=== PATIENT | male | born 1950 | race Caucasian/White ===

== ENCOUNTER 2017-05-17 11:47 | Inpatient (IN) ==
[2017-05-17] MEDS ORDERED: methylPREDNISolone 125 MG/2 ML VIAL IVP ONE (12:12)
[2017-05-17] MEDS ORDERED: Ipratropium/Albuterol Neb 3 ML IH ONE (12:12)
--- NOTE | 2017-05-17 12:21 | Emergency Department Note ---
Disposition Clinical Impression: Hypoxia, COPD exacerbation, Respiratory distress Community acquired pneumonia Qualifiers: Laterality: right Lung location: upper lobe of lung Qualified Code(s): J18.1 - Lobar pneumonia, unspecified organism Disposition: Admitted As Inpatient Condition: Fair SOB HPI - General Chief Complaint: ED Shortness of Breath/Dyspnea Stated Complaint: [place] Time Seen by Provider: 05/17/17 12:05 Source: patient, family Mode of arrival: private vehicle Limitations: no limitations Nursing Notes Reviewed: Yes Vital Signs Reviewed: Yes - History of Present Illness 66-year-old male with history of COPD with a former history of 35 year smoking 1 pack per day quit roughly 4 years ago, 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 Patient reports that he started feeling unwell over the last week. He states on Monday he started feeling more short of breath and required to wear his oxygen continuously 2 L at home. Reports usually only wears it at night. He reports a dry cough at home. Subjective fevers. No history of CAD, AL, DVT or PE. He does report he was treated for pneumonia in February confirmed by chest x-ray. Significant other in the room reports he has been on and off steroids this entire summer. He denies any chest pain during these episodes. No other complaints. Pt Subjective Complaint: shortness of breath, cough Onset (ago): day(s) Context: recent illness Severity: severe Consistency/Duration: constant Improves with: oxygen Worsens with: nothing Known history of: COPD Associated symptoms: Reports: cough. Denies: chest pain, fever, sputum production Treatment prior to arrival: oxygen, bronchodilator Cough present: Yes Cough Description: Involuntary Cough Frequency: Intermittent Sputum production: No Sputum Amount: None - Related Data Home oxygen amount: 2 liters Home Medications Medication Instructions Recorded Confirmed ALPRAZolam [Xanax 0.5 MG Tablet] 0.5 mg PO BID 05/17/17 05/17/17 Albuterol Sulfate [Ventolin Hfa] 2 puff IH Q4-6H PRN 05/17/17 05/17/17 Fluticasone/Salmeterol [Advair Hfa 1 puff IH BID 05/17/17 05/17/17 115-21 Mcg Inhaler] Ipratropium/Albuterol Neb [Duoneb] 3 ml IH Q6HR 05/17/17 05/17/17 Oxygen 2 l NS AD PRN 05/17/17 05/17/17 Tramadol HCl [Ultram] 50 mg PO QID PRN 05/17/17 05/17/17 Allergies Allergy/AdvReac Type Severity Reaction Status Date / Time Penicillins [PCN] Allergy Mild Hives Verified 05/17/17 12:00 All systems ED: reviewed and negative except as stated. Constitutional: Reports: fever (Subjective) Cardiovascular: Denies: chest pain Respiratory: Reports: cough, dyspnea. Denies: wheezes Gastrointestinal: Denies: abdominal pain, nausea, vomiting, diarrhea Past Medical History - Past Medical History Attestation: Yes The following information was validated with the patient. Source: patient Medical history: Reports: asthma, COPD, other Surgical history: Reports: non-contributory Psychiatric history: Reports: no psych history - Social History Smoking Status: Former smoker Smokeless Tobacco Status: No Alcohol use: Reports: occasionally Drug use: Reports: none Physical Exam - General Limitations: no limitations General appearance: alert, anxious - Head Head exam: atraumatic, normocephalic, normal inspection - Eye Eye exam: Present: normal appearance, EOMI - ENT ENT exam: normal exam - Neck Neck exam: Present: normal inspection, full ROM - Chest Chest inspection: Present: normal inspection, symmetric chest wall rise - Respiratory Respiratory exam: Present: accessory muscle use, prolonged expiratory phase ( Patient has diminished breath sounds bilaterally with prolonged end-expiratory phase and faint expiratory wheezing.) - Cardiovascular Cardiovascular exam: Present: normal rhythm, tachycardia, normal heart sounds - Abdominal Exam Abdominal exam: Present: soft, Non-Tender. Absent: tenderness, distention, rigidity - Extremities Exam Extremities exam: Present: normal inspection, full ROM - Expanded Upper Extremity Exam Shoulder exam: Present: normal inspection, full ROM Arm exam: Present: normal inspection, full ROM Elbow exam: Present: normal inspection, full ROM Forearm/Wrist exam: Present: normal inspection, full ROM Hand exam: Present: normal inspection, full ROM Vascular exam: Normal: radial pulse - Expanded Lower Extremity Exam Hip/Pelvis exam: Present: normal inspection, full ROM Upper leg exam: Present: normal inspection, full ROM Knee exam: Present: normal inspection, full ROM Lower leg exam: Present: normal inspection, full ROM Ankle exam: Present: normal inspection, full ROM Foot/toe exam: Present: normal inspection, full ROM Neurovascular/Tendon exam: Absent: motor deficit, sensory deficit - Neurological Exam Neurological exam: Present: alert, other (GCS 15. Nonfocal neurologic exam.) - Psychiatric Psychiatric exam: Present: normal affect, anxious - Skin Skin exam: Present: warm, dry, intact, normal color Course Course Narrative: Patient seen and examined at time of arrival. Initially satting 80% on 2 L nasal cannula. He is currently 92% at 5 L. We will obtain an EKG, chest x-ray as well as labs including troponin and BNP. I reviewed his prior history with a chest CT on 04/04 with IV contrast which showed emphysema. Given his hypoxia, tachycardia and tachypnea we will obtain blood cultures and lactate as well as an angiogram of his chest to evaluate for underlying pneumonia or PE. Patient will be provided with DuoNeb nebs and IV steroids here. Disposition pending imaging and labs. - Reevaluation(s) Reevaluation #1: Patient still sounds diminished after multiple breathing treatments. Currently awaiting results of CTA. Reevaluation #2: I discussed results of the CTA with the patient and family consistent with multifocal pneumonia. They are in agreement with staying here for management. We will give him Rocephin and Zithromax and admitted to the hospitalist service. Vital Signs Temperature 98.8 F 05/17/17 11:51 Pulse Rate 102 05/17/17 11:51 Respiratory Rate 22 05/17/17 11:51 Blood Pressure 147/77 05/17/17 11:51 O2 Sat by Pulse Oximetry 82 05/17/17 11:51 Temperature 98.5 F 05/17/17 16:22 Pulse Rate 90 05/17/17 16:22 Respiratory Rate 16 05/17/17 16:22 Blood Pressure 135/78 05/17/17 16:22 O2 Sat by Pulse Oximetry 96 05/17/17 16:39 Oxygen Delivery Oxygen Delivery Nasal Cannula Shortness of Breath/Dyspnea - [facility] Narrative Medical decision making narrative: 66-year-old male history of underlying COPD who presents to the ER due to worsening dyspnea and hypoxia. 80% here on 2 L nasal cannula. Improved on 5 L nasal cannula. EKG is nonischemic. X-ray with concern for right upper lobe pneumonia. Given his tachycardia and tachypnea and hypoxia we pursued a CT of the chest which revealed no PE however multifocal pneumonia. Patient treated with Rocephin and Zithromax for community-acquired pneumonia. Admitted to the hospitalist service with hypoxia, COPD, pneumonia. - Lab Data Lab results reviewed: Yes I reviewed the patient's lab results. Result diagrams: 05/17/17 12:11 05/17/17 12:11 Lab Results 05/17/17 05/17/17 05/17/17 Range/Units 12:11 12:11 12:11 WBC 10.4 (4.3-11.1) K/mcL RBC 4.91 (4.19-5.50) M/mcL Hgb 14.1 (12.9-16.9) g/dL Hct 44.5 (37.5-50.1) % MCV 90.6 (83.0-100.0) fL MCH 28.7 (28.0-33.3) pg MCHC 31.7 (31.6-35.5) g/dL RDW 14.0 (11.5-14.5) % Plt Count 177 (140-400) K/mcL MPV 9.6 (9.4-12.4) fL Immature Gran % 0.8 (0-4) % Seg Neutrophils % 77.6 % Lymphocytes % 5.7 % Monocytes % 14.4 % Eosinophils % 1.0 % Basophils % 0.5 % Neutrophils # 8.1 (1.6-8.9) K/mcL Lymphocytes # 0.6 (0.6-4.6) K/mcL Monocytes # 1.5 H (0.0-1.3) K/mcL Eosinophils # 0.1 (0.0-0.6) K/mcL Basophils # 0.1 (0.0-0.2) K/mcL PT 10.6 (9.4-12.1) Seconds INR 1.0 APTT 30.9 (26.0-36.0) Seconds Sodium 134 L (136-145) mEq/L Potassium 3.9 (3.5-4.5) mEq/L Chloride 91 L (98-109) mEq/L Carbon Dioxide 34 H (19-29) mEq/L BUN 12 (8-26) mg/dL Creatinine 0.64 L (0.72-1.25) mg/dL Est GFR ( Amer) > 60 (> 60) Est GFR (Non-Af Amer) > 60 (> 60) BUN/Creatinine Ratio 19 (6-26) Glucose 107 H (70-99) mg/dL POC Glucose (58-89) Calculated Osmolality 278 L (280-300) Lactic Acid (0.5-2.2) mmol/L Calcium 9.5 (8.6-10.8) mg/dL Troponin I (0-0.03) ng/mL B-Natriuretic Peptide (0-100) pg/mL 05/17/17 05/17/17 05/17/17 Range/Units 12:11 12:11 12:11 WBC (4.3-11.1) K/mcL RBC (4.19-5.50) M/mcL Hgb (12.9-16.9) g/dL Hct (37.5-50.1) % MCV (83.0-100.0) fL MCH (28.0-33.3) pg MCHC (31.6-35.5) g/dL RDW (11.5-14.5) % Plt Count (140-400) K/mcL MPV (9.4-12.4) fL Immature Gran % (0-4) % Seg Neutrophils % % Lymphocytes % % Monocytes % % Eosinophils % % Basophils % % Neutrophils # (1.6-8.9) K/mcL Lymphocytes # (0.6-4.6) K/mcL Monocytes # (0.0-1.3) K/mcL Eosinophils # (0.0-0.6) K/mcL Basophils # (0.0-0.2) K/mcL PT (9.4-12.1) Seconds INR APTT (26.0-36.0) Seconds Sodium (136-145) mEq/L Potassium (3.5-4.5) mEq/L Chloride (98-109) mEq/L Carbon Dioxide (19-29) mEq/L BUN (8-26) mg/dL Creatinine (0.72-1.25) mg/dL Est GFR ( Amer) (> 60) Est GFR (Non-Af Amer) (> 60) BUN/Creatinine Ratio (6-26) Glucose (70-99) mg/dL POC Glucose (58-89) Calculated Osmolality (280-300) Lactic Acid 1.2 (0.5-2.2) mmol/L Calcium (8.6-10.8) mg/dL Troponin I 0.00 (0-0.03) ng/mL B-Natriuretic Peptide 140 H (0-100) pg/mL 05/17/17 Range/Units 16:38 WBC (4.3-11.1) K/mcL RBC (4.19-5.50) M/mcL Hgb (12.9-16.9) g/dL Hct (37.5-50.1) % MCV (83.0-100.0) fL MCH (28.0-33.3) pg MCHC (31.6-35.5) g/dL RDW (11.5-14.5) % Plt Count (140-400) K/mcL MPV (9.4-12.4) fL Immature Gran % (0-4) % Seg Neutrophils % % Lymphocytes % % Monocytes % % Eosinophils % % Basophils % % Neutrophils # (1.6-8.9) K/mcL Lymphocytes # (0.6-4.6) K/mcL Monocytes # (0.0-1.3) K/mcL Eosinophils # (0.0-0.6) K/mcL Basophils # (0.0-0.2) K/mcL PT (9.4-12.1) Seconds INR APTT (26.0-36.0) Seconds Sodium (136-145) mEq/L Potassium (3.5-4.5) mEq/L Chloride (98-109) mEq/L Carbon Dioxide (19-29) mEq/L BUN (8-26) mg/dL Creatinine (0.72-1.25) mg/dL Est GFR ( Amer) (> 60) Est GFR (Non-Af Amer) (> 60) BUN/Creatinine Ratio (6-26) Glucose (70-99) mg/dL POC Glucose 114 H (58-89) Calculated Osmolality (280-300) Lactic Acid (0.5-2.2) mmol/L Calcium (8.6-10.8) mg/dL Troponin I (0-0.03) ng/mL B-Natriuretic Peptide (0-100) pg/mL - Radiology Data Radiology results reviewed: Yes I reviewed the patient's radiology results. Laboratory Results - last 24 hr 05/17/17 05/17/17 05/17/17 12:11 12:11 12:11 WBC 10.4 RBC 4.91 Hgb 14.1 Hct 44.5 MCV 90.6 MCH 28.7 MCHC 31.7 RDW 14.0 Plt Count 177 MPV 9.6 Immature Gran % 0.8 Seg Neutrophils % 77.6 Lymphocytes % 5.7 Monocytes % 14.4 Eosinophils % 1.0 Basophils % 0.5 Neutrophils # 8.1 Lymphocytes # 0.6 Monocytes # 1.5 H Eosinophils # 0.1 Basophils # 0.1 PT 10.6 INR 1.0 APTT 30.9 Sodium 134 L Potassium 3.9 Chloride 91 L Carbon Dioxide 34 H BUN 12 Creatinine 0.64 L Est GFR ( Amer) > 60 Est GFR (Non-Af Amer) > 60 BUN/Creatinine Ratio 19 Glucose 107 H Calculated Osmolality 278 L Lactic Acid Calcium 9.5 Troponin I B-Natriuretic Peptide 05/17/17 05/17/17 05/17/17 12:11 12:11 12:11 WBC RBC Hgb Hct MCV MCH MCHC RDW Plt Count MPV Immature Gran % Seg Neutrophils % Lymphocytes % Monocytes % Eosinophils % Basophils % Neutrophils # Lymphocytes # Monocytes # Eosinophils # Basophils # PT INR APTT Sodium Potassium Chloride Carbon Dioxide BUN Creatinine Est GFR ( Amer) Est GFR (Non-Af Amer) BUN/Creatinine Ratio Glucose Calculated Osmolality Lactic Acid 1.2 Calcium Troponin I 0.00 B-Natriuretic Peptide 140 H Chest X-Ray 05/17/17 12:12 IMPRESSION: New subtle right upper lung opacity which is suspicious for pneumonia in the appropriate clinical setting. Recommend a short-term follow-up to ensure resolution. D/ / Eleonora Philip MD / Eleonora Philip MD Interpreting Provider: Eleonora Philip MD Chest CTA 05/17/17 12:16 IMPRESSION: No evidence of acute pulmonary embolism. Mild multifocal airspace disease compatible with pneumonia, superimposed on extensive emphysema. No evidence of pleural effusion. Interval progression of T8 vertebral body compression deformity. D/ / Juan Antonio Ibarra MD / Juan Antonio Ibarra MD Interpreting Provider: Juan Antonio Ibarra MD - EKG Data EKG attestation: Yes I reviewed and interpreted this EKG. EKG results narrative: EKG demonstrates sinus tachycardia with a rate of 103. Left axis deviation. FL interval 143 QRS duration [address] elevations or depressions. No acute ischemic findings. No significant changes from previous EKG dated 12/11/13. Critical Care Time Critical Care Time: Yes Total Critical Care Time: 35 Attestation: The high probability of a clinically significant, sudden or life threatening deterioration of the [resp] system(s) required my full and direct attention, intervention and personal management. The aggregate critical care time was [35] minutes. This time is in addition to time spent performing reported procedures but includes the following: [x] Data Review and interpretation [x] Patient assessment and monitoring of vital signs [x] Documentation [x] Medication orders and management S.B.A.R. - S.B.A.R. Situation: Demographics, MOA Background: Presenting Complaint, Relevant PMH, Meds, & Allergies Assessment: Vital Signs, Course and respsone to treatment, Exam Concerns, Patient/Family Expectation, Pertinant Lab Results, Outstanding Labs Recommendation: Barrier(s) to disposition, Recommendation based on pending studies, treatments, or consults S.B.A.R. Report Given to: Dr. Marie Attestation Statement - Attestation Attestation: I examined this patient and my medical decision-making was reviewed with the Resident Physician, Dr. Hernandez. I agree with the documented findings, disposition and treatment plan as described except to the extent set forth below. Patient is a 66-year-old white male with a history of COPD who presents to the emergency department with gradually worsening shortness of breath and hypoxia in mild respiratory distress on arrival. According to the patient and his he has been struggling with his breathing for the past 3 months and was treated for pneumonia about 2 months ago. Patient states that he has had occasional exacerbations of his COPD since that time and his breathing just has not returned normal. Patient denies any fevers or chills currently, no recent upper respiratory infections or colds no sore throat. Patient denies any chest pain or heaviness, no palpitations, no abdominal pain, no nausea vomiting or posttussive emesis. Patient denies any lower extremity pain or cramping. I agree patient's physical exam findings as documented. On patient assessment here he was started on DuoNeb as well as IV steroids placed on continuous cardiac monitoring and pulse ox. Patient with minimal air movement on auscultation throughout ED course. Due to ongoing tachycardia we decided to go ahead with CT of the chest to rule out PE. His initial chest x- ray shows findings suspicious for right upper lobe pneumonia. No evidence of pneumothorax. Patient's CTA was negative for PE but does show a multifocal pneumonia. Patient was started on Rocephin and Zithromax to cover for community -acquired pneumonia and remained stable on supplemental O2 by nasal cannula at this time. Case was discussed with the hospitalist who accepted patient for admission for further evaluation and treatment of his pneumonia, acute exacerbation COPD and respiratory distress with hypoxia.
[2017-05-17 12:27] LABS: Basophils # 0.1 K/mcL (0.0-0.2); Basophils % 0.5 %; Eosinophils # 0.1 K/mcL (0.0-0.6); Hematocrit 44.5 % (37.5-50.1); Hemoglobin 14.1 g/dL (12.9-16.9); Immature Granulocytes % 0.8 % (0-4); Lymphocytes # 0.6 K/mcL (0.6-4.6); Lymphocytes % 5.7 %; Mean Corpuscular HGB Conc 31.7 g/dL (31.6-35.5); Mean Corpuscular Hemoglobin 28.7 pg (28.0-33.3); Mean Corpuscular Volume 90.6 fL (83.0-100.0); Mean Platelet Volume 9.6 fL (9.4-12.4); Monocytes # 1.5 K/mcL (0.0-1.3); Monocytes % 14.4 %; Neutrophils # 8.1 K/mcL (1.6-8.9); Platelet Count 177 K/mcL (140-400); Red Blood Count 4.91 M/mcL (4.19-5.50); Segmented Neutrophils % 77.6 %
[2017-05-17 12:30] LABS: Prothrombin Time 10.6 Seconds (9.4-12.1)
[2017-05-17 12:32] LABS: Activated Partial Thrombo Time 30.9 Seconds (26.0-36.0)
[2017-05-17 12:37] LABS: BUN/Creatinine Ratio 19 (6-26); Blood Urea Nitrogen 12 mg/dL (8-26); Calcium 9.5 mg/dL (8.6-10.8); Carbon Dioxide 34 mEq/L (19-29); Chloride 91 mEq/L (98-109); Glucose 107 mg/dL (70-99); Osmolality,Calculated 278 (280-300); Potassium 3.9 mEq/L (3.5-4.5); Sodium 134 mEq/L (136-145); eGFR For African Americans > 60 (> 60); eGFR For Non-African Americans > 60 (> 60)
[2017-05-17] MEDS ORDERED: 0.9 % Sodium Chloride 1,000 ML IVC ONE (12:42)
[2017-05-17] MEDS ORDERED: Azithromycin 500 MG in D5% in Water 250 ML IVPB ONE (14:34)
[2017-05-17] MEDS ORDERED: Albuterol 2.5 MG/3 ML NEBULIZER IH PRN (15:24)
--- NOTE | 2017-05-17 16:08 | Internal Med History&Physical ---
<Jovan Tohmas - Last Filed: 05/17/17 17:16> Date of Encounter: 05/17/17 Time of Encounter: 15:54 Assessment and Plan (1) Acute and chronic respiratory failure Current visit: Yes Status: Acute - Like secondary to COPD exacerbation which is secondary to underlying PNA. - CXR in ED showed new stable RUL opacity suspicious of PNA as well as hyperinflation consistent with COPD - CTA in ED showed PNA superimposed on emyphysema. - Afebrile, no white count, tolerating 3L at low 90s. - Received duonebs x 3, methylprednisone 125mg, azithromycin/rocephin in ED with improvement of symptoms. - Will order echo and stress test to rule out possible cardiac etiologies. - Treatment as below. Qualifiers: Respiratory failure complication: unspecified whether with hypoxia or hypercapnia Qualified Code(s): J96.20 - Acute and chronic respiratory failure , unspecified whether with hypoxia or hypercapnia (2) COPD exacerbation Current visit: Yes Status: Acute - Known hx of COPD with a 35 pack year history - Duobebs q4 hours Wheezing, prednisone 40mg Qday - Continue rocephin and azithromycin - Tolerating 3 L supplemental O2 currently. Low 90s (3) Community acquired pneumonia Current visit: Yes Status: Acute - As evidence in RUL on CTA and CXR. - Treated outpatient with levaquin in February. - Continue rocephin and azithromycin Qualifiers: Laterality: right Lung location: upper lobe of lung Qualified Code(s): J18.1 - Lobar pneumonia, unspecified organism (4) DVT prophylaxis Current visit: Yes Status: Acute heparin 5000 units. Internal Medicine - H&P: HPI Chief complaint: dyspnea Admitted From: Emergency Dept Plans for Post Hospital Care: Home History of present illness: Mr. Schmidt is a 66 year old male who presents to the ED with a complaint of progressive SOB since monday. He has a significant PMhx of COPD with 2L of home O2. He states that over the past couple of days, he has developed SOB at rest, exacerbated with exertion, and cough with thick yellow sputum. He is a former smoker of 35 year pack history but quit 4 years ago. He has been admitted for COPD exacerbation in the past, most recently in 2013. He was also treated for PNA in February with levaquin and was given a short burst of prednisone in March for dyspnea with resolution of his symptoms. He also admits to dark urine with some back tenderness and also states he does experience seasonal allergies. He states he woke up monday in a cold sweat. He denies any symptoms of chest pain, fevers, abdominal pain. He denies any cardiac history in self or family. In the emergency department, he was 80% on 2L and improved to 92% on 5L. He was given 3 duonebs, 125 methylprednisone, 1L NS, and started on azithromycin and rocephin. EKG showed sinus tachycardia with HR of 103. Chest Xray in ED showed new subtle RUL opacity. CTA showed possible PNA superimpsed on emphysema. Labs wnl. Past Med Surg Social Fam HX - Past Medical History Medical history: asthma, COPD, other (testicular cancer s/p chemo and orichectomy ) Psychiatric history: no psych history - Past Surgical History Surgical History: non-contributory - Social History Smoking Status: Former smoker Smokeless Tobacco Status: No Alcohol use: occasionally Drug use: none Internal Medicine - H&P: Meds ALPRAZolam [Xanax 0.5 MG Tablet] 0.5 mg PO BID 05/17/17 [History] Albuterol Sulfate [Ventolin Hfa] 2 puff IH Q4-6H PRN 05/17/17 [History] Fluticasone/Salmeterol [Advair Hfa 115-21 Mcg Inhaler] 1 puff IH BID 05/17/17 [ History] Ipratropium/Albuterol Neb [Duoneb] 3 ml IH Q6HR 05/17/17 [History] Oxygen 2 l NS AD PRN 05/17/17 [History] Tramadol HCl [Ultram] 50 mg PO QID PRN 05/17/17 [History] 3 Allergy/AdvReac Type Severity Reaction Status Date / Time Penicillins [PCN] Allergy Mild Hives Verified 05/17/17 12:00 All Systems PM: A 10-system review of systems was performed and is negative for pertinent findings except as documented above in the HPI. - Constitutional Constitutional: as per HPI, excessive sweating (resolved), no fever(s), no falls , no weakness - EENT Nose, mouth and throat: no facial pain, no post-nasal drip, no sinus pressure, no sore throat - Cardiovascular Cardiovascular ROS IM: diaphoresis, dyspnea, dyspnea on exertion, no chest pain , no claudication, no lightheadedness, no palpitations - Respiratory Respiratory: cough, dyspnea, change in phlegm color, no hemoptysis, no chest congestion - Gastrointestinal Gastrointestinal: no abdominal pain, no change in bowel habits, no nausea, no vomiting - Genitourinary Genitourinary ROS male: flank pain, no hematuria, no urinary frequency, no urinary hesitancy Additional comments: dark urine color - Musculoskeletal Musculoskeletal ROS IM: as per HPI, no muscle weakness - Integumentary Integumentary IM: as per HPI - Neurological Neurological ROS: as per HPI, no confusion, no headache(s), no weakness - Allergic/Immunologic Allergic/Immunologic: seasonal rhinorrhea, wheezing - Constitutional Vitals: Temp Pulse Resp BP Pulse Ox 98.8 F 102 18 146/83 94 05/17/17 11:51 05/17/17 15:00 05/17/17 15:23 05/17/17 15:23 05/17/17 15:00 General appearance: Present: cooperative, A&O X 3, no acute distress, underweight, answers questions appropriately - Head Head exam: Present: atraumatic, normal inspection, normocephalic Additional comments: mild tenderness to palpation of ethmoid sinus - Eye Eye exam: Present: EOMI, PERRL Pupils: Present: PERRL - ENT ENT exam: Present: mucous membranes moist, normal oropharynx - Neck Neck exam general surgery: Present: full ROM - Respiratory Respiratory exam: Present: accessory muscle use, prolonged expiratory phase, wheezes. Absent: chest wall tenderness, respiratory distress Additional comments: b/l lower lobes - Cardiovascular Cardiovascular exam: Present: RRR, +S1, +S2, tachycardia. Absent: diastolic murmur, rubs, systolic murmur - GI/Abdominal GI/Abdominal exam: Present: normal bowel sounds, soft. Absent: tenderness - Extremities Exam Extremities exam: Present: cyanotic, normal inspection, warm. Absent: calf tenderness, joint swelling Additional comments: cyanosis of b/l upper extremity, chronic per patient. - Back Exam Back exam: Present: CVA tenderness (L), CVA tenderness (R) - Neurological Exam Neurological exam: Present: alert, CN II-XII intact, oriented X3, no focal deficits, strengths equal and symetr throughout. Absent: facial droop, speech deficit - Psychiatric Psychiatric exam: Present: normal affect, normal mood - Skin Skin exam: Present: cyanosis, warm Additional comments: b/l UE cyanosis Internal Med - H&P Results - Labs CBC & Chem 7: 05/17/17 12:11 05/17/17 12:11 <Ananda Key P - Last Filed: 05/17/17 17:21> Date of Encounter: 05/17/17 Internal Medicine - H&P: HPI History of present illness: Mr. Schmidt is a 66 year old male All Systems PM: A 10-system review of systems was performed and is negative for pertinent findings except as documented above in the HPI. - Constitutional Vitals: Temp Pulse Resp BP Pulse Ox 98.5 F 90 16 135/78 96 05/17/17 16:22 05/17/17 16:22 05/17/17 16:22 05/17/17 16:22 05/17/17 16:39 Internal Med - H&P Results - Labs CBC & Chem 7: 05/17/17 12:11 05/17/17 12:11 - Attending Attestation I examined this patient and my medical decision-making was reviewed with the Resident Physician. I agree with the documented findings, disposition and treatment plan as described except to the extent set forth below. 66/male Background history of COPD. Worsening shortness of breath. Admitted with generalized weakness/pleuritic chest pain/shortness of breath. Plan: We will treated as a COPD exacerbation. We will get echocardiogram/stress test. Hypertension has moderate to severe risk of worsening in spite of being on appropriate treatment
[2017-05-17] MEDS: *HR* Heparin 5,000 UNIT/ML VIAL SQ SCH (17:11)
[2017-05-17] MEDS: Budesonide/Formoterol 160/4.5 MDI IH SCH (20:00)
[2017-05-17] MEDS: Ipratropium/Albuterol Neb 3 ML IH SCH (20:00)
[2017-05-17 20:02] LABS: Bilirubin,Urine Negative (Negative); Blood,Urine Negative (Negative); Clarity,Urine Clear (Clear); Color,Urine Yellow (Yellow); Glucose,Urine (UA) >=1000 mg/dL (Normal); Ketones,Urine 40 mg/dL (Negative); Leukocyte Esterase,Urine Negative (Negative); Nitrite,Urine Negative (Negative); Protein,Urine Trace mg/dL (Neg-Trace); Specific Gravity,Urine > 1.030 (1.010-1.025); Urobilinogen,Urine Normal (Normal)
[2017-05-17 20:04] LABS: Bacteria,Urine None Seen per hpf (None-Few); Hyaline Casts,Urine None Seen per lpf (None-Few); RBC,Urine 0-3 per hpf (0-3); Squamous Epithelial Cell,Urine Moderate per lpf (None-Few); WBC,Urine 0-3 per hpf (0-3)
[2017-05-17] MEDS: ALPRAZolam 0.5 MG TABLET PO SCH (20:34)
[2017-05-18] MEDS: Ipratropium/Albuterol Neb 3 ML IH SCH ×5 (00:31→23:15)
[2017-05-18 05:22] LABS: Hematocrit 39.9 % (37.5-50.1); Hemoglobin 13.2 g/dL (12.9-16.9); Immature Granulocytes % 0.3 % (0-4); Immature Platelets 4.6 % (1.1-6.1); Lymphocytes # 0.3 K/mcL (0.6-4.6); Lymphocytes % 4.2 %; Mean Corpuscular HGB Conc 33.1 g/dL (31.6-35.5); Mean Corpuscular Hemoglobin 30.5 pg (28.0-33.3); Mean Corpuscular Volume 92.1 fL (83.0-100.0); Mean Platelet Volume 9.8 fL (9.4-12.4); Monocytes # 0.7 K/mcL (0.0-1.3); Monocytes % 9.5 %; Neutrophils # 6.5 K/mcL (1.6-8.9); Platelet Count 178 K/mcL (140-400); Red Blood Count 4.33 M/mcL (4.19-5.50); Red Cell Distribution Width 13.6 % (11.5-14.5)
[2017-05-18] MEDS ORDERED: Regadenoson 0.4 MG/5 ML SYRINGE IVP ONE (06:17)
[2017-05-18 06:26] LABS: Alanine Aminotransferase 15 Units/L (0-55); Albumin 2.6 g/dL (3.5-5.0); Albumin/Globulin Ratio 0.7 (1.1-2.2); Alkaline Phosphatase 70 Units/L (38-126); Aspartate Amino Transferase 11 Units/L (5-34); BUN/Creatinine Ratio 19 (6-26); Blood Urea Nitrogen 12 mg/dL (8-26); Carbon Dioxide 37 mEq/L (19-29); Chloride 101 mEq/L (98-109); Globulin 3.6 g/dL (2.4-3.5); Glucose 142 mg/dL (70-99); Osmolality,Calculated 296 (280-300); Total Protein 6.2 g/dL (6.0-8.3); eGFR For African Americans > 60 (> 60); eGFR For Non-African Americans > 60 (> 60)
[2017-05-18] MEDS: *HR* Heparin 5,000 UNIT/ML VIAL SQ SCH ×2 (06:32→18:28)
[2017-05-18 06:39] LABS: Bilirubin,Total < 0.2 mg/dL (0.2-1.2); Potassium 5.1 mEq/L (3.5-4.5); Sodium 142 mEq/L (136-145)
--- NOTE | 2017-05-18 07:40 | Electrocardiograph Report ---
[facility] Test Date: 2017-05-17 Pat Name: Maxi Schmidt Department: 105 Room: 2NE33 Gender: M Neurology Technician: : 1950 Requested By: Samm Hernandez Order Number: [id number] Reading MD: Bubba Oden DO Measurements Intervals [place] Rate: 103 P: 82 AR: 143 QRS: -89 QRSD: 97 T: 55 QT: 327 QTc: 386 Interpretive Statements SINUS TACHYCARDIA POSSIBLE LEFT ATRIAL ENLARGEMENT [-0.1mV P WAVE IN V1/V2] INCOMPLETE RIGHT BUNDLE BRANCH BLOCK [90+ ms QRS DURATION, TERMINAL R IN V1/V2, 40+ ms S IN I/aVL/V4/V5/V6] LEFT ANTERIOR FASCICULAR BLOCK [QRS AXIS <= -45, QR IN I, RS IN II] SLOW R WAVE PROGRESSION Electronically Signed On 05-18-2017 7:38:33 EDT by Bubba Oden DO
[2017-05-18] MEDS: predniSONE 20 MG TABLET PO SCH (09:17)
[2017-05-18] MEDS: Azithromycin 250 MG TABLET PO SCH (09:17)
--- NOTE | 2017-05-18 09:47 | Internal Med Progress Note ---
<Jovan Thomas - Last Filed: 05/18/17 16:31> Date of Encounter: 05/18/17 Time of Encounter: 09:30 - Assessment and plan (1) Acute and chronic respiratory failure Current Visit: Yes Status: Acute Assessment and plan: - Likely secondary to COPD exacerbation secondary to pneumonia as seen on CXR and CTA chest in ED - Clinically improving with prednisone 40Qday, azithromycin, rocephin, duonebs. - Tolerating 3L O2 in low 90s. - Ruling out cardiac causes with echo this AM, nuclear stress test this afternoon. - Echo normal, EF 65%, moderate pulmonary HTN likely secondary to COPD Qualifiers: Respiratory failure complication: hypoxia Qualified Code(s): J96.21 - Acute and chronic respiratory failure with hypoxia (2) COPD exacerbation Current Visit: Yes Status: Acute Assessment and plan: As above - Improving - Continue steroids, azithromcyin, duonebs (3) Community acquired pneumonia Current Visit: Yes Status: Acute Assessment and plan: - Improving. - Still present: cough, diaphoresis, SOB - Continue rocephin. Noted allergy to PCN, however is tolerating well with no signs of allergic reaction. Qualifiers: Laterality: right Lung location: upper lobe of lung Qualified Code(s): J18.1 - Lobar pneumonia, unspecified organism (4) Diaphoresis Current Visit: Yes Status: Acute Assessment and plan: - Patient reports again waking up drenched in sweat - Given history of testicular cancer in 2003, urology was consulted for possible recurrence - Ordered labs for beta HBG, alpha-fetoprotein, LDH - After speaking his urology this afternoon, will agree to reconsult if any of the above lab findings are elevated. If lab results are within normal limits urology will see as outpatient follow-up. (5) DVT prophylaxis Current Visit: Yes Status: Acute Assessment and plan: Heparin 5000 units BID - Time Spent With Patient 25 - 35 minutes - Subjective Interval history: Mr. Schmidt was seen and examined at bedside this morning. he states he is still experiencing some SOB, but it is much better compared to when he presented to the ED. He is currently speaking in full sentences at 3L. Still admits to cough as well, but states it is no longer productive and that he hasn't been getting his breathing treatments or home spiriva this morning because of the cardiac testing. He continues to deny fevers, chest pain, but does state he woke up sweating again last night. - Constitutional Vitals: Temp Pulse Resp BP Pulse Ox 98.0 F 87 18 131/66 95 05/18/17 08:12 05/18/17 08:12 05/18/17 08:12 05/18/17 08:12 05/18/17 09:15 General appearance: Present: cooperative, A&O X 3, no acute distress, underweight, answers questions appropriately Exam: Gen.: Vitals noted. No acute distress. AAOx3, speaking in full sentences on 3 L NC. HEENT: PERRL/EOMI, oropharynx clear, Normocephalic, atraumatic, MMM. Neck: Supple. No adenopathy. Cardiac: RRR, no murmur, +S1/S2 Pulmonary: Mild wheezing i b/l lung bases, mildly improved from yesterday. no rales or rhonchi, equal chest expansion Abdomen: soft, nontender, BS noted, no guarding MSK: ROM intact, no joint swelling noted Extremities: Cyanosis on PE yesterday resolved. no BLE edema, nontender calf, no cyanosis or clubbing Neuro: A&Ox3, moves all extremities, no focal deficits Psych: Appropriate mood and behavior Internal Medicine: Result - Labs CBC & Chem 7: 05/18/17 04:46 05/18/17 04:46 Labs: Short CBC 05/18/17 Range/Units 04:46 WBC 7.5 (4.3-11.1) K/mcL Hgb 13.2 (12.9-16.9) g/dL Hct 39.9 (37.5-50.1) % Plt Count 178 (140-400) K/mcL Neutrophils # 6.5 (1.6-8.9) K/mcL BMP 05/18/17 04:46 Sodium 142 D Potassium 5.1 H D Chloride 101 Carbon Dioxide 37 H BUN 12 Creatinine 0.62 L Glucose 142 H Calcium 9.0 Cardiac Enzymes 05/17/17 Range/Units 17:53 Troponin I 0.01 (0-0.03) ng/mL Liver Function 05/18/17 Range/Units 04:46 Total Bilirubin < 0.2 L (0.2-1.2) mg/dL AST 11 (5-34) Units/L ALT 15 (0-55) Units/L Alkaline Phosphatase 70 (38-126) Units/L Albumin 2.6 L (3.5-5.0) g/dL Urine 05/17/17 Range/Units 19:48 Urine Color Yellow (Yellow) Urine Clarity Clear (Clear) Urine pH 6.0 (5.0-8.0) pH Units Ur Specific [place] > 1.030 H (1.010-1.025) Urine Protein Trace (Neg-Trace) mg/dL Urine Glucose (UA) >=1000 H (Normal) mg/dL - ABG Interpretation ABG results: PT/INR, D-dimer PT 10.6 Seconds (9.4-12.1) 05/17/17 12:11 Consult Discharge Plan - Plan Referrals: NONE,PCP [Primary Care Provider] - <Ananda Key P - Last Filed: 05/18/17 17:57> Date of Encounter: 05/18/17 - Constitutional Vitals: Temp Pulse Resp BP Pulse Ox 98.1 F 103 18 128/67 93 05/18/17 16:43 05/18/17 16:43 05/18/17 16:43 05/18/17 16:43 05/18/17 16:43 Internal Medicine: Result - Labs CBC & Chem 7: 05/18/17 04:46 05/18/17 04:46 Labs: Short CBC 05/18/17 Range/Units 04:46 WBC 7.5 (4.3-11.1) K/mcL Hgb 13.2 (12.9-16.9) g/dL Hct 39.9 (37.5-50.1) % Plt Count 178 (140-400) K/mcL Neutrophils # 6.5 (1.6-8.9) K/mcL BMP 05/18/17 04:46 Sodium 142 D Potassium 5.1 H D Chloride 101 Carbon Dioxide 37 H BUN 12 Creatinine 0.62 L Glucose 142 H Calcium 9.0 Cardiac Enzymes 05/17/17 Range/Units 17:53 Troponin I 0.01 (0-0.03) ng/mL Liver Function 05/18/17 Range/Units 04:46 Total Bilirubin < 0.2 L (0.2-1.2) mg/dL AST 11 (5-34) Units/L ALT 15 (0-55) Units/L Alkaline Phosphatase 70 (38-126) Units/L Albumin 2.6 L (3.5-5.0) g/dL Urine 05/17/17 Range/Units 19:48 Urine Color Yellow (Yellow) Urine Clarity Clear (Clear) Urine pH 6.0 (5.0-8.0) pH Units Ur Specific [place] > 1.030 H (1.010-1.025) Urine Protein Trace (Neg-Trace) mg/dL Urine Glucose (UA) >=1000 H (Normal) mg/dL - ABG Interpretation ABG results: PT/INR, D-dimer PT 10.6 Seconds (9.4-12.1) 05/17/17 12:11 - Attending Attestation I examined this patient and my medical decision-making was reviewed with the Resident Physician. I agree with the documented findings, disposition and treatment plan as described except to the extent set forth below. Stress test negative. Noted that patient had a excessive She will sweating last night. We will update urology as he has a previous history of a testicular tumor. Noted that patient's stress test was negative. Likely home tomorrow.
[2017-05-18 09:55] LABS: Hemoglobin A1C 5.6 %
[2017-05-18] MEDS: Budesonide/Formoterol 160/4.5 MDI IH SCH ×2 (10:34→23:15)
[2017-05-18] MEDS: ALPRAZolam 0.5 MG TABLET PO SCH ×2 (13:45→22:06)
--- NOTE | 2017-05-18 13:50 | Nuclear Medicine Stress Report ---
Regadenoson Nuclear Stress Name: Maxi Schmidt Date of Study: 05/18/2017 Date: 1950 Ht: 70.0 in Medical Record#: [id number] Age: 66 Wt: 140.0 lb Gender: Male Order #: [id number] Location: [facility] Room: [facility] Supervising Provider: Anup Gordon CNP Reading Physician: Glen Rob MD, [facility] Ordering Physician: Chrissie Patterson MD Primary Care Physician: Saeed Vinson MD Stress Technologist: Jennifer Vicente SUPERVISOR [employer], CCT Customizer: Roberth Anthony Indications: Chest Pain Impression: Gated LVEF = 68%. Perfusion imaging was negative for ischemia or infarct. Stress Test Summary: Stress Test Type: Pharmacologic Regadenoson 0.4mg/5ml given IV Baseline Information: Initial Heart Rate: 96 Blood Pressure: 136/72 Stress Information: Test Terminated Due to (primary): As per protocol Maximum Blood Pressure: 148/50 Maximum Heart Rate: 113 Percent Maximum Heart Rate Achieved: 73 Double Product: [id number] Symptoms: No chest symptoms Nuclear Summary: SPECT myocardial perfusion imaging using Tc99m Sestamibi given intravenously was performed at rest and following cardiac stress testing. The resting images were obtained following initial dose of 10.9 mCi. Following stress an additional dose of 31.0 mCi was given at peak exercise or 30 seconds post regadenoson infusion. Findings: Stress Note * Resting ECG demonstrated sinus rhythm, incomplete RBBB. * No baseline arrhythmias were noted. * Patient had no chest pain during stress. * No arrhythmias were noted during stress. * No significant ECG changes with regadenoson. Hemodynamic responses * Normal hemodynamic responses to pharmacologic stress. Study Quality * Study quality is average. Gated EF % * Gated LVEF = 68%. Left Ventricle * The left ventricle is not dilated. * Normal Segmental Perfusion in rest. * Normal segmental perfusion in stress. TID * No evidence of transient ischemic dilatation. Updated by Glen Rob MD, [facility] on 05/18/2017 1:42:59 PM electronically signed on 05/18/2017 1:43:30 PM with status of Final
[2017-05-19] MEDS: Ipratropium/Albuterol Neb 3 ML IH SCH ×4 (03:33→22:58)
[2017-05-19 05:07] LABS: Hematocrit 42.4 % (37.5-50.1); Hemoglobin 13.2 g/dL (12.9-16.9); Mean Corpuscular HGB Conc 31.1 g/dL (31.6-35.5); Mean Corpuscular Hemoglobin 28.9 pg (28.0-33.3); Mean Platelet Volume 9.6 fL (9.4-12.4); Platelet Count 203 K/mcL (140-400); Red Blood Count 4.56 M/mcL (4.19-5.50); Red Cell Distribution Width 13.9 % (11.5-14.5)
[2017-05-19 05:10] LABS: BUN/Creatinine Ratio 28 (6-26); Blood Urea Nitrogen 17 mg/dL (8-26); Calcium 9.2 mg/dL (8.6-10.8); Carbon Dioxide 38 mEq/L (19-29); Chloride 95 mEq/L (98-109); Glucose 106 mg/dL (70-99); Lactate Dehydrogenase 152 Units/L (159-327); Osmolality,Calculated 290 (280-300); Sodium 139 mEq/L (136-145); eGFR For African Americans > 60 (> 60); eGFR For Non-African Americans > 60 (> 60)
[2017-05-19 05:12] LABS: Potassium 3.9 mEq/L (3.5-4.5)
[2017-05-19] MEDS: *HR* Heparin 5,000 UNIT/ML VIAL SQ SCH ×2 (06:37→18:07)
[2017-05-19] MEDS: Azithromycin 250 MG TABLET PO SCH (09:28)
[2017-05-19] MEDS: ALPRAZolam 0.5 MG TABLET PO SCH ×2 (09:29→22:50)
[2017-05-19] MEDS: predniSONE 20 MG TABLET PO SCH (09:29)
[2017-05-19] MEDS: traMADol 50 MG TABLET PO PRN ×2 (09:40→18:13)
[2017-05-19] MEDS: Budesonide/Formoterol 160/4.5 MDI IH SCH ×2 (10:44→22:58)
--- NOTE | 2017-05-19 11:54 | Internal Med Progress Note ---
<Jovan Thomas - Last Filed: 05/19/17 12:59> Date of Encounter: 05/19/17 Time of Encounter: 11:51 - Assessment and plan (1) Acute and chronic respiratory failure Current Visit: Yes Status: Acute Assessment and plan: - Likely secondary to COPD exacerbation secondary to pneumonia as seen on CXR and CTA chest in ED - Clinically improving with prednisone 40Qday, azithromycin, rocephin, duonebs. - Tolerating 4L O2 in high 90s. - Cardiac causes unlikely given normal echocardiogram and stress test yesterday. - Continue current treatment and attempt to wean to home O2 of 2L. Qualifiers: Respiratory failure complication: hypoxia Qualified Code(s): J96.21 - Acute and chronic respiratory failure with hypoxia (2) COPD exacerbation Current Visit: Yes Status: Acute Assessment and plan: As above - Improving - Continue steroids, azithromcyin, duonebs (3) Community acquired pneumonia Current Visit: Yes Status: Acute Assessment and plan: - Improving. - Still present: cough, SOB - Continue rocephin. Noted allergy to PCN, however is tolerating well with no signs of allergic reaction. Qualifiers: Laterality: right Lung location: upper lobe of lung Qualified Code(s): J18.1 - Lobar pneumonia, unspecified organism (4) Diaphoresis Current Visit: Yes Status: Acute Assessment and plan: - No episodes of diaphoresis last evening. - Given history of testicular cancer in 2003, urology was consulted for possible recurrence. Ordered labs or AFP, LDH, B-hcg, determined that if any values were elevated, could reconsult. Low likelihood of reoccurrence. - Ordered labs for beta HBG, alpha-fetoprotein, LDH - LDH came back 152, normal. (5) DVT prophylaxis Current Visit: Yes Status: Acute Assessment and plan: Heparin 5000 units BID - Time Spent With Patient 25 - 35 minutes - Subjective Interval history: Mr. Schmidt was seen and examined at bedside this morning. He states his cough and SOB is the same as yesterday. He denies any diaphoresis overnight. His cough is productive with thick white sputum. He otherwise is asymptomatic. No fevers or chills. - Constitutional Vitals: Temp Pulse Resp BP Pulse Ox 98.7 F 92 20 114/60 98 05/19/17 01:19 05/19/17 01:19 05/19/17 03:33 05/19/17 01:19 05/19/17 03:33 General appearance: Present: cooperative, A&O X 3, no acute distress, underweight, answers questions appropriately - Head Head exam: Present: atraumatic, normal inspection, normocephalic - ENT ENT exam: Present: mucous membranes moist - Neck Neck exam general surgery: Present: full ROM - Respiratory Additional comments: Mild wheezes in left middle and lower lobes. Otherwise CTA. - Cardiovascular Cardiovascular exam: Present: RRR, +S1, +S2. Absent: diastolic murmur, systolic murmur - GI/Abdominal GI/Abdominal exam: Present: normal bowel sounds, soft. Absent: tenderness - Psychiatric Psychiatric exam: Present: normal affect, normal mood - Skin Skin exam: Present: dry, normal color, warm Internal Medicine: Result - Labs CBC & Chem 7: 05/19/17 04:49 05/19/17 04:49 Labs: Short CBC 05/19/17 Range/Units 04:49 WBC 10.5 (4.3-11.1) K/mcL Hgb 13.2 (12.9-16.9) g/dL Hct 42.4 (37.5-50.1) % Plt Count 203 (140-400) K/mcL BMP 05/19/17 04:49 Sodium 139 Potassium 3.9 D Chloride 95 L Carbon Dioxide 38 H BUN 17 Creatinine 0.61 L Glucose 106 H Calcium 9.2 - ABG Interpretation ABG results: PT/INR, D-dimer PT 10.6 Seconds (9.4-12.1) 05/17/17 12:11 Consult Discharge Plan - Plan Referrals: NONE,PCP [Primary Care Provider] - <Ananda Key P - Last Filed: 05/19/17 18:01> Date of Encounter: 05/19/17 - Constitutional Vitals: Temp Pulse Resp BP Pulse Ox 98.7 F 92 16 114/60 94 05/19/17 01:19 05/19/17 01:19 05/19/17 16:23 05/19/17 01:19 05/19/17 16:23 Internal Medicine: Result - Labs CBC & Chem 7: 05/19/17 04:49 05/19/17 04:49 Labs: Short CBC 05/19/17 Range/Units 04:49 WBC 10.5 (4.3-11.1) K/mcL Hgb 13.2 (12.9-16.9) g/dL Hct 42.4 (37.5-50.1) % Plt Count 203 (140-400) K/mcL BMP 05/19/17 04:49 Sodium 139 Potassium 3.9 D Chloride 95 L Carbon Dioxide 38 H BUN 17 Creatinine 0.61 L Glucose 106 H Calcium 9.2 - ABG Interpretation ABG results: PT/INR, D-dimer PT 10.6 Seconds (9.4-12.1) 05/17/17 12:11 - Attending Attestation I examined this patient and my medical decision-making was reviewed with the Resident Physician. I agree with the documented findings, disposition and treatment plan as described except to the extent set forth below. desaturated upon less than 10 feet of walking We will continue present treatment and likely home over the weekend
[2017-05-20] MEDS: Ipratropium/Albuterol Neb 3 ML IH SCH ×4 (04:17→22:25)
[2017-05-20 05:44] LABS: Hematocrit 41.8 % (37.5-50.1); Hemoglobin 13.1 g/dL (12.9-16.9); Mean Corpuscular HGB Conc 31.3 g/dL (31.6-35.5); Mean Corpuscular Volume 92.5 fL (83.0-100.0); Mean Platelet Volume 9.6 fL (9.4-12.4); Platelet Count 213 K/mcL (140-400); Red Blood Count 4.52 M/mcL (4.19-5.50); Red Cell Distribution Width 13.8 % (11.5-14.5)
[2017-05-20 06:06] LABS: BUN/Creatinine Ratio 18 (6-26); Blood Urea Nitrogen 10 mg/dL (8-26); Calcium 9.1 mg/dL (8.6-10.8); Chloride 91 mEq/L (98-109); Glucose 88 mg/dL (70-99); Osmolality,Calculated 280 (280-300); Potassium 4.4 mEq/L (3.5-4.5); Sodium 136 mEq/L (136-145); eGFR For African Americans > 60 (> 60); eGFR For Non-African Americans > 60 (> 60)
[2017-05-20 06:29] LABS: Carbon Dioxide 40 mEq/L (19-29)
[2017-05-20] MEDS: *HR* Heparin 5,000 UNIT/ML VIAL SQ SCH ×2 (06:41→17:40)
[2017-05-20] MEDS: Budesonide/Formoterol 160/4.5 MDI IH SCH ×2 (10:20→22:25)
[2017-05-20] MEDS: predniSONE 20 MG TABLET PO SCH (10:32)
[2017-05-20] MEDS: ALPRAZolam 0.5 MG TABLET PO SCH ×2 (10:32→21:58)
[2017-05-20] MEDS: Azithromycin 250 MG TABLET PO SCH (10:33)
[2017-05-20] MEDS: Mag Hydrox/Al Hydrox/Simeth 30 ML UDC PO PRN (10:44)
--- NOTE | 2017-05-20 10:53 | Internal Med Progress Note ---
<Glen Good - Last Filed: 05/20/17 10:50> Date of Encounter: 05/20/17 Time of Encounter: 10:50 - Assessment and plan (1) Acute and chronic respiratory failure Current Visit: Yes Status: Acute Assessment and plan: Likely secondary to COPD exacerbation in the setting of pneumonia. Patient appears to be clinically improving. He is satting well on 3 L, will attempt to wean down to 2 L which is his home dose. Patient has a follow-up appointment next week with pulmonology at [facility]. Qualifiers: Respiratory failure complication: hypoxia Qualified Code(s): J96.21 - Acute and chronic respiratory failure with hypoxia (2) Community acquired pneumonia Current Visit: Yes Status: Acute Assessment and plan: Patient continues to show gradual improvement. Continue azithromycin and Rocephin. Qualifiers: Laterality: right Lung location: upper lobe of lung Qualified Code(s): J18.1 - Lobar pneumonia, unspecified organism (3) COPD exacerbation Current Visit: Yes Status: Acute Assessment and plan: Likely related to pneumonia as discussed above. Gradually improving. Continue steroids, antibiotics, scheduled bronchodilators. (4) Diaphoresis Current Visit: Yes Status: Acute Assessment and plan: No episodes of diaphoresis reported recently. Given history of testicular cancer in 2003 AFP, B-hcg are pending, LDH is normal. Spoke With urology and they feel that there is a Low likelihood of reoccurrence. If there are any lab abnormalities, will reconsult urology. (5) DVT prophylaxis Current Visit: Yes Status: Acute Assessment and plan: Heparin 5000 units BID - Subjective Interval history: Patient seen and examined at bedside. Patient states that he feels slightly better but still has some shortness of breath on exertion and nonproductive cough. He denies fever, chills. - Constitutional Vitals: Temp Pulse Resp BP Pulse Ox 97 F L 80 16 151/85 96 05/20/17 03:30 05/20/17 08:54 05/20/17 10:20 05/20/17 08:54 05/20/17 10:20 General appearance: Present: cooperative, A&O X 3, no acute distress, underweight, answers questions appropriately - Respiratory Respiratory exam: Present: wheezes (Mild, diffuse). Absent: rales, respiratory distress, rhonchi, tachypnea - Cardiovascular Cardiovascular exam: Present: RRR. Absent: gallop, rubs, systolic murmur - GI/Abdominal GI/Abdominal exam: Present: normal bowel sounds, soft. Absent: distended, tenderness - Extremities Exam Extremities exam: Present: warm. Absent: pedal edema, tenderness - Neurological Exam Neurological exam: Present: alert, CN II-XII intact, oriented X3, no focal deficits Internal Medicine: Result - Labs CBC & Chem 7: 05/20/17 05:03 05/20/17 05:03 Labs: Short CBC 05/20/17 Range/Units 05:03 WBC 5.7 (4.3-11.1) K/mcL Hgb 13.1 (12.9-16.9) g/dL Hct 41.8 (37.5-50.1) % Plt Count 213 (140-400) K/mcL [facility] 05/20/17 05:03 Sodium 136 Potassium 4.4 Chloride 91 L Carbon Dioxide 40 H* BUN 10 Creatinine 0.57 L Glucose 88 Calcium 9.1 - ABG Interpretation ABG results: PT/INR, D-dimer PT 10.6 Seconds (9.4-12.1) 05/17/17 12:11 Consult Discharge Plan - Plan Referrals: NONE,PCP [Primary Care Provider] - <Ananda Key P - Last Filed: 05/20/17 18:46> Date of Encounter: 05/20/17 - Constitutional Vitals: Temp Pulse Resp BP Pulse Ox 98.0 F 88 16 156/85 95 05/20/17 15:42 05/20/17 15:42 05/20/17 16:02 05/20/17 15:42 05/20/17 16:02 Internal Medicine: Result - Labs CBC & Chem 7: 05/20/17 05:03 05/20/17 05:03 Labs: Short CBC 05/20/17 Range/Units 05:03 WBC 5.7 (4.3-11.1) K/mcL Hgb 13.1 (12.9-16.9) g/dL Hct 41.8 (37.5-50.1) % Plt Count 213 (140-400) K/mcL [facility] 05/20/17 05:03 Sodium 136 Potassium 4.4 Chloride 91 L Carbon Dioxide 40 H* BUN 10 Creatinine 0.57 L Glucose 88 Calcium 9.1 - ABG Interpretation ABG results: PT/INR, D-dimer PT 10.6 Seconds (9.4-12.1) 05/17/17 12:11 - Attending Attestation I examined this patient and my medical decision-making was reviewed with the Resident Physician. I agree with the documented findings, disposition and treatment plan as described except to the extent set forth below.
[2017-05-20] MEDS: traMADol 50 MG TABLET PO PRN (16:50)
[2017-05-21] MEDS: Ipratropium/Albuterol Neb 3 ML IH SCH ×4 (04:02→22:57)
[2017-05-21] MEDS: *HR* Heparin 5,000 UNIT/ML VIAL SQ SCH ×2 (05:25→18:16)
[2017-05-21 06:29] LABS: Basophils % 0.6 %; Eosinophils % 0.8 %; Hematocrit 43.2 % (37.5-50.1); Hemoglobin 13.7 g/dL (12.9-16.9); Immature Granulocytes % 1.1 % (0-4); Lymphocytes % 19.5 %; Mean Corpuscular HGB Conc 31.7 g/dL (31.6-35.5); Mean Corpuscular Hemoglobin 29.1 pg (28.0-33.3); Mean Corpuscular Volume 91.7 fL (83.0-100.0); Mean Platelet Volume 9.1 fL (9.4-12.4); Monocytes # 0.8 K/mcL (0.0-1.3); Monocytes % 14.5 %; Neutrophils # 3.3 K/mcL (1.6-8.9); Platelet Count 220 K/mcL (140-400); Red Blood Count 4.71 M/mcL (4.19-5.50); Red Cell Distribution Width 13.5 % (11.5-14.5); Segmented Neutrophils % 63.5 %
[2017-05-21 06:50] LABS: BUN/Creatinine Ratio 18 (6-26); Blood Urea Nitrogen 10 mg/dL (8-26); Calcium 9.2 mg/dL (8.6-10.8); Chloride 90 mEq/L (98-109); Glucose 81 mg/dL (70-99); Magnesium 2.2 mg/dL (1.6-2.6); Osmolality,Calculated 282 (280-300); Potassium 4.3 mEq/L (3.5-4.5); Sodium 137 mEq/L (136-145); eGFR For African Americans > 60 (> 60); eGFR For Non-African Americans > 60 (> 60)
[2017-05-21 06:53] LABS: Carbon Dioxide 42 mEq/L (19-29)
[2017-05-21] MEDS: ALPRAZolam 0.5 MG TABLET PO SCH ×2 (09:34→21:13)
[2017-05-21] MEDS: Azithromycin 250 MG TABLET PO SCH (09:35)
[2017-05-21] MEDS: predniSONE 20 MG TABLET PO SCH (09:35)
[2017-05-21] MEDS: Mag Hydrox/Al Hydrox/Simeth 30 ML UDC PO PRN ×2 (10:31→21:17)
--- NOTE | 2017-05-21 10:34 | Internal Med Progress Note ---
<JamesGlen oswald - Last Filed: 05/21/17 11:09> Date of Encounter: 05/21/17 Time of Encounter: 10:30 - Assessment and plan (1) Acute and chronic respiratory failure Current Visit: Yes Status: Acute Assessment and plan: Likely secondary to COPD exacerbation in the setting of pneumonia. Patient appears to be clinically improving. He is satting well on 2 L which is his home dose. Bicarb on BMP is rising slightly, will obtain overnight BiPAP qualification. Patient has a follow-up appointment next week with pulmonology at [facility]. Qualifiers: Respiratory failure complication: hypoxia Qualified Code(s): J96.21 - Acute and chronic respiratory failure with hypoxia (2) Community acquired pneumonia Current Visit: Yes Status: Acute Assessment and plan: Patient continues to show gradual improvement. Continue azithromycin and Rocephin. Qualifiers: Laterality: right Lung location: upper lobe of lung Qualified Code(s): J18.1 - Lobar pneumonia, unspecified organism (3) COPD exacerbation Current Visit: Yes Status: Acute Assessment and plan: Likely related to pneumonia as discussed above. Gradually improving. Continue steroids, antibiotics, scheduled bronchodilators. (4) Diaphoresis Current Visit: Yes Status: Acute Assessment and plan: No episodes of diaphoresis reported recently. Given history of testicular cancer in 2003 AFP, B-hcg are pending, LDH is normal. Spoke With urology and they feel that there is a Low likelihood of reoccurrence. If there are any lab abnormalities, will reconsult urology. (5) DVT prophylaxis Current Visit: Yes Status: Acute Assessment and plan: Heparin 5000 units BID - Subjective Interval history: Patient seen and examined at bedside. Patient states that he feels slightly better but still has some shortness of breath on exertion and nonproductive cough. He denies fever, chills. - Constitutional Vitals: Temp Pulse Resp BP Pulse Ox 97.6 F 85 20 144/92 97 05/21/17 05:00 05/21/17 05:00 05/21/17 05:00 05/21/17 05:00 05/21/17 05:00 General appearance: Present: cooperative, A&O X 3, no acute distress, underweight, answers questions appropriately - Respiratory Respiratory exam: Present: decreased breath sounds. Absent: rales, respiratory distress, rhonchi, wheezes, tachypnea - Cardiovascular Cardiovascular exam: Present: RRR. Absent: gallop, rubs, systolic murmur - GI/Abdominal GI/Abdominal exam: Present: normal bowel sounds, soft. Absent: distended, tenderness - Extremities Exam Extremities exam: Present: warm. Absent: pedal edema, tenderness - Neurological Exam Neurological exam: Present: alert, CN II-XII intact, oriented X3, no focal deficits Internal Medicine: Result - Labs CBC & Chem 7: 05/21/17 05:56 05/21/17 05:56 Labs: Short CBC 05/21/17 Range/Units 05:56 WBC 5.2 (4.3-11.1) K/mcL Hgb 13.7 (12.9-16.9) g/dL Hct 43.2 (37.5-50.1) % Plt Count 220 (140-400) K/mcL Neutrophils # 3.3 (1.6-8.9) K/mcL BMP 05/21/17 05:56 Sodium 137 Potassium 4.3 Chloride 90 L Carbon Dioxide 42 H* BUN 10 Creatinine 0.56 L Glucose 81 Calcium 9.2 - ABG Interpretation ABG results: PT/INR, D-dimer PT 10.6 Seconds (9.4-12.1) 05/17/17 12:11 Consult Discharge Plan - Plan Referrals: NONE,PCP [Primary Care Provider] - <Ananda Key P - Last Filed: 05/21/17 13:31> Date of Encounter: 05/21/17 - Constitutional Vitals: Temp Pulse Resp BP Pulse Ox 97.6 F 85 15 144/92 99 05/21/17 05:00 05/21/17 05:00 05/21/17 11:27 05/21/17 05:00 05/21/17 11:27 Internal Medicine: Result - Labs CBC & Chem 7: 05/21/17 05:56 05/21/17 05:56 Labs: Short CBC 05/21/17 Range/Units 05:56 WBC 5.2 (4.3-11.1) K/mcL Hgb 13.7 (12.9-16.9) g/dL Hct 43.2 (37.5-50.1) % Plt Count 220 (140-400) K/mcL Neutrophils # 3.3 (1.6-8.9) K/mcL BMP 05/21/17 05:56 Sodium 137 Potassium 4.3 Chloride 90 L Carbon Dioxide 42 H* BUN 10 Creatinine 0.56 L Glucose 81 Calcium 9.2 - ABG Interpretation ABG results: PT/INR, D-dimer PT 10.6 Seconds (9.4-12.1) 05/17/17 12:11 - Attending Attestation I examined this patient and my medical decision-making was reviewed with the Resident Physician. I agree with the documented findings, disposition and treatment plan as described except to the extent set forth below.
[2017-05-21] MEDS: Budesonide/Formoterol 160/4.5 MDI IH SCH ×2 (11:25→22:57)
[2017-05-22] MEDS: Ipratropium/Albuterol Neb 3 ML IH SCH ×3 (03:43→15:45)
[2017-05-22 06:20] LABS: Basophils # 0.1 K/mcL (0.0-0.2); Basophils % 0.8 %; Eosinophils # 0.1 K/mcL (0.0-0.6); Eosinophils % 1.7 %; Hematocrit 47.4 % (37.5-50.1); Immature Granulocytes % 2.1 % (0-4); Lymphocytes # 1.3 K/mcL (0.6-4.6); Lymphocytes % 17.1 %; Mean Corpuscular HGB Conc 31.6 g/dL (31.6-35.5); Mean Corpuscular Hemoglobin 28.8 pg (28.0-33.3); Mean Platelet Volume 8.8 fL (9.4-12.4); Monocytes # 0.9 K/mcL (0.0-1.3); Monocytes % 12.1 %; Platelet Count 258 K/mcL (140-400); Red Blood Count 5.21 M/mcL (4.19-5.50); Red Cell Distribution Width 13.8 % (11.5-14.5); Segmented Neutrophils % 66.2 %
[2017-05-22 06:24] LABS: BUN/Creatinine Ratio 17 (6-26); Blood Urea Nitrogen 11 mg/dL (8-26); Calcium 9.7 mg/dL (8.6-10.8); Chloride 91 mEq/L (98-109); Glucose 91 mg/dL (70-99); Magnesium 2.4 mg/dL (1.6-2.6); Osmolality,Calculated 281 (280-300); Potassium 4.8 mEq/L (3.5-4.5); Sodium 136 mEq/L (136-145); eGFR For African Americans > 60 (> 60); eGFR For Non-African Americans > 60 (> 60)
[2017-05-22 06:27] LABS: Carbon Dioxide 40 mEq/L (19-29)
[2017-05-22] MEDS: *HR* Heparin 5,000 UNIT/ML VIAL SQ SCH (06:32)
[2017-05-22 07:46] LABS: ABG Base Excess 16.6 mEq/L (-2.0 to 3.0); ABG HCO3 44 mEq/L (21-27); ABG Oxygen Saturation 93 % (95-98); ABG PCO2 60 mmHg (35-45); ABG PH 7.47 pH Units (7.32-7.45); ABG PO2 64 mmHg (85-104); ABG TCO2 45.5 mEq/L (20-26)
[2017-05-22 07:47] LABS: Blood Gas FiO2 28 %; Blood Gas Modality NC
[2017-05-22 07:56] LABS: AFP Tumor Marker Non-Pregnant 2 ng/mL (0-9)
[2017-05-22] MEDS: predniSONE 20 MG TABLET PO SCH (09:50)
[2017-05-22] MEDS: ALPRAZolam 0.5 MG TABLET PO SCH (09:51)
[2017-05-22] MEDS: Azithromycin 250 MG TABLET PO SCH (09:51)
[2017-05-22] MEDS: Budesonide/Formoterol 160/4.5 MDI IH SCH (10:25)
[2017-05-22 11:37] VITALS: BP 161/86
--- NOTE | 2017-05-22 13:19 | Discharge Summary ---
Date of Encounter: 05/22/17 Time of Encounter: 10:00 - Discharge Diagnosis (1) Hypoxia Priority: Primary Status: Acute (2) COPD exacerbation Priority: Primary Status: Acute (3) Acute and chronic respiratory failure Priority: Primary Status: Acute Qualifiers: Respiratory failure complication: hypoxia Qualified Code(s): J96.21 - Acute and chronic respiratory failure with hypoxia (4) DVT prophylaxis Priority: Secondary Status: Acute (5) Community acquired pneumonia Priority: Primary Status: Acute Qualifiers: Laterality: right Lung location: upper lobe of lung Qualified Code(s): J18.1 - Lobar pneumonia, unspecified organism - Discharge Medications Prescriptions: Azithromycin [Zithromax] 500 mg PO DAILY #5 tab predniSONE [PredniSONE] See Taper PO DAILY #10 tab Home Medications: ALPRAZolam [Xanax 0.5 MG Tablet] 0.5 mg PO BID 05/17/17 [History] Albuterol Sulfate [Ventolin Hfa] 2 puff IH Q4-6H PRN 05/17/17 [History] Fluticasone/Salmeterol [Advair Hfa 115-21 Mcg Inhaler] 1 puff IH BID 05/17/17 [ History] Ipratropium/Albuterol Neb [Duoneb] 3 ml IH Q6HR 05/17/17 [History] Oxygen 2 l NS AD PRN 05/17/17 [History] Tramadol HCl [Ultram] 50 mg PO QID PRN 05/17/17 [History] Azithromycin [Zithromax] 500 mg PO DAILY #5 tab 05/22/17 [Rx] predniSONE [PredniSONE] See Taper PO DAILY #10 tab 05/22/17 [Rx] Allergies/Adverse Reactions: 3 Allergy/AdvReac Type Severity Reaction Status Date / Time Penicillins [PCN] Allergy Mild Hives Verified 05/17/17 12:00 Date of admission: 05/17/17 17:17 Primary care physician: PCP NONE Discharging clinician: Chrissie Patterson Anticipated date of discharge: 05/22/17 - Patient Status Disposition: Home Health Service Condition: Fair Functional capacity at discharge: independent ambulation Overall status at discharge: patient is back to baseline - Discharge Instructions Follow Up With: NONE,PCP [Primary Care Provider] - - Diet and Activity Activity: increase activity as tolerated Diet: regular diet Interval History: HPI: Mr. Schmidt is a 66 year old male who presents to the ED with a complaint of progressive SOB since monday. He has a significant PMhx of COPD with 2L of home O2. He states that over the past couple of days, he has developed SOB at rest, exacerbated with exertion, and cough with thick yellow sputum. He is a former smoker of 35 year pack history but quit 4 years ago. He has been admitted for COPD exacerbation in the past, most recently in 2013. He was also treated for PNA in February with levaquin and was given a short burst of prednisone in March for dyspnea with resolution of his symptoms. He also admits to dark urine with some back tenderness and also states he does experience seasonal allergies. He states he woke up monday in a cold sweat. He denies any symptoms of chest pain, fevers, abdominal pain. He denies any cardiac history in self or family. In the emergency department, he was 80% on 2L and improved to 92% on 5L. He was given 3 duonebs, 125 methylprednisone, 1L NS, and started on azithromycin and rocephin. EKG showed sinus tachycardia with HR of 103. Chest Xray in ED showed new subtle RUL opacity. CTA showed possible PNA superimpsed on emphysema. Labs wnl. Hospital course: Mr. Schmidt is a 66 year old male admitted for CHF exacerbation and community acquired pneumonia. Patient has a severe desaturation in ER and the need 5 L oxygen to maintain oxygen saturation. CTA has been done, no PE. Nuclear stress test has been done, no signs of ischemia. Patient was treated with antibiotic, steroid, and bronchodilator. After treatment, his condition has improved significantly. Now his oxygen saturation 94% on 2 L nasal cannula, which is at his baseline. Patient qualify for home BiPAP because of hypercapnia. We will arrange home BiPAP for him. We will discharge patient on by mouth antibiotics and taper down steroids. I saw and examined the patient today. He is awake alert and oriented 3. In no acute respiratory distress. Vitals are stable. Patient will discharge home with home health, home oxygen, home BiPAP, po abx and taper down steroid. - Time Spent with Patient Total time spent providing and/or coordinating discharge services: 40 min Greater than 30 minutes - Constitutional Vitals: Temp Pulse Resp BP Pulse Ox 98.4 F 88 16 161/86 94 05/22/17 11:35 05/22/17 11:35 05/22/17 11:35 05/22/17 11:35 05/22/17 11:35 General appearance: Present: cooperative, A&O X 3, no acute distress, underweight, answers questions appropriately - Head Head exam: Present: atraumatic, normocephalic - Eye Eye exam: Present: PERRL, conjuntiva pink, sclera anicteric Pupils: Present: PERRL - Neck Neck exam general surgery: Present: supple, trachea midline. Absent: lymphadenopathy - Respiratory Respiratory exam: Present: CTAB. Absent: accessory muscle use, rales, rhonchi, wheezes - Cardiovascular Cardiovascular exam: Present: RRR, +S1, +S2. Absent: diastolic murmur, gallop, rubs, systolic murmur - GI/Abdominal GI/Abdominal exam: Present: normal bowel sounds, soft, no peritoneal signs. Absent: distended, tenderness - Extremities Exam Extremities exam: Present: warm, radial pulses palpable and symmetrical. Absent : calf tenderness, cyanotic, pedal edema - Neurological Exam Neurological exam: Present: CN II-XII intact, oriented X3, no focal deficits. Absent: pronater drift, facial droop, speech deficit - Skin Skin exam: Present: dry, intact
--- NOTE | 2017-05-22 13:35 | Physician Discharge Referral ---
Home Health/Hosp Referral Info Transfer to: Home Health Provider in Charge Post Discharge: PCP - Diagnosis (1) Hypoxia Status: Acute (2) COPD exacerbation Status: Acute (3) Acute and chronic respiratory failure Status: Acute (4) DVT prophylaxis Status: Acute (5) Community acquired pneumonia Status: Acute - Respiratory Orders Oxygen / L per min (2-3, BiPAP during night.) Smoking Cessation: Smoking cessation has been advised. For more information, call the [place] Tobacco Quit Line at 0-236-JTAH-NOW. - Diet/Nutrition Diet/Nutrition Orders: Regular - Services Needed Following services are medically necessary services: Nursing, Home Health Aide, Physical Therapy, Occupational Therapy - Transfer Medications Prescriptions: Azithromycin [Zithromax] 500 mg PO DAILY #5 tab predniSONE [PredniSONE] See Taper PO DAILY #10 tab Home Medications: ALPRAZolam [Xanax 0.5 MG Tablet] 0.5 mg PO BID 05/17/17 [History] Albuterol Sulfate [Ventolin Hfa] 2 puff IH Q4-6H PRN 05/17/17 [History] Fluticasone/Salmeterol [Advair Hfa 115-21 Mcg Inhaler] 1 puff IH BID 05/17/17 [ History] Ipratropium/Albuterol Neb [Duoneb] 3 ml IH Q6HR 05/17/17 [History] Oxygen 2 l NS AD PRN 05/17/17 [History] Tramadol HCl [Ultram] 50 mg PO QID PRN 05/17/17 [History] Azithromycin [Zithromax] 500 mg PO DAILY #5 tab 05/22/17 [Rx] predniSONE [PredniSONE] See Taper PO DAILY #10 tab 05/22/17 [Rx] Allergies/Adverse Reactions: 3 Allergy/AdvReac Type Severity Reaction Status Date / Time Penicillins [PCN] Allergy Mild Hives Verified 05/17/17 12:00 Certification: Further, I certify that my clinical findings support that this patient is homebound (i.e. absences from home require considerable and taxing effort and are for medical reasons or shinto services or infrequently or short duration when for other reasons) because: Homebound Reason: Patient requires assistance of a person or device to safely leave home Attestation: My signature below is to certify that this patient is under my care and that I, or nurse practitioner, or a physician's hearing and speech assistant working with me, has a face-to -face encounter with this patient.
== END 2017-05-22 15:40 | disposition home health service (06) | DRG 189 ==
LOC: EMEROO 11:47 → 2NENU 11:47
PROVIDERS: ADMIT Internal Medicine; ATTEND Internal Medicine

== ENCOUNTER 2017-11-07 17:20 | Inpatient (IN) ==
[2017-11-07] MEDS ORDERED: Ipratropium/Albuterol Neb 3 ML IH ONE (17:22)
[2017-11-07] MEDS ORDERED: methylPREDNISolone 125 MG/2 ML VIAL IVP ONE (17:22)
[2017-11-07 18:02] LABS: ABG Base Excess 8 mEq/L (-2 to 3); ABG HCO3 43 mEq/L (21-27); ABG Oxygen Saturation 98 % (95-98); ABG PCO2 123 mmHg (35-45); ABG PH 7.15 pH Units (7.32-7.45); ABG PO2 147 mmHg (85-104); ABG TCO2 47 mEq/L (20-26); Blood Gas Modality BiLevel
--- NOTE | 2017-11-07 18:05 | Emergency Department Note ---
Disposition Clinical Impression: Acute exacerbation of chronic obstructive airways disease Disposition: Admitted As Inpatient Condition: Fair Time of Disposition: 19:00 SOB HPI - General Chief Complaint: ED Shortness of Breath/Dyspnea Stated Complaint: [place] Time Seen by Provider: 11/07/17 17:21 Source: patient, EMS Limitations: no limitations Nursing Notes Reviewed: Yes Vital Signs Reviewed: Yes - History of Present Illness Patient is a 66-year-old male who presents to [facility] ED with a chief complaint of shortness of breath. Past medical history significant for severe COPD in which she is about to undergo a lung reduction surgery at the [facility]. He follows with Dr. Alanis virtual customer assistant there. Patient states he has done well up until a few days ago. His was recently diagnosed with a bacterial pneumonia. Patient started taking azithromycin and he is on day 4 of this. Denies any nausea, vomiting, fever or chills. States the difficulty breathing really started earlier today. Pt is on bipap at night but has been unable to tolerate it the last several nights. Pt Subjective Complaint: shortness of breath Onset (ago): hour(s) Context: recent illness Severity: severe Consistency/Duration: gradually worsening Improves with: nothing Worsens with: exertion Known history of: COPD Associated symptoms: Reports: denies other symptoms, wheezing. Denies: chest pain, fever, cough, nausea/vomiting, abdominal pain Treatment prior to arrival: oxygen, bronchodilator Cough present: No - Related Data Home oxygen amount: 2 liters Home Medications Medication Instructions Recorded Confirmed ALPRAZolam [Xanax 0.5 MG Tablet] 0.5 mg PO BID 05/17/17 11/07/17 Oxygen 2 l NS AD 05/17/17 11/07/17 Albuterol Sulfate [Ventolin Hfa] 2 puff IH Q4H PRN 06/12/17 11/07/17 Ipratropium/Albuterol Neb [Duoneb] 3 ml IH TID 06/12/17 11/07/17 Azithromycin [Azithromycin] 250 mg PO DAILY 11/07/17 11/07/17 Budesonide/Formoterol 160/4.5 2 puff IH BIDR 11/07/17 11/07/17 [Symbicort 160/4.5] Ergocalciferol (VITAMIN D2) 50,000 unit PO QWEEK 11/07/17 11/07/17 [Vitamin D2] Umeclidinium [place] [Incruse 62.5 mcg IH DAILY 11/07/17 11/07/17 Ellipta] predniSONE [PredniSONE] 10 mg PO DAILY 11/07/17 11/07/17 Allergies Allergy/AdvReac Type Severity Reaction Status Date / Time Penicillins [PCN] Allergy Mild Hives Verified 05/17/17 12:00 All systems ED: reviewed and negative except as stated. Past Medical History - Past Medical History Attestation: Yes The following information was validated with the patient. Source: patient Medical history: Reports: asthma, COPD, other Surgical history: Reports: non-contributory Psychiatric history: Reports: no psych history - Social History Smoking Status: Former smoker Smokeless Tobacco Status: No Alcohol use: Reports: occasionally Drug use: Reports: none Physical Exam - General Limitations: no limitations General appearance: alert, in no apparent distress - Head Head exam: atraumatic, normocephalic, normal inspection - Eye Eye exam: Present: normal appearance, EOMI - ENT ENT exam: normal exam, normal oropharynx, mucous membranes moist - Neck Neck exam: Present: normal inspection, full ROM, trachea midline - Chest Chest inspection: Present: normal inspection, symmetric chest wall rise - Respiratory Respiratory exam: Present: other (Decreased breath sounds throughout all lung gomez) - Cardiovascular Cardiovascular exam: Present: normal rhythm, tachycardia - Abdominal Exam Abdominal exam: Present: soft, Non-Tender. Absent: tenderness, distention, guarding, rebound, rigidity - Extremities Exam Extremities exam: Present: normal inspection, full ROM. Absent: tenderness, pedal edema - Back Exam Back exam: Present: normal inspection, full ROM. Absent: tenderness - Neurological Exam Neurological exam: Present: alert, oriented X3 - Psychiatric Psychiatric exam: Present: normal affect, normal mood - Skin Skin exam: Present: warm, dry, intact, normal color Course Course Narrative: Patient seen and examined. Difficulty breathing. Cardiopulmonary workup initiated. Patient's aeration on both lung sides are extremely poor. A stat chest x-ray was ordered to rule out a pneumothorax. Appears to show hyperaeration. No signs of effusion or pneumothorax. - Reevaluation(s) Reevaluation #1: Labwork shows respiratory acidosis. Pt tolerating bipap currently with RR 25. Discussed code status with . Pt is DNR-CCA. They are open to temporary intubation. Discussed with hospitalist Dr. Vasquez. Pt admitted to ICU for COPD exacerbation. Time: 19:00 Vital Signs Temperature 98.2 F 11/07/17 17:22 Pulse Rate 112 11/07/17 17:22 Respiratory Rate 22 11/07/17 17:22 Blood Pressure 202/92 11/07/17 17:22 O2 Sat by Pulse Oximetry 99 11/07/17 17:22 Temperature 98.2 F 11/07/17 17:22 Pulse Rate 106 11/07/17 18:19 Respiratory Rate 22 11/07/17 19:39 Blood Pressure 151/83 11/07/17 19:39 O2 Sat by Pulse Oximetry 98 11/07/17 18:19 Oxygen Delivery Oxygen Delivery Bipap Shortness of Breath/Dyspnea - Medical Records Medical records reviewed: Yes I reviewed the patient's medical records. - Lab Data Lab results reviewed: Yes I reviewed the patient's lab results. Result diagrams: 11/07/17 18:02 11/07/17 18:02 Lab Results 11/07/17 11/07/17 11/07/17 Range/Units 17:49 18:02 18:02 WBC 15.6 H (4.3-11.1) K/mcL RBC 4.28 (4.19-5.50) M/mcL Hgb 13.1 (12.9-16.9) g/dL Hct 40.7 (37.5-50.1) % MCV 95.1 (83.0-100.0) fL MCH 30.6 (28.0-33.3) pg MCHC 32.2 (31.6-35.5) g/dL RDW 12.7 (11.5-14.5) % Plt Count 313 (140-400) K/mcL MPV 9.0 L (9.4-12.4) fL Immature Gran % 0.6 (0-4) % Seg Neutrophils % 73.3 % Lymphocytes % 8.6 % Monocytes % 16.1 % Eosinophils % 0.9 % Basophils % 0.5 % Neutrophils # 11.4 H (1.6-8.9) K/mcL Lymphocytes # 1.3 (0.6-4.6) K/mcL Monocytes # 2.5 H (0.0-1.3) K/mcL Eosinophils # 0.1 (0.0-0.6) K/mcL Basophils # 0.1 (0.0-0.2) K/mcL Sample Site L Radial ABG pH 7.15 L* (7.32-7.45) pH Units ABG pCO2 123 H* (35-45) mmHg ABG pO2 147 H (85-104) mmHg ABG HCO3 43 H (21-27) mEq/L ABG Total CO2 47 H (20-26) mEq/L ABG O2 Saturation 98 (95-98) % ABG Base Excess 8 H (-2 to 3) mEq/L Kt Test N/A O2 Delivery Device BiPAP Blood Gas Modality BiLevel Inspired O2 35.0 (1-15=lpm [id number]=%) Sodium 131 L (136-145) mEq/L Potassium 4.3 (3.5-5.1) mEq/L Chloride 86 L (98-107) mEq/L Carbon Dioxide 38 H (23-29) mEq/L BUN 9 (8-23) mg/dL Creatinine 0.42 L (0.70-1.30) mg/dL Est GFR ( Amer) > 60 (> 60) Est GFR (Non-Af Amer) > 60 (> 60) BUN/Creatinine Ratio 21 (6-26) Glucose 152 H (70-105) mg/dL Calculated Osmolality 274 L (280-300) Lactic Acid (0.5-2.2) mmol/L Calcium 9.5 (8.6-10.3) mg/dL Troponin I 0.04 H* (< 0.04) ng/mL B-Natriuretic Peptide (Less than 100) pg/mL 11/07/17 11/07/17 Range/Units 18:02 18:02 WBC (4.3-11.1) K/mcL RBC (4.19-5.50) M/mcL Hgb (12.9-16.9) g/dL Hct (37.5-50.1) % MCV (83.0-100.0) fL MCH (28.0-33.3) pg MCHC (31.6-35.5) g/dL RDW (11.5-14.5) % Plt Count (140-400) K/mcL MPV (9.4-12.4) fL Immature Gran % (0-4) % Seg Neutrophils % % Lymphocytes % % Monocytes % % Eosinophils % % Basophils % % Neutrophils # (1.6-8.9) K/mcL Lymphocytes # (0.6-4.6) K/mcL Monocytes # (0.0-1.3) K/mcL Eosinophils # (0.0-0.6) K/mcL Basophils # (0.0-0.2) K/mcL Sample Site ABG pH (7.32-7.45) pH Units ABG pCO2 (35-45) mmHg ABG pO2 (85-104) mmHg ABG HCO3 (21-27) mEq/L ABG Total CO2 (20-26) mEq/L ABG O2 Saturation (95-98) % ABG Base Excess (-2 to 3) mEq/L Kt Test O2 Delivery Device Blood Gas Modality Inspired O2 (1-15=lpm [id number]=%) Sodium (136-145) mEq/L Potassium (3.5-5.1) mEq/L Chloride (98-107) mEq/L Carbon Dioxide (23-29) mEq/L BUN (8-23) mg/dL Creatinine (0.70-1.30) mg/dL Est GFR ( Amer) (> 60) Est GFR (Non-Af Amer) (> 60) BUN/Creatinine Ratio (6-26) Glucose (70-105) mg/dL Calculated Osmolality (280-300) Lactic Acid 0.6 (0.5-2.2) mmol/L Calcium (8.6-10.3) mg/dL Troponin I (< 0.04) ng/mL B-Natriuretic Peptide 143 H (Less than 100) pg/mL - Radiology Data Radiology results reviewed: Yes I reviewed the patient's radiology results. Chest X-Ray 11/07/17 17:22 IMPRESSION: COPD. No acute cardiopulmonary process. D/ / 11/07/2017 17:35:10 Angeli Philip MD / karis Interpreting Provider: Angeli Philip MD - EKG Data EKG attestation: Yes I reviewed and interpreted this EKG. EKG results narrative: EKG done at 1724 shows sinus tachycardia with a rate of [address] elevation or depression. Poor quality EKG.
[2017-11-07] MEDS ORDERED: *HR* LORazepam 2 MG/ML VIAL IVP ONE (18:12)
[2017-11-07 18:25] LABS: Basophils # 0.1 K/mcL (0.0-0.2); Basophils % 0.5 %; Eosinophils # 0.1 K/mcL (0.0-0.6); Eosinophils % 0.9 %; Hematocrit 40.7 % (37.5-50.1); Hemoglobin 13.1 g/dL (12.9-16.9); Immature Granulocytes % 0.6 % (0-4); Lymphocytes # 1.3 K/mcL (0.6-4.6); Lymphocytes % 8.6 %; Mean Corpuscular HGB Conc 32.2 g/dL (31.6-35.5); Mean Corpuscular Hemoglobin 30.6 pg (28.0-33.3); Mean Corpuscular Volume 95.1 fL (83.0-100.0); Monocytes # 2.5 K/mcL (0.0-1.3); Monocytes % 16.1 %; Neutrophils # 11.4 K/mcL (1.6-8.9); Platelet Count 313 K/mcL (140-400); Red Blood Count 4.28 M/mcL (4.19-5.50); Red Cell Distribution Width 12.7 % (11.5-14.5); Segmented Neutrophils % 73.3 %
--- NOTE | 2017-11-07 18:37 | Emergency Department Note ---
START Narrative - START START: I examined this patient and my medical decision-making was reviewed with the Resident Physician. I agree with the documented findings, disposition and treatment plan as described except to the extent set forth below. 66 year old male prsentes to the ED with complaints of dyspnea and states that he has recently been exposed to a viral illness by his and recently had a procedure done at [facility] For lung reduction due to his chronic COPD. He appears to be in acute distress and we have placed him on Bipap and he states this is very similar to the way he presented during his last COPD excebration in [facility] when he was admited here. Denies ever needing intubated for respiratory failure. Aspen will be resusuitated here and then admitted to [facility].
[2017-11-07 18:46] LABS: BUN/Creatinine Ratio 21 (6-26); Blood Urea Nitrogen 9 mg/dL (8-23); Calcium 9.5 mg/dL (8.6-10.3); Carbon Dioxide 38 mEq/L (23-29); Chloride 86 mEq/L (98-107); Glucose 152 mg/dL (70-105); Osmolality,Calculated 274 (280-300); Potassium 4.3 mEq/L (3.5-5.1); Sodium 131 mEq/L (136-145); eGFR For African Americans > 60 (> 60); eGFR For Non-African Americans > 60 (> 60)
[2017-11-07 18:50] LABS: Troponin I 0.04 ng/mL (< 0.04)
[2017-11-07] MEDS ORDERED: Naloxone 0.4 MG/ML INJ IVP PRN (20:06)
[2017-11-07] MEDS: ALPRAZolam 0.5 MG TABLET PO SCH (20:28)
[2017-11-07 20:34] LABS: ABG Base Excess 12 mEq/L (-2 to 3); ABG HCO3 44 mEq/L (21-27); ABG Oxygen Saturation 91 % (95-98); ABG PCO2 98 mmHg (35-45); ABG PH 7.26 pH Units (7.32-7.45); ABG PO2 75 mmHg (85-104); ABG TCO2 47 mEq/L (20-26)
--- NOTE | 2017-11-07 20:56 | Internal Med History&Physical ---
<Khushbu Mancini - Last Filed: 11/07/17 22:33> Date of Encounter: 11/07/17 Time of Encounter: 20:45 Assessment and Plan (1) COPD exacerbation Current visit: No Status: Acute History of COPD, increase in dyspnea for 4 days. He has taken azithromycin and for 4 days along with prednisone without improvement of dyspnea, cough with brown sputum, fever. Currently in pulmonary rehab for preparation to undergo lung volume reduction surgery at [facility]. His infectious disease technician is Dr. Alanis. On 2L oxygen continuous and BiPAP at night. Likely COPD exacerbation, concern for influenza. WBC is likely elevated secondary to steroids. CXR demonstrated COPD and not pneumonia. ABG: pH 7.26 CO2 98 O2 75 HCO3 44 influenza negative afebrile Plan: start Levaquin continue BiPAP IV Solu-Medrol respiratory infectious panel pending repeat CXR tomorrow a.m. israel Escobar (2) Acute and chronic respiratory failure Current visit: No Status: Acute Improved on BiPAP. ABG: pH 7.26 CO2 98 O2 75 HCO3 44 Initial ABG: pH 7.15 CO2 123 O2 147 HCO3 43. Qualifiers: Respiratory failure complication: hypoxia Qualified Code(s): J96.21 - Acute and chronic respiratory failure with hypoxia (3) DVT prophylaxis Current visit: No Status: Acute Heparin sq Internal Medicine - H&P: HPI Chief complaint: Difficulty in breathing Admitted From: Emergency Dept Plans for Post Hospital Care: Home History of present illness: Mr. Schmidt is a 66 year old male with a H COPD, testicular cancer ( orchiectomy 2003) who presented to [facility] complaining of difficulty in breathing for the past 4 days. He is currently undergoing pulmonary rehab for lung volume reduction surgery to be done at [facility] and just had a pulmonary rehab session yesterday. His infectious disease technician at [facility] is Dr. Alanis. He stated that he feels that it is harder to breathe and he is been coughing with more brown sputum production along with occasional fevers. His infectious disease technician gave him azithromycin and prednisone to take should he develop dyspnea and cough, he has been taking this medication for 4 days. On 2L oxygen continuous and BiPAP at night. His was just diagnosed with bacterial pneumonia. Denies chest pain , palpitations, wheezing, abdominal pain, nausea, vomiting. He denies recent travel, trauma/falls, history of DVT or PE. CXR demonstrated COPD, no acute cardiopulmonary process. ABG: pH 7.15 CO2 123 O2 147 HCO3 43. He was placed on BiPAP. He is alongside his and daughter. He is alert and oriented x3 with full capacity and stated that he has living will and is DNR CCA. He is okay with short-term intubation but does not want long-term intubation should it be required. Past Med Surg Social Fam HX - Past Medical History Medical history: asthma, cancer (Testicular cancer), COPD, other Psychiatric history: anxiety - Past Surgical History Surgical History: other (Orchiectomy 2003) - Social History Smoking Status: Former smoker Smokeless Tobacco Status: No Alcohol use: recent Drug use: none - Family History Brother Hx Family Cancer: Yes (Bladder cancer) Internal Medicine - H&P: Meds ALPRAZolam [Xanax 0.5 MG Tablet] 0.5 mg PO BID 05/17/17 [History] Oxygen 2 l NS AD 05/17/17 [History] Albuterol Sulfate [Ventolin Hfa] 2 puff IH Q4H PRN 06/12/17 [History] Ipratropium/Albuterol Neb [Duoneb] 3 ml IH TID 06/12/17 [History] Azithromycin [Azithromycin] 250 mg PO DAILY 11/07/17 [History] Budesonide/Formoterol 160/4.5 [Symbicort 160/4.5] 2 puff IH BIDR 11/07/17 [ History] Ergocalciferol (VITAMIN D2) [Vitamin D2] 50,000 unit PO QWEEK 11/07/17 [History] Umeclidinium [place] [Incruse Ellipta] 62.5 mcg IH DAILY 11/07/17 [History] predniSONE [PredniSONE] 10 mg PO DAILY 11/07/17 [History] 3 Allergy/AdvReac Type Severity Reaction Status Date / Time Penicillins [PCN] Allergy Mild Hives Verified 05/17/17 12:00 All Systems PM: A 10-system review of systems was performed and is negative for pertinent findings except as documented above in the HPI. - Constitutional Constitutional: fever(s), no falls - Cardiovascular Cardiovascular ROS IM: no chest pain, no diaphoresis, no palpitations - Respiratory Respiratory: cough, dyspnea, excessive phlegm production, change in phlegm color , no hemoptysis, no wheezing, no pain on inspiration - Gastrointestinal Gastrointestinal: no abdominal pain, no nausea, no vomiting - Integumentary Integumentary IM: no erythema, no rash - Neurological Neurological ROS: no frequent falls - Constitutional Vitals: Temp Pulse Resp BP Pulse Ox 98.2 F 103 24 158/91 95 11/07/17 19:55 11/07/17 20:00 11/07/17 20:00 11/07/17 20:00 11/07/17 20:00 General appearance: Present: A&O X 3, pleasant, no acute distress, answers questions appropriately - Head Head exam: Present: atraumatic, normocephalic - Eye Eye exam: Present: normal appearance. Absent: scleral icterus - Respiratory Respiratory exam: Present: decreased breath sounds, CTAB. Absent: rales, rhonchi - Cardiovascular Cardiovascular exam: Present: RRR, +S1, +S2 - GI/Abdominal GI/Abdominal exam: Present: normal bowel sounds, soft. Absent: firm, guarding, tenderness - Extremities Exam Extremities exam: Present: normal inspection. Absent: tenderness - Neurological Exam Neurological exam: Present: alert, oriented X3. Absent: no focal deficits - Psychiatric Psychiatric exam: Present: normal affect, normal mood - Skin Skin exam: Present: dry, intact Internal Med - H&P Results - Labs CBC & Chem 7: 11/07/17 18:02 11/07/17 18:02 - ABG Interpretation ABG results: 11/07/17 20:28 ABG pH 7.26 L ABG pCO2 98 H* D ABG pO2 75 L D ABG HCO3 44 H ABG Total CO2 47 H ABG O2 Saturation 91 L ABG Base Excess 12 H <Roni Espinoza - Last Filed: 11/07/17 22:55> Date of Encounter: 11/07/17 Time of Encounter: 21:30 Internal Medicine - H&P: HPI History of present illness: Mr. Schmidt is a 66 year old male All Systems PM: A 10-system review of systems was performed and is negative for pertinent findings except as documented above in the HPI. - Constitutional Vitals: Temp Pulse Resp BP Pulse Ox 98.2 F 82 24 136/70 95 11/07/17 19:55 11/07/17 22:00 11/07/17 22:00 11/07/17 22:00 11/07/17 22:00 Internal Med - H&P Results - Labs CBC & Chem 7: 11/07/17 18:02 11/07/17 18:02 - ABG Interpretation ABG results: 11/07/17 20:28 ABG pH 7.26 L ABG pCO2 98 H* D ABG pO2 75 L D ABG HCO3 44 H ABG Total CO2 47 H ABG O2 Saturation 91 L ABG Base Excess 12 H - Attending Attestation I examined this patient and my medical decision-making was reviewed with the Resident Physician, Khushbu Mancini. I agree with the documented findings, disposition and treatment plan as described except to the extent set forth below. Patient with history of severe COPD and chronic respiratory failure on 2 L home oxygen presenting with shortness of breath and acute exacerbation of COPD. With severe hypoxic and hypercapnic respiratory failure. Requiring BiPAP use. Tolerating BiPAP well. History obtained through review of ED records given patient's current clinical condition. He is being evaluated for possible lung reduction surgery at [facility]. On examination has bilaterally diminished breath sounds. Normal heart sounds. S1-S2 normal. Appears underweight. And in severe distress. Chest x-ray does not show any infiltrate. Chronic COPD and interstitial changes noted. Acute on chronic hypoxic/hypercarbic respiratory failure: Continue BiPAP use. High risk for complications. CODE STATUS is DNR comfort care arrest however family willing to consider short-term intubation if needed. With acute on chronic respiratory acidosis with metabolic alkalosis. Acute exacerbation of COPD: Continue bronchodilator nebs, IV steroids and O2 supplementation. DVT prophylaxis with subcutaneous heparin
[2017-11-07] MEDS ORDERED: Levofloxacin 500 MG/100 ML 500 MG/100 ML BAG IVPB SCH (23:00)
[2017-11-07] MEDS: methylPREDNISolone 125 MG/2 ML VIAL IVP SCH (23:25)
[2017-11-07] MEDS: Ipratropium/Albuterol Neb 3 ML IH SCH (23:37)
[2017-11-07] MEDS: Budesonide/Formoterol 160/4.5 MDI IH SCH (23:37)
[2017-11-08] MEDS: 0.9 % Sodium Chloride 1,000 ML IVC SCH ×2 (01:12→15:02)
[2017-11-08] MEDS: Ipratropium/Albuterol Neb 3 ML IH SCH ×6 (03:47→23:02)
[2017-11-08 04:32] LABS: ABG Base Excess 14 mEq/L (-2 to 3); ABG HCO3 45 mEq/L (21-27); ABG Oxygen Saturation 91 % (95-98); ABG PCO2 93 mmHg (35-45); ABG PO2 72 mmHg (85-104); ABG TCO2 48 mEq/L (20-26)
[2017-11-08 04:36] LABS: Adenovirus Not Detected (Not Detect); Bordetella Pertussis Not Detected (Not Detect); Chlamydophila pneumoniae Not Detected (Not Detect); Coronavirus 229E Not Detected (Not Detect); Coronavirus HKU1 Not Detected (Not Detect); Coronavirus NL63 Not Detected (Not Detect); Coronavirus OC43 Not Detected (Not Detect); Human Metapneumovirus Not Detected (Not Detect); Human Rhinovirus/Enterovirus Not Detected (Not Detect); Influenza A Subtype 2009 H1 Not Detected (Not Detect); Influenza A Untypeable Not Detected (Not Detect); Influenza B Not Detected (Not Detect); Mycoplasma pneumoniae Not Detected (Not Detect); Parainfluenza Virus 1 Not Detected (Not Detect); Parainfluenza Virus 2 Not Detected (Not Detect); Parainfluenza Virus 3 Not Detected (Not Detect); Parainfluenza Virus 4 Not Detected (Not Detect); Respiratory Syncytial Virus Not Detected (Not Detect)
[2017-11-08] MEDS ORDERED: *HR* Heparin 5,000 UNIT/ML VIAL SQ SCH (06:00)
[2017-11-08] MEDS: methylPREDNISolone 125 MG/2 ML VIAL IVP SCH ×4 (06:08→23:03)
[2017-11-08 06:24] LABS: Basophils % 0.1 %; Hematocrit 37.7 % (37.5-50.1); Hemoglobin 12.2 g/dL (12.9-16.9); Immature Granulocytes % 0.5 % (0-4); Lymphocytes # 0.3 K/mcL (0.6-4.6); Lymphocytes % 2.7 %; Mean Corpuscular HGB Conc 32.4 g/dL (31.6-35.5); Mean Corpuscular Hemoglobin 30.6 pg (28.0-33.3); Mean Corpuscular Volume 94.5 fL (83.0-100.0); Mean Platelet Volume 9.1 fL (9.4-12.4); Monocytes # 0.6 K/mcL (0.0-1.3); Monocytes % 5.8 %; Neutrophils # 9.5 K/mcL (1.6-8.9); Platelet Count 270 K/mcL (140-400); Red Blood Count 3.99 M/mcL (4.19-5.50); Red Cell Distribution Width 12.6 % (11.5-14.5); Segmented Neutrophils % 90.9 %
[2017-11-08 06:43] LABS: BUN/Creatinine Ratio 31 (6-26); Blood Urea Nitrogen 11 mg/dL (8-23); Calcium 9.3 mg/dL (8.6-10.3); Carbon Dioxide 39 mEq/L (23-29); Chloride 89 mEq/L (98-107); Glucose 128 mg/dL (70-105); Osmolality,Calculated 277 (280-300); Potassium 4.9 mEq/L (3.5-5.1); Sodium 133 mEq/L (136-145); eGFR For African Americans > 60 (> 60); eGFR For Non-African Americans > 60 (> 60)
[2017-11-08] MEDS: Budesonide/Formoterol 160/4.5 MDI IH SCH ×2 (07:47→19:48)
[2017-11-08] MEDS: Levofloxacin 750 MG/150 ML 750 MG/150 ML BAG IVPB SCH (07:48)
[2017-11-08] MEDS: ALPRAZolam 0.5 MG TABLET PO SCH ×2 (07:48→20:00)
[2017-11-08] MEDS ORDERED: *HR* Heparin 5,000 UNIT/ML VIAL IVP ONE (09:02)
[2017-11-08] MEDS ORDERED: *HR* Heparin 5,000 UNIT/ML VIAL IVP PRN ×2 (09:02)
--- NOTE | 2017-11-08 09:13 | Internal Med Progress Note ---
Date of Encounter: 11/08/17 Time of Encounter: 09:05 - Subjective Interval history: HPI: 66 yr old man with h/o advanced COPD awaiting lung volume reduction surgery at [facility]. For 4 days he became increasingly dyspnic and was given Azithromycin and Prednisone as OP. His symptoms did not improve prompting his ER visit. Interval changes: Breathing more comfrtably on BIPAP RR still > 20 Troponins increased over night 0.04 --> 0.20 --> 0.22 Assessment and Plan COPD exacerbation Solumedrol, bronchodilators, empiric Levaquin, BiPAP. Consult Pulmonary Med. CXR:No acute pulmonary process Inf swab: Neg Acute and chronic respiratory failure Current visit: No Status: Acute Improved on BiPAP. ABG: pH 7.26 CO2 98 O2 75 HCO3 44 Initial ABG: pH 7.15 CO2 123 O2 147 HCO3 43. Elevated Troponins: Per pt no prior history of CAD Normal myocardial scan done at [facility] recently Telemetry show ST with nonspeific ST changes ECG pending Demand ischemia vs ACS Cardiology consulted - Constitutional Vitals: Temp Pulse Resp BP Pulse Ox 98.2 F 90 24 164/80 100 11/08/17 08:00 11/08/17 08:00 11/08/17 08:00 11/08/17 08:00 11/08/17 08:00 General appearance: Present: A&O X 3, pleasant, no acute distress, answers questions appropriately - Head Head exam: Present: atraumatic, normocephalic - Eye Eye exam: Present: PERRL, conjuntiva pink, sclera anicteric Pupils: Present: PERRL - Neck Neck exam general surgery: Present: supple, trachea midline. Absent: lymphadenopathy - Respiratory Respiratory exam: Present: accessory muscle use, rales, rhonchi, wheezes - Cardiovascular Cardiovascular exam: Present: +S1, +S2, tachycardia. Absent: diastolic murmur, gallop, rubs, systolic murmur - GI/Abdominal GI/Abdominal exam: Present: normal bowel sounds, soft, no peritoneal signs. Absent: distended, tenderness - Extremities Exam Extremities exam: Present: warm, radial pulses palpable and symmetrical. Absent : calf tenderness, cyanotic, pedal edema - Neurological Exam Neurological exam: Present: CN II-XII intact, oriented X3, no focal deficits. Absent: pronater drift, facial droop, speech deficit - Skin Skin exam: Present: dry, intact Internal Medicine: Result - Labs CBC & Chem 7: 11/08/17 09:15 11/08/17 06:07 Labs: Short CBC 11/08/17 Range/Units 06:07 WBC 10.4 (4.3-11.1) K/mcL Hgb 12.2 L (12.9-16.9) g/dL Hct 37.7 (37.5-50.1) % Plt Count 270 (140-400) K/mcL Neutrophils # 9.5 H (1.6-8.9) K/mcL BMP 11/08/17 06:07 Sodium 133 L Potassium 4.9 Chloride 89 L Carbon Dioxide 39 H BUN 11 Creatinine 0.35 L Glucose 128 H Calcium 9.3 Cardiac Enzymes 11/08/17 11/08/17 Range/Units 00:04 06:07 Troponin I 0.21 H* 0.22 H* (< 0.04) ng/mL - ABG Interpretation ABG results: ABG ABG pH 7.30 pH Units (7.32-7.45) L 11/08/17 04:27 ABG pCO2 93 mmHg (35-45) H* 11/08/17 04:27 ABG pO2 72 mmHg (85-104) L 11/08/17 04:27 ABG O2 Saturation 91 % (95-98) L 11/08/17 04:27 - Impressions Impressions Chest X-Ray 11/08/17 07:34 IMPRESSION: Stable chest. COPD. D/ / 11/08/2017 07:58:04 Elfego Hodges MD / [facility] Interpreting Provider: Elfego Hodges MD Consult Discharge Plan - Plan Referrals: Layton Box MD [Primary Care Provider] -
[2017-11-08] MEDS ORDERED: Heparin 25,000 UNIT/500 ML D5W 25,000 UNIT/500 ML BAG IVC SCH (09:15)
[2017-11-08 09:42] LABS: Hematocrit 38.8 % (37.5-50.1); Hemoglobin 12.5 g/dL (12.9-16.9); Mean Corpuscular HGB Conc 32.2 g/dL (31.6-35.5); Mean Corpuscular Hemoglobin 30.4 pg (28.0-33.3); Mean Corpuscular Volume 94.4 fL (83.0-100.0); Mean Platelet Volume 9.1 fL (9.4-12.4); Platelet Count 289 K/mcL (140-400); Red Blood Count 4.11 M/mcL (4.19-5.50); Red Cell Distribution Width 12.5 % (11.5-14.5)
[2017-11-08 09:49] LABS: INR 1.1; Prothrombin Time 11.7 Seconds (9.4-12.1)
[2017-11-08 09:52] LABS: Activated Partial Thrombo Time 32.5 Seconds (26.0-36.0)
[2017-11-08] MEDS: (Umeclidinium Bromide [Incruse Ellipta] 62.5 MCG) IH SCH (11:08)
--- NOTE | 2017-11-08 11:18 | Pulmonology Consult Note ---
<Luis Davis - Last Filed: 11/08/17 14:03> Date of Encounter: 11/08/17 Time of Encounter: 10:00 Assessment and Plan (1) Acute and chronic respiratory failure Current Visit: No Status: Acute Chronic baseline 2-2.5L O2 via NC with BiPap QHS. Secondary to acute exacerbation COPD Afebrile. Respiratory acidosis with metabolic compensation. Hypercapnia persists but is improving. Patient mentation is at baseline per . BiPap. Wean to NC as tolerated while awake Bronchodilators IV Solumedrol Follow with ABG Empiric antibiotic for exacerbation of severe COPD: Levaquin day 2 Microbiology: Respiratory Inf. Panel 11/07 (-) Qualifiers: Respiratory failure complication: hypoxia and hypercapnia Qualified Code(s) : J96.21 - Acute and chronic respiratory failure with hypoxia; J96.22 - Acute and chronic respiratory failure with hypercapnia; J96.22 - Acute and chronic respiratory failure with hypercapnia; J96.22 - Acute and chronic respiratory failure with hypercapnia (2) Acute exacerbation of chronic obstructive airways disease Current Visit: Yes Status: Acute Hx severe COPD with planned lung reduction surgery Plan as above (3) Elevated troponin Current Visit: Yes Status: Acute In the setting of acute on chronic respiratory failure. Echo 05/17/17: LVER 60-65%, normal LV anr RV size and function. Moderate pulmonary HTN. No significant valvular dysfunction. Nuclear stress test 05/18/17: LVEF 68%. Perfusion imaging negative for ischemia or infarct. No significant EKG changes during study. EKG on intake sinus tachycardia, baseline artifact, RBBB. No acute ischemic changes compared to previous dated 05/17/17. Clinically suspect demand ischemia. Will trend troponin. Aspirin therapy. Cardiology consulted by hospitalist. History of Present Illness Consult date: 11/08/17 Requesting physician: Capo Martínez Reason for consult: COPD Chief complaint: dyspnea History of present illness: Hospital day 2 Consult from hospitalist service re: acute exacerbation in COPD in patient with hx of severe COPD with pending lung reduction surgery via [facility] Dr. Alanis ( scheduled 02 December). Mr. Schmidt, a 66 year old male, prsented from home to the ED for evaluation of dyspnea. Onset 4 days prior to presentation. Hx severe COPD with recurrent COPD exacerbations, never required intubation. Patient states he completed his pre-surgical physical therapy however, once home, began to feel short of breath. This progressed and did not improve with BiPap, azithromycin, or prednisone. Past Med Surg Social Fam HX - Past Medical History Medical history: asthma, cancer (Testicular cancer), COPD, other Psychiatric history: anxiety - Past Surgical History Surgical History: other (Orchiectomy 2003) - Social History Smoking Status: Former smoker Smokeless Tobacco Status: No Alcohol use: recent Drug use: none - Family History Brother Hx Family Cancer: Yes (Bladder cancer) Medications and Allergies ALPRAZolam [Xanax 0.5 MG Tablet] 0.5 mg PO BID 05/17/17 [History] Oxygen 2 l NS AD 05/17/17 [History] Albuterol Sulfate [Ventolin Hfa] 2 puff IH Q4H PRN 06/12/17 [History] Ipratropium/Albuterol Neb [Duoneb] 3 ml IH TID 06/12/17 [History] Azithromycin [Azithromycin] 250 mg PO DAILY 11/07/17 [History] Budesonide/Formoterol 160/4.5 [Symbicort 160/4.5] 2 puff IH BIDR 11/07/17 [ History] Ergocalciferol (VITAMIN D2) [Vitamin D2] 50,000 unit PO QWEEK 11/07/17 [History] Umeclidinium [place] [Incruse Ellipta] 62.5 mcg IH DAILY 11/07/17 [History] predniSONE [PredniSONE] 10 mg PO DAILY 11/07/17 [History] 3 Allergy/AdvReac Type Severity Reaction Status Date / Time Penicillins [PCN] Allergy Mild Hives Verified 05/17/17 12:00 All Systems: The remainder of the systems were reviewed and are negative - Constitutional Constitutional: fatigue, no chills, no headache(s), no lethargy - EENT Nose, mouth and throat: no dry mouth, no dysphagia, no nasal congestion, no nasal discharge - Cardiovascular Cardiovascular: no chest pain - Respiratory Respiratory: cough, dyspnea, change in phlegm color, no hemoptysis, no pain with cough - Gastrointestinal Gastrointestinal: no abdominal pain, no cramping, no diarrhea, no hematochezia, no melena, no nausea, no vomiting - Genitourinary Genitourinary: no dysuria, no hematuria - Neurological Neurological: no abnormal movements, no abnormal speech, no confusion, no dizziness, no focal weakness, no headache(s), no syncope Physical Examination Vital Signs: Vital Signs, Last 4 Hours Temp Pulse Resp BP Pulse Ox 11/08/17 09:00 98 24 141/79 100 11/08/17 08:00 98.2 F 90 24 164/80 98 11/08/17 07:47 27 144/73 91 11/08/17 07:41 98.2 F General appearance: no acute distress, alert Eyes: nonicteric ENT: oropharynx moist Neck: supple Effort: mildly labored (baseline per patient and patient's ) Inspection: normal Auscultation: bilateral: diminished breath sounds, wheezes Cardiovascular: regular rate and rhythm Gastrointestinal: normoactive bowel sounds, soft, non-tender, non-distended, other (scaphoid abdomen) Integumentary: normal Extremities: no cyanosis, no edema, no clubbing, pink and warm, pulses normal, no ischemia or petechiae Musculoskeletal: no deformities normal mental status, non-focal exam, pupils equal and round, motor strength normal and symmetric mood appropriate Results - Laboratory Findings CBC and BMP: 11/08/17 09:15 11/08/17 06:07 ABG ABG pH 7.30 pH Units (7.32-7.45) L 11/08/17 04:27 ABG pCO2 93 mmHg (35-45) H* 11/08/17 04:27 ABG pO2 72 mmHg (85-104) L 11/08/17 04:27 ABG O2 Saturation 91 % (95-98) L 11/08/17 04:27 PT/INR, D-dimer PT 11.7 Seconds (9.4-12.1) 11/08/17 09:15 Abnormal lab findings: Abnormal lab results RBC 4.11 M/mcL (4.19-5.50) L 11/08/17 09:15 Hgb 12.5 g/dL (12.9-16.9) L 11/08/17 09:15 MPV 9.1 fL (9.4-12.4) L 11/08/17 09:15 Neutrophils # 9.5 K/mcL (1.6-8.9) H 11/08/17 06:07 Lymphocytes # 0.3 K/mcL (0.6-4.6) L 11/08/17 06:07 ABG pH 7.30 pH Units (7.32-7.45) L 11/08/17 04:27 ABG pCO2 93 mmHg (35-45) H* 11/08/17 04:27 ABG pO2 72 mmHg (85-104) L 11/08/17 04:27 ABG HCO3 45 mEq/L (21-27) H 11/08/17 04:27 ABG Total CO2 48 mEq/L (20-26) H 11/08/17 04:27 ABG O2 Saturation 91 % (95-98) L 11/08/17 04:27 ABG Base Excess 14 mEq/L (-2 to 3) H 11/08/17 04:27 Sodium 133 mEq/L (136-145) L 11/08/17 06:07 Chloride 89 mEq/L (98-107) L 11/08/17 06:07 Carbon Dioxide 39 mEq/L (23-29) H 11/08/17 06:07 Creatinine 0.35 mg/dL (0.70-1.30) L 11/08/17 06:07 BUN/Creatinine Ratio 31 (6-26) H 11/08/17 06:07 Glucose 128 mg/dL (70-105) H 11/08/17 06:07 POC Glucose 123 (58-89) H 11/07/17 20:01 Calculated Osmolality 277 (280-300) L 11/08/17 06:07 Troponin I 0.22 ng/mL (< 0.04) H* 11/08/17 06:07 B-Natriuretic Peptide 143 pg/mL (Less than 100) H 11/07/17 18:02 - Microbiology Findings Microbiology Findings: Microbiology, Last 48 Hours 11/08/17 03:30 Sputum Culture - Preliminary Sputum - Clinical Findings Intake & Output: Intake & Output 11/07/17 11/08/17 11/08/17 23:59 07:59 15:59 Intake Total 100 / 100 Output Total 1075 / 1075 Balance -975 / -975 Weight 61.5 kg 61.5 kg Consult Discharge Plan - Plan Referrals: Layton Box MD [Primary Care Provider] - <Teodora Flaherty - Last Filed: 11/08/17 22:35> Date of Encounter: 11/08/17 All Systems: The remainder of the systems were reviewed and are negative Physical Examination Vital Signs: Vital Signs, Last 4 Hours Temp Pulse Resp BP Pulse Ox 11/08/17 22:00 85 19 150/95 98 11/08/17 21:30 20 122/75 97 11/08/17 21:01 80 21 142/74 100 11/08/17 20:00 79 20 138/80 100 11/08/17 19:48 18 138/80 100 11/08/17 19:06 98.1 F 96 18 148/75 100 Results - Laboratory Findings CBC and BMP: 11/08/17 09:15 11/08/17 06:07 ABG ABG pH 7.32 pH Units (7.32-7.45) 11/08/17 15:41 ABG pCO2 84 mmHg (35-45) H* 11/08/17 15:41 ABG pO2 105 mmHg (85-104) H 11/08/17 15:41 ABG O2 Saturation 97 % (95-98) 11/08/17 15:41 PT/INR, D-dimer PT 11.7 Seconds (9.4-12.1) 11/08/17 09:15 Abnormal lab findings: Abnormal lab results RBC 4.11 M/mcL (4.19-5.50) L 11/08/17 09:15 Hgb 12.5 g/dL (12.9-16.9) L 11/08/17 09:15 MPV 9.1 fL (9.4-12.4) L 11/08/17 09:15 Neutrophils # 9.5 K/mcL (1.6-8.9) H 11/08/17 06:07 Lymphocytes # 0.3 K/mcL (0.6-4.6) L 11/08/17 06:07 ABG pCO2 84 mmHg (35-45) H* 11/08/17 15:41 ABG pO2 105 mmHg (85-104) H 11/08/17 15:41 ABG HCO3 43 mEq/L (21-27) H 11/08/17 15:41 ABG Total CO2 46 mEq/L (20-26) H 11/08/17 15:41 ABG Base Excess 13 mEq/L (-2 to 3) H 11/08/17 15:41 Sodium 133 mEq/L (136-145) L 11/08/17 06:07 Chloride 89 mEq/L (98-107) L 11/08/17 06:07 Carbon Dioxide 39 mEq/L (23-29) H 11/08/17 06:07 Creatinine 0.35 mg/dL (0.70-1.30) L 11/08/17 06:07 BUN/Creatinine Ratio 31 (6-26) H 11/08/17 06:07 Glucose 128 mg/dL (70-105) H 11/08/17 06:07 POC Glucose 123 (58-89) H 11/07/17 20:01 Calculated Osmolality 277 (280-300) L 11/08/17 06:07 Troponin I 0.14 ng/mL (< 0.04) H* 11/08/17 14:42 B-Natriuretic Peptide 143 pg/mL (Less than 100) H 11/07/17 18:02 - Microbiology Findings Microbiology Findings: Microbiology, Last 48 Hours 11/08/17 03:30 Sputum Culture - Preliminary Sputum - Clinical Findings Intake & Output: Intake & Output 11/08/17 11/08/17 11/08/17 07:59 15:59 23:59 Intake Total 100 / 100 1000 / 1000 175 / 175 Output Total 1075 / 1075 700 / 700 400 / 400 Balance -975 / -975 300 / 300 -225 / -225 Weight 61.5 kg - Attending Attestation I saw and evaluated this patient and my medical decision-making was reviewed with the Resident Physician. I agree with the documented findings, disposition and treatment plan as described except to the extent set forth below. We independently had [id number] contact with the patient I spent 32 minutes of Critical Care time with this patient. It involved decision making of high complexity to assess, manipulate, and support vital organ system failure and/or to prevent further life threatening deterioration of the patient's condition. The time involved in the performance of separately reportable procedures was not counted toward critical care time. Patient seen and examined at bedside Labs, radiology, chart personally reviewed. Management was reviewed during multidisciplinary critical care rounds. HORSE WRANGLER:Patient is conscious oriented follows commands Pulm:Patient presenting with acute on chronic hypercapnic respiratory failure due to COPD exacerbation to continue bronchodilators and steroids and antibiotics , respiratory viral panel negative . Patient has severe bullous emphysema disease awaiting for lung volume reduction surgery at [facility] Cards: Patient had a troponin leak which is trending down looks like supply demand mismatch cardiology was consulted by the hospitalist no evidence of obstructive CAD with recent stress test negative will do aspirin BB , will stop heparin drip FEN-GI:Clear liquid diet during BIPAP breaks Renal:Labs and output reviewed ID: To continue empiric antibiotics will descalate Heme/Onc:DVT prophylaxis Endo: Glucose Monitored Integ/MSK: Skin Care per routine ICU Nursing Protocol to prevent ulcers. Lines: All lines examined without evidence of infection : Dispo: Critically ill high risk for intubation CODE:DNRCCA -I
[2017-11-08 11:21] LABS: ABG Base Excess 14 mEq/L (-2 to 3); ABG HCO3 44 mEq/L (21-27); ABG Oxygen Saturation 98 % (95-98); ABG PCO2 84 mmHg (35-45); ABG PH 7.33 pH Units (7.32-7.45); ABG PO2 110 mmHg (85-104); ABG TCO2 47 mEq/L (20-26); Blood Gas Modality CPAP/PS; Blood Gas PEEP 7 cm H2O; Blood Gas Pressure Support 14 cm H2O
[2017-11-08] MEDS: Albuterol 2.5 MG/3 ML NEBULIZER IH PRN ×3 (13:48→21:30)
--- NOTE | 2017-11-08 14:16 | Cardiology Consult Note ---
Date of Encounter: 11/08/17 Time of Encounter: 13:00 Assessment and Plan (1) Elevated troponin Current Visit: Yes Status: Acute Patient presents with acute respiratory failure thought secondary to known severe COPD. Incidentally discovered were elevated troponins now at 0.22. Recommend continue to trend until there is a decline in troponins. Patient without chest pain and ECG without ischemic findings. Also with recent stress test at [facility] that was negative for ischemia or infarct. Normal LVEF by gated stress testing and echo recently. Suspect findings represent demand ischemia in setting of acute respiratory distress and marked elevation of BP (202/92 mmHg ). Recommend repeat Limited echo for review of LV function and wall motion to help guide management. Patient on heparin gtt. Asa added. Lipids ordered. Findings, hospital course and recommendations were discussed with the patient, and daughter in great detail. I have called [facility] ([phone]) pulmonary surgical team at family request. Awaiting a call back. Discussion w patient/family: The assessment and plan as outlined above was discussed with the patient and/or family members who expressed understanding and agreement. All questions were answered. Thank you for involving us in the care of your patient. Please call with any questions. History of Present Illness Consult date: 11/08/17 Requesting physician: Capo Martínez Consult reason: Elevated troponin Chief complaint: SOB History of present illness: Mr. Schmidt is a 66 year old male presenting with worsening shortness of breath over the past few days. Patient with known severe COPD planning on lung reduction surgery later this month at [facility]. Apparently was given Azithromycin and prednisone as outpatient for treatment but symptoms worsened. Workup has demonstrated normalization of leukocytosis. Patient afebrile. Troponin elevated, now 0.22. Presenting ECG limited somewhat by artifact but no obvious ischemic findings, sinus tachycardia. ECG done today demonstrates NSR without ischemic findings. Patient denies having chest pain or palpitations. Past Med Surg Social Fam HX - Past Medical History Attestation: Yes The following information was validated with the patient. Medical history: asthma, cancer (Testicular cancer), COPD, other Psychiatric history: anxiety - Past Surgical History Surgical History: other (Orchiectomy 2003) - Social History Smoking Status: Former smoker Smokeless Tobacco Status: No Alcohol use: recent Drug use: none - Family History Brother Hx Family Cancer: Yes (Bladder cancer) Medications and Allergies ALPRAZolam [Xanax 0.5 MG Tablet] 0.5 mg PO BID 05/17/17 [History] Oxygen 2 l NS AD 05/17/17 [History] Albuterol Sulfate [Ventolin Hfa] 2 puff IH Q4H PRN 06/12/17 [History] Ipratropium/Albuterol Neb [Duoneb] 3 ml IH TID 06/12/17 [History] Azithromycin [Azithromycin] 250 mg PO DAILY 11/07/17 [History] Budesonide/Formoterol 160/4.5 [Symbicort 160/4.5] 2 puff IH BIDR 11/07/17 [ History] Ergocalciferol (VITAMIN D2) [Vitamin D2] 50,000 unit PO QWEEK 11/07/17 [History] Umeclidinium [place] [Incruse Ellipta] 62.5 mcg IH DAILY 11/07/17 [History] predniSONE [PredniSONE] 10 mg PO DAILY 11/07/17 [History] 3 Allergy/AdvReac Type Severity Reaction Status Date / Time Penicillins [PCN] Allergy Mild Hives Verified 05/17/17 12:00 All Systems Review: The remainder of the systems were reviewed and are negative except as described in HPI. - Cardiovascular Cardiovascular: as per HPI Physical Examination Vital Signs, Last 4 Hours Temp Pulse Resp BP Pulse Ox 11/08/17 13:50 14 100 11/08/17 11:53 98.8 F 11/08/17 11:20 28 144/80 100 11/08/17 11:00 88 34 146/77 100 General: Conversant, No Apparent Distress, Other (resting comfortably on BIPAP) HEENT: Atraumatic, Other (mucus membranes not well assessed - BIPAP in place) Neck: No JVD Cardiac: Reg Rate and Rhythm, Normal S1 and S2, No Murmur Lungs: Other (Decreased air entry bilaterally, no rales wheeze or rhonchi) Neuro: Alert and responsive, No focal deficits noted Abdomen: Soft, Non-Tender, Other (bowel sounds present) Extremities: No Edema, Normal Pulses Results 11/08/17 09:15 11/08/17 06:07 Lab Results 11/08/17 11/08/17 11/08/17 00:04 06:07 06:07 WBC 10.4 Hgb 12.2 L Hct 37.7 Plt Count 270 INR APTT Sodium Potassium Chloride Carbon Dioxide BUN Creatinine Glucose Calcium Troponin I 0.21 H* 0.22 H* 11/08/17 11/08/17 11/08/17 06:07 09:15 09:15 WBC 10.3 Hgb 12.5 L Hct 38.8 Plt Count 289 INR 1.1 APTT 32.5 Sodium 133 L Potassium 4.9 Chloride 89 L Carbon Dioxide 39 H BUN 11 Creatinine 0.35 L Glucose 128 H Calcium 9.3 Troponin I - Imaging and Cardiology Chest Xray: report reviewed Stress Test: report reviewed (recent stress test at [facility] reviewed (brought in by family) - normal gated EF, no ischemia, no prior infarct) Echo: report reviewed (Recent Echo at [facility] reviewed - normal LVEF, normal RV function, no valvular dysfunction) - EKG Interpretation EKG results cardiology: personally reviewed (Presenting ECG somewhat limited by artifact, no obvious ischemic findings. Today's ECG demonstrates NSR, no ischemic findings) Consult Discharge Plan - Plan Referrals: Layton Box MD [Primary Care Provider] -
[2017-11-08 15:46] LABS: ABG Base Excess 13 mEq/L (-2 to 3); ABG HCO3 43 mEq/L (21-27); ABG Oxygen Saturation 97 % (95-98); ABG PCO2 84 mmHg (35-45); ABG PH 7.32 pH Units (7.32-7.45); ABG PO2 105 mmHg (85-104); ABG TCO2 46 mEq/L (20-26); Blood Gas Modality CPAP/PS; Blood Gas PEEP 7 cm H2O; Blood Gas Pressure Support 14 cm H2O
[2017-11-08] MEDS ORDERED: Acetaminophen 325 MG TABLET PO PRN (17:30)
[2017-11-08] MEDS: Famotidine 20 MG/2 ML VIAL IVP SCH (17:32)
--- NOTE | 2017-11-08 18:11 | Event Note ---
Date of Encounter: 11/08/17 Time of Encounter: 16:00 - Cardiology Event Note Spoke with Dr. Alanis from [facility] regarding patient's case at family request and concern for upcoming procedure. Updated Dr. Alanis about patient presentation and hospital course. Spoke in detail about troponin elevation appearing secondary to demand ischemia. Discussed recent negative stress test. Patient without chest pain symptoms or acute ECG findings. I recommended we obtain limited echo for re-evaluation of LV systolic function and wall motion. Provided there are no new changes, further cardiac testing does not appear warranted. Dr. Alanis expressed agreement with the plan. Updated family at the bedside about our conversation. All questions from family were answered.
--- NOTE | 2017-11-08 19:33 | Electrocardiograph Report ---
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
[2017-11-08] MEDS: *HR* Heparin 5,000 UNIT/ML VIAL SQ SCH (21:02)
--- NOTE | 2017-11-08 21:05 | Electrocardiograph Report ---
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
[2017-11-09] MEDS: 0.9 % Sodium Chloride 1,000 ML IVC SCH (03:19)
[2017-11-09] MEDS: Ipratropium/Albuterol Neb 3 ML IH SCH ×6 (03:52→23:05)
[2017-11-09] MEDS: *HR* Heparin 5,000 UNIT/ML VIAL SQ SCH ×3 (05:00→20:13)
[2017-11-09] MEDS: Famotidine 20 MG/2 ML VIAL IVP SCH ×2 (05:00→18:11)
[2017-11-09] MEDS: methylPREDNISolone 125 MG/2 ML VIAL IVP SCH ×4 (05:00→23:57)
[2017-11-09 05:22] LABS: Chol/HDL Ratio 2.1 (0-4.9); Cholesterol 197 mg/dL (< 200); HDL Cholesterol 96 mg/dL (40-59); LDL Cholesterol,Calculated 88 mg/dL (0-99); Triglycerides 65 mg/dL (< 150)
[2017-11-09 07:32] LABS: Basophils % 0.1 %; Hematocrit 39.3 % (37.5-50.1); Hemoglobin 12.4 g/dL (12.9-16.9); Immature Granulocytes % 0.4 % (0-4); Lymphocytes # 0.4 K/mcL (0.6-4.6); Lymphocytes % 2.4 %; Mean Corpuscular HGB Conc 31.6 g/dL (31.6-35.5); Mean Corpuscular Hemoglobin 30.2 pg (28.0-33.3); Mean Corpuscular Volume 95.9 fL (83.0-100.0); Mean Platelet Volume 9.7 fL (9.4-12.4); Neutrophils # 14.9 K/mcL (1.6-8.9); Platelet Count 321 K/mcL (140-400); Red Cell Distribution Width 12.5 % (11.5-14.5); Segmented Neutrophils % 91.1 %
[2017-11-09 07:42] LABS: BUN/Creatinine Ratio 23 (6-26); Blood Urea Nitrogen 11 mg/dL (8-23); Calcium 9.3 mg/dL (8.6-10.3); Carbon Dioxide 35 mEq/L (23-29); Chloride 90 mEq/L (98-107); Glucose 171 mg/dL (70-105); Osmolality,Calculated 279 (280-300); Potassium 4.5 mEq/L (3.5-5.1); Sodium 133 mEq/L (136-145); eGFR For African Americans > 60 (> 60); eGFR For Non-African Americans > 60 (> 60)
[2017-11-09] MEDS: Budesonide/Formoterol 160/4.5 MDI IH SCH ×2 (07:45→19:43)
[2017-11-09] MEDS: ALPRAZolam 0.5 MG TABLET PO SCH ×2 (08:09→20:13)
[2017-11-09] MEDS: (Umeclidinium Bromide [Incruse Ellipta] 62.5 MCG) IH SCH (08:10)
[2017-11-09] MEDS: Levofloxacin 750 MG/150 ML 750 MG/150 ML BAG IVPB SCH (08:10)
--- NOTE | 2017-11-09 08:17 | Internal Med Progress Note ---
Date of Encounter: 11/09/17 Time of Encounter: 08:15 - Subjective Interval history: HPI: 66 yr old man with h/o advanced COPD awaiting lung volume reduction surgery at [facility]. For 4 days he became increasingly dyspnic and was given Azithromycin and Prednisone as OP. His symptoms did not improve prompting his ER visit. Interval changes: 11/08/17: Breathing more comfrtably on BIPAP RR still > 20 Troponins increased over night 0.04 --> 0.20 --> 0.22 11/09/17: Breathing comfortably on NC 2L/min. (At home he uses 2?/min) Diet advanced No chest pain. No new complaints Assessment and Plan COPD exacerbation Solumedrol, bronchodilators, empiric Levaquin BiPAP --> HF-NC over night and NC 4l/min this am breathing more comfortably. Appreciate Pulmonary Med. assistance CXR:No acute pulmonary process Inf swab: Neg Acute and chronic respiratory failure Current visit: No Status: Acute Improved on BiPAP. ABG: pH 7.26 CO2 98 O2 75 HCO3 44 Initial ABG: pH 7.15 CO2 123 O2 147 HCO3 43. Elevated Troponins: Per pt no prior history of CAD Normal myocardial scan done at [facility] recently Telemetry show ST with nonspeific ST changes ECG pending Demand ischemia vs ACS Cardiology consulted - Constitutional Vitals: Temp Pulse Resp BP Pulse Ox 97.9 F 89 18 136/68 96 11/09/17 07:26 11/09/17 06:01 11/09/17 07:45 11/09/17 06:01 11/09/17 07:45 General appearance: Present: A&O X 3, pleasant, no acute distress, answers questions appropriately - Head Head exam: Present: atraumatic, normocephalic - Eye Eye exam: Present: PERRL, conjuntiva pink, sclera anicteric Pupils: Present: PERRL - Neck Neck exam general surgery: Present: supple, trachea midline. Absent: lymphadenopathy - Respiratory Respiratory exam: Present: CTAB. Absent: accessory muscle use, rales, rhonchi, wheezes - Cardiovascular Cardiovascular exam: Present: RRR, +S1, +S2. Absent: diastolic murmur, gallop, rubs, systolic murmur - GI/Abdominal GI/Abdominal exam: Present: normal bowel sounds, soft, no peritoneal signs. Absent: distended, tenderness - Extremities Exam Extremities exam: Present: warm, radial pulses palpable and symmetrical. Absent : calf tenderness, cyanotic, pedal edema - Neurological Exam Neurological exam: Present: CN II-XII intact, oriented X3, no focal deficits. Absent: pronater drift, facial droop, speech deficit - Psychiatric Psychiatric exam: Present: normal affect, normal mood - Skin Skin exam: Present: dry, intact Internal Medicine: Result - Labs CBC & Chem 7: 11/09/17 04:52 11/09/17 04:52 Labs: Short CBC 11/08/17 11/09/17 Range/Units 09:15 04:52 WBC 10.3 16.4 H D (4.3-11.1) K/mcL Hgb 12.5 L 12.4 L (12.9-16.9) g/dL Hct 38.8 39.3 (37.5-50.1) % Plt Count 289 321 (140-400) K/mcL Neutrophils # 14.9 H (1.6-8.9) K/mcL BMP 11/09/17 04:52 Sodium 133 L Potassium 4.5 Chloride 90 L Carbon Dioxide 35 H BUN 11 Creatinine 0.47 L Glucose 171 H Calcium 9.3 Cardiac Enzymes 11/08/17 Range/Units 14:42 Troponin I 0.14 H* (< 0.04) ng/mL - ABG Interpretation ABG results: ABG ABG pH 7.32 pH Units (7.32-7.45) 11/08/17 15:41 ABG pCO2 84 mmHg (35-45) H* 11/08/17 15:41 ABG pO2 105 mmHg (85-104) H 11/08/17 15:41 ABG O2 Saturation 97 % (95-98) 11/08/17 15:41 PT/INR, D-dimer PT 11.7 Seconds (9.4-12.1) 11/08/17 09:15 - VTE Documentation of Mechanical Device: Intermittent pneumatic compression device Consult Discharge Plan - Plan Referrals: Layton Box MD [Primary Care Provider] -
[2017-11-09] MEDS ORDERED: Aspirin 81 MG TAB.CHEW PO SCH (09:00)
--- NOTE | 2017-11-09 12:24 | Pulmonology Progress Note ---
<Luis Davis - Last Filed: 11/09/17 12:57> Date of Encounter: 11/09/17 Time of Encounter: 08:30 Assessment and Plan (1) Acute and chronic respiratory failure Current Visit: No Status: Acute Chronic baseline 2-2.5L O2 via NC with BiPap QHS. Secondary to acute exacerbation COPD Afebrile. Respiratory acidosis with metabolic compensation. Hypercapnia persists but is improving. Patient mentation is at baseline per . Supplemental oxygen: NC while awake, wean to baseline 2-2.5L. BiPap as needed while awake. BiPap continuous at night (his baseline). Pulmonary support: Bronchodilators IV Solumedrol Follow with ABG Empiric antibiotic for exacerbation of severe COPD: Levaquin day 2 Microbiology: Respiratory Inf. Panel 11/07 (-) Plan to transfer to step-down unit today. Qualifiers: Respiratory failure complication: hypoxia and hypercapnia Qualified Code(s) : J96.21 - Acute and chronic respiratory failure with hypoxia; J96.22 - Acute and chronic respiratory failure with hypercapnia; J96.22 - Acute and chronic respiratory failure with hypercapnia; J96.22 - Acute and chronic respiratory failure with hypercapnia (2) Acute exacerbation of chronic obstructive airways disease Current Visit: Yes Status: Acute history of severe COPD. Plan as above (3) Elevated troponin Current Visit: Yes Status: Acute In the setting of acute on chronic respiratory failure. Echo 05/17/17: LVER 60-65%, normal LV anr RV size and function. Moderate pulmonary HTN. No significant valvular dysfunction. Nuclear stress test 05/18/17: LVEF 68%. Perfusion imaging negative for ischemia or infarct. No significant EKG changes during study. EKG on intake sinus tachycardia, baseline artifact, RBBB. No acute ischemic changes compared to previous dated 05/17/17. Clinically suspect demand ischemia. Troponin trended down. Aspirin therapy. Cardiology consulted. Subjective Interval history: Consult from hospitalist service re: acute exacerbation in COPD in patient with hx of severe COPD with pending lung reduction surgery via [facility] Dr. Alanis ( scheduled 02 December). Mr. Schmidt, a 66 year old male, prsented from home to the ED for evaluation of dyspnea. Onset 4 days prior to presentation. Hx severe COPD with recurrent COPD exacerbations, never required intubation. Patient states he completed his pre-surgical physical therapy however, once home, began to feel short of breath. This progressed and did not improve with BiPap, azithromycin, or prednisone. Hospital day 3 No acute events overnight. Patient now on NC during the day at 4L; improved from 10L yesterday. BiPap now intermittent during the day. BiPap continuous at night (his baseline). He continues to improve. Plan on transfer to [facility] today. Objective PUL Vital signs: Last Vital Signs Temp 98.1 F 11/09/17 11:56 Pulse 92 11/09/17 10:00 Resp 18 11/09/17 11:43 BP 145/73 11/09/17 10:00 Pulse Ox 93 11/09/17 11:43 General appearance: no acute distress, alert Eyes: nonicteric ENT: oropharynx moist Neck: supple Effort: mildly labored (patient's baseline) Auscultation: bilateral: diminished breath sounds, wheezes (faint, bilateral posterior bases.) Cardiovascular: regular rate and rhythm Gastrointestinal: normoactive bowel sounds, soft, non-tender, non-distended, other (scaphoid abdomen) Integumentary: normal Extremities: no cyanosis, no edema, no clubbing, pink and warm, pulses normal, no ischemia or petechiae Musculoskeletal: no deformities normal mental status, non-focal exam, pupils equal and round, motor strength normal and symmetric mood appropriate Results - Laboratory Findings CBC and BMP: 11/09/17 04:52 11/09/17 04:52 ABG ABG pH 7.32 pH Units (7.32-7.45) 11/08/17 15:41 ABG pCO2 84 mmHg (35-45) H* 11/08/17 15:41 ABG pO2 105 mmHg (85-104) H 11/08/17 15:41 ABG O2 Saturation 97 % (95-98) 11/08/17 15:41 PT/INR, D-dimer PT 11.7 Seconds (9.4-12.1) 11/08/17 09:15 Abnormal lab findings: Abnormal lab results WBC 16.4 K/mcL (4.3-11.1) H D 11/09/17 04:52 RBC 4.10 M/mcL (4.19-5.50) L 11/09/17 04:52 Hgb 12.4 g/dL (12.9-16.9) L 11/09/17 04:52 Neutrophils # 14.9 K/mcL (1.6-8.9) H 11/09/17 04:52 Lymphocytes # 0.4 K/mcL (0.6-4.6) L 11/09/17 04:52 ABG pCO2 84 mmHg (35-45) H* 11/08/17 15:41 ABG pO2 105 mmHg (85-104) H 11/08/17 15:41 ABG HCO3 43 mEq/L (21-27) H 11/08/17 15:41 ABG Total CO2 46 mEq/L (20-26) H 11/08/17 15:41 ABG Base Excess 13 mEq/L (-2 to 3) H 11/08/17 15:41 Sodium 133 mEq/L (136-145) L 11/09/17 04:52 Chloride 90 mEq/L (98-107) L 11/09/17 04:52 Carbon Dioxide 35 mEq/L (23-29) H 11/09/17 04:52 Creatinine 0.47 mg/dL (0.70-1.30) L 11/09/17 04:52 Glucose 171 mg/dL (70-105) H 11/09/17 04:52 POC Glucose 123 (58-89) H 11/07/17 20:01 Calculated Osmolality 279 (280-300) L 11/09/17 04:52 Troponin I 0.14 ng/mL (< 0.04) H* 11/08/17 14:42 B-Natriuretic Peptide 143 pg/mL (Less than 100) H 11/07/17 18:02 HDL Cholesterol 96 mg/dL (40-59) H 11/09/17 04:52 - Microbiology Findings Microbiology Findings: Microbiology, Last 48 Hours 11/08/17 03:30 Sputum Culture - Preliminary Sputum - Clinical Findings Intake & Output: Intake & Output 11/08/17 11/09/17 11/09/17 23:59 07:59 15:59 Intake Total 275 / 275 1000 / 1000 Output Total 1000 / 1000 1000 / 1000 400 / 400 Balance -725 / -725 0 / 0 -400 / -400 Weight 60.9 kg - VTE Documentation of Mechanical Device: Intermittent pneumatic compression device Consult Discharge Plan - Plan Referrals: Layton Box MD [Primary Care Provider] - <Teodora Flaherty S - Last Filed: 11/09/17 22:50> Date of Encounter: 11/09/17 Objective PUL Vital signs: Last Vital Signs Temp 98.0 F 11/09/17 21:19 Pulse 94 11/09/17 20:21 Resp 19 11/09/17 20:54 BP 154/83 11/09/17 20:54 Pulse Ox 95 11/09/17 20:54 Results - Laboratory Findings CBC and BMP: 11/09/17 04:52 11/09/17 04:52 ABG ABG pH 7.32 pH Units (7.32-7.45) 11/08/17 15:41 ABG pCO2 84 mmHg (35-45) H* 11/08/17 15:41 ABG pO2 105 mmHg (85-104) H 11/08/17 15:41 ABG O2 Saturation 97 % (95-98) 11/08/17 15:41 PT/INR, D-dimer PT 11.7 Seconds (9.4-12.1) 11/08/17 09:15 Abnormal lab findings: Abnormal lab results WBC 16.4 K/mcL (4.3-11.1) H D 11/09/17 04:52 RBC 4.10 M/mcL (4.19-5.50) L 11/09/17 04:52 Hgb 12.4 g/dL (12.9-16.9) L 11/09/17 04:52 Neutrophils # 14.9 K/mcL (1.6-8.9) H 11/09/17 04:52 Lymphocytes # 0.4 K/mcL (0.6-4.6) L 11/09/17 04:52 ABG pCO2 84 mmHg (35-45) H* 11/08/17 15:41 ABG pO2 105 mmHg (85-104) H 11/08/17 15:41 ABG HCO3 43 mEq/L (21-27) H 11/08/17 15:41 ABG Total CO2 46 mEq/L (20-26) H 11/08/17 15:41 ABG Base Excess 13 mEq/L (-2 to 3) H 11/08/17 15:41 Sodium 133 mEq/L (136-145) L 11/09/17 04:52 Chloride 90 mEq/L (98-107) L 11/09/17 04:52 Carbon Dioxide 35 mEq/L (23-29) H 11/09/17 04:52 Creatinine 0.47 mg/dL (0.70-1.30) L 11/09/17 04:52 Glucose 171 mg/dL (70-105) H 11/09/17 04:52 POC Glucose 123 (58-89) H 11/07/17 20:01 Calculated Osmolality 279 (280-300) L 11/09/17 04:52 Troponin I 0.14 ng/mL (< 0.04) H* 11/08/17 14:42 B-Natriuretic Peptide 143 pg/mL (Less than 100) H 11/07/17 18:02 HDL Cholesterol 96 mg/dL (40-59) H 11/09/17 04:52 - Microbiology Findings Microbiology Findings: Microbiology, Last 48 Hours 11/08/17 03:30 Sputum Culture - Preliminary Sputum - Clinical Findings Intake & Output: Intake & Output 11/09/17 11/09/17 11/09/17 07:59 15:59 23:59 Intake Total 1000 / 1000 240 / 240 Output Total 1000 / 1000 400 / 400 475 / 475 Balance 0 / 0 -400 / -400 -235 / -235 - Attending Attestation - Attending Attestation I saw and evaluated this patient and my medical decision-making was reviewed with the Resident Physician. I agree with the documented findings, disposition and treatment plan as described except to the extent set forth below. We independently had [id number] contact with the patient Patient seen and examined at bedside Labs, radiology, chart personally reviewed. Management was reviewed during multidisciplinary critical care rounds. DISPOSAL WORKER:Patient is conscious oriented follows commands Pulm:Patient presenting with acute on chronic hypercapnic respiratory failure due to COPD exacerbation to continue bronchodilators and steroids and antibiotics , respiratory viral panel negative . Patient has severe bullous emphysema disease awaiting for lung volume reduction surgery at [facility] 11/09 Patient is off the BIPAP tolerating well counseled the patient to go on BIPAP prn but continuous during night . Cards: Patient had a troponin leak which is trending down looks like supply demand mismatch cardiology was consulted by the hospitalist no evidence of obstructive CAD with recent stress test negative will do aspirin BB , will stop heparin drip No evidence of NSTEMI , ECHO showed no wall motion abnormalities with preserved EF FEN-GI:Clear liquid diet during BIPAP breaks but advance diet as tolerated Renal:Labs and output reviewed ID: To continue empiric antibiotics will descalate Heme/Onc:DVT prophylaxis Endo: Glucose Monitored Integ/MSK: Skin Care per routine ICU Nursing Protocol to prevent ulcers. Lines: All lines examined without evidence of infection : Dispo: Can be transferred to step down today CODE:[id number] -[id number]
--- NOTE | 2017-11-09 13:38 | Cardiology Progress Note ---
Date of Encounter: 11/09/17 Time of Encounter: 13:30 Assessment and Plan (1) Elevated troponin Current Visit: Yes Status: Acute Patient presents with acute respiratory failure thought secondary to known severe COPD. Incidentally discovered were elevated troponins now at 0.22. Recommend continue to trend until there is a decline in troponins. Patient without chest pain and ECG without ischemic findings. Also with recent stress test at [facility] that was negative for ischemia or infarct. Normal LVEF by gated stress testing and echo recently. Suspect findings represent demand ischemia in setting of acute respiratory distress and marked elevation of BP (202/92 mmHg ). Recommend repeat Limited echo for review of LV function and wall motion to help guide management. Patient on heparin gtt. Asa added. Lipids ordered. 11/09/17: See event note from Dr. Sheppard--spoke with surgeon at [facility] (Dr. Alanis) who recommended limited TTE. TTE demonstrated preserved LVEF with normal wall motion. No further Cardiac testing recommended. Cardiology will sign-off. Discussion w patient/family: The assessment and plan as outlined above was discussed with the patient and/or family members who expressed understanding and agreement. All questions were answered. Thank you for involving us in the care of your patient. Please call with any questions. The patient will be discussed and reviewed with Dr. Rick Pickering; Cardiology will sign-off. Subjective Principal diagnosis: COPD exacerbation Interval history: Seen and examined. No new symptoms overnight. Objective Vital Signs, Last 4 Hours Temp Pulse Resp BP Pulse Ox 11/09/17 12:00 112 18 138/88 93 11/09/17 11:56 98.1 F 11/09/17 11:43 18 93 11/09/17 10:00 92 18 145/73 99 General: Conversant, No Apparent Distress HEENT: Atraumatic, Normocephaly, Mucus Membranes Moist Cardiac: Reg Rate and Rhythm (tachycardia) Lungs: Other (Decreased) Neuro: Alert and responsive Abdomen: Soft Skin: No rashes noted on visualized skin Musculoskeletal: No Chest Wall Tenderness Extremities: No Edema, Normal Pulses Results 11/09/17 04:52 11/09/17 04:52 Lab Results 11/08/17 11/09/17 11/09/17 14:42 04:52 04:52 WBC 16.4 H D Hgb 12.4 L Hct 39.3 Plt Count 321 Sodium 133 L Potassium 4.5 Chloride 90 L Carbon Dioxide 35 H BUN 11 Creatinine 0.47 L Glucose 171 H Calcium 9.3 Troponin I 0.14 H* Active Medications Acetaminophen (Tylenol) 650 mg PO Q6HR PRN PRN Reason: Fever Stop: 05/10/18 17:31 Last Admin: 11/08/17 18:11 Dose: 650 mg Albuterol Sulfate (Proventil Neb) 2.5 mg IH Q2H PRN; Protocol PRN Reason: Shortness Of Breath/Wheezing Stop: 05/10/18 11:18 Last Admin: 11/08/17 21:30 Dose: 2.5 mg Albuterol/Ipratropium (Duoneb) 3 ml IH [id number] AYE PRN Reason: Protocol Stop: 05/10/18 00:01 Last Admin: 11/09/17 11:43 Dose: 3 ml Alprazolam (Xanax) 0.5 mg PO BID AYE PRN Reason: Protocol Stop: 05/09/18 21:01 Last Admin: 11/09/17 08:09 Dose: 0.5 mg Aspirin (Aspirin) 81 mg PO DAILY [facility] Stop: 05/11/18 09:01 Last Admin: 11/09/17 08:09 Dose: 81 mg Budesonide/Formoterol Fumarate (Symbicort) 2 puff IH BIDR AYE PRN Reason: Protocol Stop: 05/09/18 22:01 Last Admin: 11/09/17 07:45 Dose: 2 puff Famotidine (Pepcid) 20 mg IVP Q12HR AYE PRN Reason: Protocol Stop: 05/10/18 18:01 Last Admin: 11/09/17 05:00 Dose: 20 mg Heparin Sodium (Porcine) (Heparin) 5,000 unit SQ Q8HCO [facility] Stop: 05/10/18 22:01 Last Admin: 11/09/17 05:00 Dose: 5,000 unit Levofloxacin/Dextrose (Levaquin Premix 750mg/150 Ml) 750 mg in 150 mls @ 100 mls/hr IVPB DAILY [facility] PRN Reason: Protocol Stop: 05/10/18 09:01 Last Admin: 11/09/17 08:10 Dose: 100 mls/hr Methylprednisolone (Solu-Medrol) 60 mg IVP Q6HR [facility] Stop: 05/10/18 00:01 Last Admin: 11/09/17 05:00 Dose: 60 mg Naloxone HCl (Narcan) 0.4 mg IVP Q2MIN PRN PRN Reason: SEE COMMENTS Stop: 05/09/18 20:07 - Imaging and Cardiology Other Results: 12 hour tele: avg HR=93 SR. - EKG Interpretation EKG results cardiology: personally reviewed - VTE Documentation of Mechanical Device: Intermittent pneumatic compression device Consult Discharge Plan - Plan Referrals: Layton Box MD [Primary Care Provider] -
[2017-11-09] MEDS ORDERED: Albuterol 2.5 MG/3 ML NEBULIZER IH PRN (14:17)
[2017-11-09] MEDS ORDERED: Naloxone 0.4 MG/ML INJ IVP PRN (14:17)
[2017-11-09] MEDS: Acetaminophen 325 MG TABLET PO PRN (18:12)
[2017-11-10] MEDS: Ipratropium/Albuterol Neb 3 ML IH SCH ×5 (03:06→20:18)
[2017-11-10] MEDS: Famotidine 20 MG/2 ML VIAL IVP SCH ×2 (05:39→17:19)
[2017-11-10] MEDS: methylPREDNISolone 125 MG/2 ML VIAL IVP SCH (05:39)
[2017-11-10] MEDS: *HR* Heparin 5,000 UNIT/ML VIAL SQ SCH ×3 (05:40→20:22)
[2017-11-10] MEDS: Acetaminophen 325 MG TABLET PO PRN ×2 (06:23→15:03)
[2017-11-10 07:34] LABS: Basophils % 0.1 %; Hematocrit 40.3 % (37.5-50.1); Hemoglobin 12.5 g/dL (12.9-16.9); Immature Granulocytes % 0.5 % (0-4); Lymphocytes # 0.4 K/mcL (0.6-4.6); Lymphocytes % 2.1 %; Mean Corpuscular Hemoglobin 29.7 pg (28.0-33.3); Mean Corpuscular Volume 95.7 fL (83.0-100.0); Mean Platelet Volume 9.4 fL (9.4-12.4); Monocytes # 0.7 K/mcL (0.0-1.3); Monocytes % 3.8 %; Neutrophils # 17.2 K/mcL (1.6-8.9); Platelet Count 255 K/mcL (140-400); Red Blood Count 4.21 M/mcL (4.19-5.50); Red Cell Distribution Width 12.4 % (11.5-14.5); Segmented Neutrophils % 93.5 %
[2017-11-10] MEDS: Budesonide/Formoterol 160/4.5 MDI IH SCH ×2 (07:42→20:18)
[2017-11-10 07:48] LABS: BUN/Creatinine Ratio 30 (6-26); Blood Urea Nitrogen 13 mg/dL (8-23); Calcium 9.3 mg/dL (8.6-10.3); Carbon Dioxide 36 mEq/L (23-29); Chloride 91 mEq/L (98-107); Glucose 132 mg/dL (70-105); Osmolality,Calculated 278 (280-300); Potassium 4.5 mEq/L (3.5-5.1); Sodium 133 mEq/L (136-145); eGFR For African Americans > 60 (> 60); eGFR For Non-African Americans > 60 (> 60)
[2017-11-10] MEDS: Levofloxacin 750 MG/150 ML 750 MG/150 ML BAG IVPB SCH (08:50)
[2017-11-10] MEDS: ALPRAZolam 0.5 MG TABLET PO SCH ×2 (08:50→20:23)
[2017-11-10] MEDS: Aspirin 81 MG TAB.CHEW PO SCH (08:50)
--- NOTE | 2017-11-10 09:55 | Pulmonology Progress Note ---
<Luis Davis - Last Filed: 11/10/17 12:44> Date of Encounter: 11/10/17 Time of Encounter: 07:40 Assessment and Plan (1) Acute and chronic respiratory failure Current Visit: No Status: Acute Chronic baseline 2-2.5L O2 via NC with BiPap QHS. Secondary to acute exacerbation COPD Afebrile. Respiratory acidosis with metabolic compensation. Hypercapnia persists but is improving. Patient is awake, alert, conversive. Mentation is at baseline per . Supplemental oxygen: NC while awake, wean to baseline 2-2.5L. BiPap as needed while awake. BiPap continuous at night (his baseline). Pulmonary support: Bronchodilators IV Solumedrol Follow with ABG Empiric antibiotic for exacerbation of severe COPD: Levaquin day 3 Microbiology: Respiratory Inf. Panel 11/07 (-) Plan to transfer to step-down unit today. Qualifiers: Respiratory failure complication: hypoxia and hypercapnia Qualified Code(s) : J96.21 - Acute and chronic respiratory failure with hypoxia; J96.22 - Acute and chronic respiratory failure with hypercapnia; J96.22 - Acute and chronic respiratory failure with hypercapnia; J96.22 - Acute and chronic respiratory failure with hypercapnia (2) Acute exacerbation of chronic obstructive airways disease Current Visit: Yes Status: Acute history of severe COPD. Plan as above (3) Elevated troponin Current Visit: Yes Status: Acute In the setting of acute on chronic respiratory failure. Echo 05/17/17: LVER 60-65%, normal LV anr RV size and function. Moderate pulmonary HTN. No significant valvular dysfunction. Nuclear stress test 05/18/17: LVEF 68%. Perfusion imaging negative for ischemia or infarct. No significant EKG changes during study. EKG on intake sinus tachycardia, baseline artifact, RBBB. No acute ischemic changes compared to previous dated 05/17/17. Clinically suspect demand ischemia. Troponin trended down. Aspirin therapy. Cardiology consulted. Subjective Principal diagnosis: COPD exacerbation Interval history: Consult from hospitalist service re: acute exacerbation in COPD in patient with hx of severe COPD with pending lung reduction surgery via [facility] Dr. Alanis ( scheduled 02 December). Mr. Schmidt, a 66 year old male, prsented from home to the ED for evaluation of dyspnea. Onset 4 days prior to presentation. Hx severe COPD with recurrent COPD exacerbations, never required intubation. Patient states he completed his pre-surgical physical therapy however, once home, began to feel short of breath. This progressed and did not improve with BiPap, azithromycin, or prednisone. Hospital day 4 No acute events overnight. Patient persistently on NC during the day at 4L; stable. BiPap now rarely intermittent during the day. BiPap continuous at night (his baseline). He continues to improve. Transferred to [facility] bed step down yesterday. Physically in ICU. Objective PUL Vital signs: Last Vital Signs Temp 98.1 F 11/10/17 07:37 Pulse 95 11/10/17 09:00 Resp 18 11/10/17 08:00 BP 116/83 11/10/17 08:00 Pulse Ox 94 11/10/17 08:00 Results - Laboratory Findings CBC and BMP: 11/10/17 07:06 11/10/17 07:06 ABG ABG pH 7.32 pH Units (7.32-7.45) 11/08/17 15:41 ABG pCO2 84 mmHg (35-45) H* 11/08/17 15:41 ABG pO2 105 mmHg (85-104) H 11/08/17 15:41 ABG O2 Saturation 97 % (95-98) 11/08/17 15:41 PT/INR, D-dimer PT 11.7 Seconds (9.4-12.1) 11/08/17 09:15 Abnormal lab findings: Abnormal lab results WBC 18.5 K/mcL (4.3-11.1) H 11/10/17 07:06 Hgb 12.5 g/dL (12.9-16.9) L 11/10/17 07:06 MCHC 31.0 g/dL (31.6-35.5) L 11/10/17 07:06 Neutrophils # 17.2 K/mcL (1.6-8.9) H 11/10/17 07:06 Lymphocytes # 0.4 K/mcL (0.6-4.6) L 11/10/17 07:06 ABG pCO2 84 mmHg (35-45) H* 11/08/17 15:41 ABG pO2 105 mmHg (85-104) H 11/08/17 15:41 ABG HCO3 43 mEq/L (21-27) H 11/08/17 15:41 ABG Total CO2 46 mEq/L (20-26) H 11/08/17 15:41 ABG Base Excess 13 mEq/L (-2 to 3) H 11/08/17 15:41 Sodium 133 mEq/L (136-145) L 11/10/17 07:06 Chloride 91 mEq/L (98-107) L 11/10/17 07:06 Carbon Dioxide 36 mEq/L (23-29) H 11/10/17 07:06 Creatinine 0.43 mg/dL (0.70-1.30) L 11/10/17 07:06 BUN/Creatinine Ratio 30 (6-26) H 11/10/17 07:06 Glucose 132 mg/dL (70-105) H 11/10/17 07:06 POC Glucose 123 (58-89) H 11/07/17 20:01 Calculated Osmolality 278 (280-300) L 11/10/17 07:06 Troponin I 0.14 ng/mL (< 0.04) H* 11/08/17 14:42 B-Natriuretic Peptide 143 pg/mL (Less than 100) H 11/07/17 18:02 HDL Cholesterol 96 mg/dL (40-59) H 11/09/17 04:52 - Microbiology Findings Microbiology Findings: Microbiology, Last 48 Hours 11/08/17 03:30 Sputum Culture - Final Sputum - Clinical Findings Intake & Output: Intake & Output 11/09/17 11/10/17 11/10/17 23:59 07:59 15:59 Intake Total 240 / 240 Output Total 475 / 475 1600 / 1600 Balance -235 / -235 -1600 / -1600 Weight 60.6 kg - VTE Documentation of Mechanical Device: Intermittent pneumatic compression device Consult Discharge Plan - Plan Referrals: [facility]CARDIOLOGY [Other] (OFFICE WILL CALL YOU WITH A FOLLOW UP APPOINTMENT) Layton Box MD [Primary Care Provider] - 11/20/17 1:15 pm Teodora Flaherty MD [Partnered Physician] - 11/23/17 9:00 am <Teodora Flaherty - Last Filed: 11/10/17 21:18> Date of Encounter: 11/10/17 Objective PUL Vital signs: Last Vital Signs Temp 98.3 F 11/10/17 19:42 Pulse 94 11/10/17 19:42 Resp 23 11/10/17 20:37 BP 150/75 11/10/17 20:37 Pulse Ox 97 11/10/17 20:37 Results - Laboratory Findings CBC and BMP: 11/10/17 07:06 11/10/17 07:06 ABG ABG pH 7.32 pH Units (7.32-7.45) 11/08/17 15:41 ABG pCO2 84 mmHg (35-45) H* 11/08/17 15:41 ABG pO2 105 mmHg (85-104) H 11/08/17 15:41 ABG O2 Saturation 97 % (95-98) 11/08/17 15:41 PT/INR, D-dimer PT 11.7 Seconds (9.4-12.1) 11/08/17 09:15 Abnormal lab findings: Abnormal lab results WBC 18.5 K/mcL (4.3-11.1) H 11/10/17 07:06 Hgb 12.5 g/dL (12.9-16.9) L 11/10/17 07:06 MCHC 31.0 g/dL (31.6-35.5) L 11/10/17 07:06 Neutrophils # 17.2 K/mcL (1.6-8.9) H 11/10/17 07:06 Lymphocytes # 0.4 K/mcL (0.6-4.6) L 11/10/17 07:06 ABG pCO2 84 mmHg (35-45) H* 11/08/17 15:41 ABG pO2 105 mmHg (85-104) H 11/08/17 15:41 ABG HCO3 43 mEq/L (21-27) H 11/08/17 15:41 ABG Total CO2 46 mEq/L (20-26) H 11/08/17 15:41 ABG Base Excess 13 mEq/L (-2 to 3) H 11/08/17 15:41 Sodium 133 mEq/L (136-145) L 11/10/17 07:06 Chloride 91 mEq/L (98-107) L 11/10/17 07:06 Carbon Dioxide 36 mEq/L (23-29) H 11/10/17 07:06 Creatinine 0.43 mg/dL (0.70-1.30) L 11/10/17 07:06 BUN/Creatinine Ratio 30 (6-26) H 11/10/17 07:06 Glucose 132 mg/dL (70-105) H 11/10/17 07:06 POC Glucose 123 (58-89) H 11/07/17 20:01 Calculated Osmolality 278 (280-300) L 11/10/17 07:06 Troponin I 0.14 ng/mL (< 0.04) H* 11/08/17 14:42 B-Natriuretic Peptide 143 pg/mL (Less than 100) H 11/07/17 18:02 HDL Cholesterol 96 mg/dL (40-59) H 11/09/17 04:52 - Microbiology Findings Microbiology Findings: Microbiology, Last 48 Hours 11/08/17 03:30 Sputum Culture - Final Sputum - Clinical Findings Intake & Output: Intake & Output 11/10/17 11/10/17 11/10/17 07:59 15:59 23:59 Intake Total 640 / 640 240 / 240 Output Total 1600 / 1600 250 / 250 200 / 200 Balance -1600 / -1600 390 / 390 40 / 40 Weight 60.6 kg 59.9 kg - Attending Attestation - Attending Attestation I saw and evaluated this patient and my medical decision-making was reviewed with the Resident Physician. I agree with the documented findings, disposition and treatment plan as described except to the extent set forth below. We independently had [id number] contact with the patient Patient seen and examined at bedside Labs, radiology, chart personally reviewed. Management was reviewed during multidisciplinary critical care rounds. 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 Patient has severe bullous emphysema disease awaiting for lung volume reduction surgery at [facility] 11/09 Patient is off the BIPAP tolerating well counseled the patient to go on BIPAP prn but continuous during night . 11/10 To continue COPD exacerbation treatment will need BIPAP at night Cards: Patient had a troponin leak which is trending down looks like supply demand mismatch cardiology was consulted by the hospitalist no evidence of obstructive CAD with recent stress test negative will do aspirin BB , will stop heparin drip No evidence of NSTEMI , ECHO showed no wall motion abnormalities with preserved EF 11/10 Patient is hemodynamically stable FEN-GI advance diet as tolerated Renal:Labs and output reviewed ID: To descalate antibiotics Heme/Onc:DVT prophylaxis Endo: Glucose Monitored Integ/MSK: Skin Care per routine ICU Nursing Protocol to prevent ulcers. Lines: All lines examined without evidence of infection : Dispo: Can be transferred to step down today CODE:[id number] -I
[2017-11-10] MEDS: MethylPREDNISolone 40 MG/ML VIAL IVP SCH ×2 (14:53→20:22)
--- NOTE | 2017-11-10 18:01 | Internal Med Progress Note ---
Date of Encounter: 11/10/17 Time of Encounter: 16:01 - Subjective Interval history: HPI: 66 yr old man with h/o advanced COPD awaiting lung volume reduction surgery at [facility]. For 4 days he became increasingly dyspnic and was given Azithromycin and Prednisone as OP. His symptoms did not improve prompting his ER visit. Interval changes: 11/08/17: Breathing more comfrtably on BIPAP RR still > 20 Troponins increased over night 0.04 --> 0.20 --> 0.22 11/09/17: Breathing comfortably on NC 2L/min. (At home he uses 2?/min) Diet advanced No chest pain. No new complaints 11/10/2017 Continuing to improve Moved out of unit to 2N Breathing comfortably on 2L Assessment and Plan COPD exacerbation Solumedrol, bronchodilators, empiric Levaquin BiPAP --> HF-NC over night and NC 4l/min this am breathing more comfortably. Appreciate Pulmonary Med. assistance CXR:No acute pulmonary process Inf swab: Neg He will need to f/u with retail loss prevention specialist at [facility] after discharge. Acute and chronic respiratory failure Current visit: No Status: Acute Improved on BiPAP. ABG: pH 7.26 CO2 98 O2 75 HCO3 44 Initial ABG: pH 7.15 CO2 123 O2 147 HCO3 43. Elevated Troponins: Per pt no prior history of CAD Normal myocardial scan done at [facility] recently Telemetry show ST with nonspeific ST changes ECG pending Demand ischemia vs ACS Cardiology consulted and agree troponin bump due to demand ischemia - Constitutional Vitals: Temp Pulse Resp BP Pulse Ox 98.6 F 108 20 153/89 96 11/10/17 15:00 11/10/17 17:37 11/10/17 17:27 11/10/17 17:27 11/10/17 17:27 General appearance: Present: A&O X 3, pleasant, no acute distress, underweight, answers questions appropriately - Head Head exam: Present: atraumatic, normocephalic - Eye Eye exam: Present: PERRL, conjuntiva pink, sclera anicteric Pupils: Present: PERRL - Neck Neck exam general surgery: Present: supple, trachea midline. Absent: lymphadenopathy - Respiratory Respiratory exam: Present: CTAB. Absent: accessory muscle use, rales, rhonchi, wheezes - Cardiovascular Cardiovascular exam: Present: RRR, +S1, +S2. Absent: diastolic murmur, gallop, rubs, systolic murmur - GI/Abdominal GI/Abdominal exam: Present: normal bowel sounds, soft, no peritoneal signs. Absent: distended, tenderness - Extremities Exam Extremities exam: Present: warm, radial pulses palpable and symmetrical. Absent : calf tenderness, cyanotic, pedal edema - Neurological Exam Neurological exam: Present: CN II-XII intact, oriented X3, no focal deficits. Absent: pronater drift, facial droop, speech deficit - Skin Skin exam: Present: dry, intact Internal Medicine: Result - Labs CBC & Chem 7: 11/10/17 07:06 11/10/17 07:06 Labs: Short CBC 11/10/17 Range/Units 07:06 WBC 18.5 H (4.3-11.1) K/mcL Hgb 12.5 L (12.9-16.9) g/dL Hct 40.3 (37.5-50.1) % Plt Count 255 (140-400) K/mcL Neutrophils # 17.2 H (1.6-8.9) K/mcL BMP 11/10/17 07:06 Sodium 133 L Potassium 4.5 Chloride 91 L Carbon Dioxide 36 H BUN 13 Creatinine 0.43 L Glucose 132 H Calcium 9.3 - ABG Interpretation ABG results: ABG ABG pH 7.32 pH Units (7.32-7.45) 11/08/17 15:41 ABG pCO2 84 mmHg (35-45) H* 11/08/17 15:41 ABG pO2 105 mmHg (85-104) H 11/08/17 15:41 ABG O2 Saturation 97 % (95-98) 11/08/17 15:41 PT/INR, D-dimer PT 11.7 Seconds (9.4-12.1) 11/08/17 09:15 - VTE Documentation of Mechanical Device: Intermittent pneumatic compression device Consult Discharge Plan - Plan Referrals: [facility]CARDIOLOGY [Other] (OFFICE WILL CALL YOU WITH A FOLLOW UP APPOINTMENT) Layton Box MD [Primary Care Provider] - 11/20/17 1:15 pm Teodora Flaherty MD [Partnered Physician] - 11/23/17 9:00 am
[2017-11-11] MEDS: Ipratropium/Albuterol Neb 3 ML IH SCH ×4 (00:08→11:45)
[2017-11-11] MEDS: Famotidine 20 MG/2 ML VIAL IVP SCH ×2 (05:34→17:02)
[2017-11-11] MEDS: *HR* Heparin 5,000 UNIT/ML VIAL SQ SCH ×3 (05:34→21:05)
[2017-11-11] MEDS: Acetaminophen 325 MG TABLET PO PRN (05:35)
[2017-11-11] MEDS: MethylPREDNISolone 40 MG/ML VIAL IVP SCH (05:35)
[2017-11-11 07:59] LABS: Basophils % 0.2 %; Hematocrit 39.5 % (37.5-50.1); Hemoglobin 12.6 g/dL (12.9-16.9); Immature Granulocytes % 0.8 % (0-4); Lymphocytes # 0.4 K/mcL (0.6-4.6); Mean Corpuscular HGB Conc 31.9 g/dL (31.6-35.5); Mean Corpuscular Hemoglobin 30.1 pg (28.0-33.3); Mean Corpuscular Volume 94.5 fL (83.0-100.0); Mean Platelet Volume 8.7 fL (9.4-12.4); Monocytes # 0.8 K/mcL (0.0-1.3); Monocytes % 5.9 %; Neutrophils # 11.9 K/mcL (1.6-8.9); Platelet Count 283 K/mcL (140-400); Red Blood Count 4.18 M/mcL (4.19-5.50); Red Cell Distribution Width 12.5 % (11.5-14.5); Segmented Neutrophils % 90.1 %
[2017-11-11] MEDS: Aspirin 81 MG TAB.CHEW PO SCH (08:00)
[2017-11-11] MEDS: ALPRAZolam 0.5 MG TABLET PO SCH (08:00)
[2017-11-11] MEDS: Levofloxacin 750 MG/150 ML 750 MG/150 ML BAG IVPB SCH (08:02)
[2017-11-11] MEDS: Budesonide/Formoterol 160/4.5 MDI IH SCH ×2 (08:03→21:56)
[2017-11-11 08:23] LABS: BUN/Creatinine Ratio 42 (6-26); Blood Urea Nitrogen 21 mg/dL (8-23); Calcium 9.2 mg/dL (8.6-10.3); Carbon Dioxide 44 mEq/L (23-29); Chloride 91 mEq/L (98-107); Glucose 120 mg/dL (70-105); Osmolality,Calculated 284 (280-300); Potassium 4.5 mEq/L (3.5-5.1); Sodium 135 mEq/L (136-145); eGFR For African Americans > 60 (> 60); eGFR For Non-African Americans > 60 (> 60)
[2017-11-11] MEDS: amLODIPine 5 MG TABLET PO SCH (12:40)
--- NOTE | 2017-11-11 13:25 | Internal Med Progress Note ---
Date of Encounter: 11/11/17 Time of Encounter: 12:40 - Subjective Interval history: HPI: 66 yr old man with h/o advanced COPD awaiting lung volume reduction surgery at [facility]. For 4 days he became increasingly dyspnic and was given Azithromycin and Prednisone as OP. His symptoms did not improve prompting his ER visit. Interval changes: 11/08/17: Breathing more comfrtably on BIPAP RR still > 20 Troponins increased over night 0.04 --> 0.20 --> 0.22 11/09/17: Breathing comfortably on NC 2L/min. (At home he uses 2?/min) Diet advanced No chest pain. No new complaints 11/10/2017 Continuing to improve Moved out of unit to 2N Breathing comfortably on 2L 11/11/2017: Very hyperactive from steroids. Sinus congestion today Tachycardic and hypertensive (secondary to medications i.e. steroids and albuterol) Breathing comfortably Clinically improved Assessment and Plan COPD exacerbation Solumedrol, bronchodilators, empiric Levaquin BiPAP --> HF-NC over --> NC 2-2.5 ll/min this am breathing more comfortably. Appreciate Pulmonary Med. assistance CXR:No acute pulmonary process Inf swab: Neg He will need to f/u with animal control specialist at [facility] after discharge. Acute and chronic respiratory failure Current visit: No Status: Acute Improved on BiPAP. ABG: pH 7.26 CO2 98 O2 75 HCO3 44 Initial ABG: pH 7.15 CO2 123 O2 147 HCO3 43. Elevated Troponins: Per pt no prior history of CAD Normal myocardial scan done at [facility] recently Telemetry show ST with nonspeific ST changes ECG pending Demand ischemia vs ACS Cardiology consulted and agree troponin bump due to demand ischemia - Constitutional Vitals: Temp Pulse Resp BP Pulse Ox 98.6 F 102 18 145/72 97 11/11/17 07:21 11/11/17 10:47 11/11/17 11:47 11/11/17 09:20 11/11/17 11:47 General appearance: Present: A&O X 3, pleasant, no acute distress, underweight, answers questions appropriately - Head Head exam: Present: atraumatic, normocephalic - Eye Eye exam: Present: PERRL, conjuntiva pink, sclera anicteric Pupils: Present: PERRL - Neck Neck exam general surgery: Present: supple, trachea midline. Absent: lymphadenopathy - Respiratory Respiratory exam: Present: CTAB. Absent: accessory muscle use, rales, rhonchi, stridor, wheezes - Cardiovascular Cardiovascular exam: Present: +S1, +S2, tachycardia. Absent: diastolic murmur, gallop, rubs, systolic murmur - GI/Abdominal GI/Abdominal exam: Present: normal bowel sounds, soft, no peritoneal signs. Absent: distended, tenderness - Extremities Exam Extremities exam: Present: warm, radial pulses palpable and symmetrical. Absent : calf tenderness, cyanotic, pedal edema - Neurological Exam Neurological exam: Present: CN II-XII intact, oriented X3, no focal deficits. Absent: pronater drift, facial droop, speech deficit - Skin Skin exam: Present: dry, intact, warm Internal Medicine: Result - Labs CBC & Chem 7: 11/11/17 07:51 11/11/17 07:51 Labs: Short CBC 11/11/17 Range/Units 07:51 WBC 13.2 H (4.3-11.1) K/mcL Hgb 12.6 L (12.9-16.9) g/dL Hct 39.5 (37.5-50.1) % Plt Count 283 (140-400) K/mcL Neutrophils # 11.9 H (1.6-8.9) K/mcL BMP 11/11/17 07:51 Sodium 135 L Potassium 4.5 Chloride 91 L Carbon Dioxide 44 H* BUN 21 Creatinine 0.50 L Glucose 120 H Calcium 9.2 - ABG Interpretation ABG results: ABG ABG pH 7.32 pH Units (7.32-7.45) 11/08/17 15:41 ABG pCO2 84 mmHg (35-45) H* 11/08/17 15:41 ABG pO2 105 mmHg (85-104) H 11/08/17 15:41 ABG O2 Saturation 97 % (95-98) 11/08/17 15:41 PT/INR, D-dimer PT 11.7 Seconds (9.4-12.1) 11/08/17 09:15 - VTE Documentation of Mechanical Device: Intermittent pneumatic compression device Consult Discharge Plan - Plan Referrals: [facility],CARDIOLOGY [Other] (OFFICE WILL CALL YOU WITH A FOLLOW UP APPOINTMENT) Layton Box MD [Primary Care Provider] - 11/20/17 1:15 pm Teodora Flaherty MD [Partnered Physician] - 11/23/17 9:00 am
[2017-11-11] MEDS: *HR* LORazepam 1 MG TABLET PO PRN ×2 (14:16→21:05)
[2017-11-11] MEDS: Levalbuterol Neb 1.25 MG/3 ML IH SCH ×2 (16:04→21:56)
[2017-11-11] MEDS: predniSONE 20 MG TABLET PO SCH (17:01)
[2017-11-12] MEDS: Levalbuterol Neb 1.25 MG/3 ML IH SCH ×4 (04:30→21:42)
[2017-11-12] MEDS: Famotidine 20 MG/2 ML VIAL IVP SCH ×2 (05:05→17:52)
[2017-11-12] MEDS: *HR* Heparin 5,000 UNIT/ML VIAL SQ SCH ×3 (05:05→21:27)
[2017-11-12] MEDS: predniSONE 20 MG TABLET PO SCH (07:32)
[2017-11-12] MEDS: amLODIPine 5 MG TABLET PO SCH (07:32)
[2017-11-12] MEDS: Loratadine 10 MG TABLET PO SCH (07:33)
[2017-11-12] MEDS: Aspirin 81 MG TAB.CHEW PO SCH (07:33)
[2017-11-12] MEDS: *HR* LORazepam 1 MG TABLET PO PRN ×2 (07:33→13:47)
[2017-11-12] MEDS: Acetaminophen 325 MG TABLET PO PRN (07:34)
[2017-11-12] MEDS: Levofloxacin 750 MG/150 ML 750 MG/150 ML BAG IVPB SCH (07:35)
[2017-11-12] MEDS: Fluticasone Propionate Nasal 50 MCG/SPRAY BOTTLE NS SCH (07:37)
[2017-11-12] MEDS: Budesonide/Formoterol 160/4.5 MDI IH SCH ×2 (09:33→21:42)
--- NOTE | 2017-11-12 13:27 | Internal Med Progress Note ---
Date of Encounter: 11/12/17 Time of Encounter: 13:15 - Subjective Interval history: HPI: 66 yr old man with h/o advanced COPD awaiting lung volume reduction surgery at [facility]. For 4 days he became increasingly dyspnic and was given Azithromycin and Prednisone as OP. His symptoms did not improve prompting his ER visit. Interval changes: 11/08/17: Breathing more comfrtably on BIPAP RR still > 20 Troponins increased over night 0.04 --> 0.20 --> 0.22 11/09/17: Breathing comfortably on NC 2L/min. (At home he uses 2?/min) Diet advanced No chest pain. No new complaints 11/10/2017 Continuing to improve Moved out of unit to Breathing comfortably on 2L 11/11/2017: Very hyperactive from steroids. Sinus congestion today Tachycardic and hypertensive (secondary to medications i.e. steroids and albuterol) Breathing comfortably Clinically improved 11/12/17: His HR,BP and breathing are all improved but he remains very anxious. Back to baseline 02 requirements Assessment and Plan COPD exacerbation Solumedrol, bronchodilators, empiric Levaquin BiPAP --> HF-NC over --> NC 2-2.5 ll/min this am breathing more comfortably. Appreciate Pulmonary Med. assistance CXR:No acute pulmonary process Inf swab: Neg He will need to f/u with clerk specialist at [facility] after discharge. Acute and chronic respiratory failure Current visit: No Status: Acute Improved on BiPAP. ABG: pH 7.26 CO2 98 O2 75 HCO3 44 Initial ABG: pH 7.15 CO2 123 O2 147 HCO3 43. Elevated Troponins: Per pt no prior history of CAD Normal myocardial scan done at [facility] recently Telemetry show ST with nonspeific ST changes ECG pending Demand ischemia vs ACS Cardiology consulted and agree troponin bump due to demand ischemia - Constitutional Vitals: Temp Pulse Resp BP Pulse Ox 97.8 F 93 18 143/84 95 11/12/17 11:42 11/12/17 11:42 11/12/17 11:42 11/12/17 11:42 11/12/17 11:42 General appearance: Present: A&O X 3, pleasant, no acute distress, underweight, answers questions appropriately - Head Head exam: Present: atraumatic, normocephalic - Eye Eye exam: Present: PERRL, conjuntiva pink, sclera anicteric Pupils: Present: PERRL - Neck Neck exam general surgery: Present: supple, trachea midline. Absent: lymphadenopathy - Respiratory Respiratory exam: Present: CTAB. Absent: accessory muscle use, rales, rhonchi, wheezes - Cardiovascular Cardiovascular exam: Present: RRR, +S1, +S2. Absent: diastolic murmur, gallop, rubs, systolic murmur - GI/Abdominal GI/Abdominal exam: Present: normal bowel sounds, soft, no peritoneal signs. Absent: distended, tenderness - Extremities Exam Extremities exam: Present: warm, radial pulses palpable and symmetrical. Absent : calf tenderness, cyanotic, pedal edema - Neurological Exam Neurological exam: Present: CN II-XII intact, oriented X3, no focal deficits. Absent: pronater drift, facial droop, speech deficit - Psychiatric Psychiatric exam: Present: anxious - Skin Skin exam: Present: dry, intact Internal Medicine: Result - Labs CBC & Chem 7: 11/11/17 07:51 11/11/17 07:51 - ABG Interpretation ABG results: ABG ABG pH 7.32 pH Units (7.32-7.45) 11/08/17 15:41 ABG pCO2 84 mmHg (35-45) H* 11/08/17 15:41 ABG pO2 105 mmHg (85-104) H 11/08/17 15:41 ABG O2 Saturation 97 % (95-98) 11/08/17 15:41 PT/INR, D-dimer PT 11.7 Seconds (9.4-12.1) 11/08/17 09:15 - VTE Documentation of Mechanical Device: Intermittent pneumatic compression device Consult Discharge Plan - Plan Referrals: [facility],CARDIOLOGY [Other] (OFFICE WILL CALL YOU WITH A FOLLOW UP APPOINTMENT) Layton Box MD [Primary Care Provider] - 11/20/17 1:15 pm Teodora Flaherty MD [Partnered Physician] - 11/23/17 9:00 am
[2017-11-12] MEDS: predniSONE 10 MG TABLET PO SCH (17:51)
[2017-11-13 03:43] LABS: Basophils % 0.4 %; Hematocrit 38.2 % (37.5-50.1); Hemoglobin 12.5 g/dL (12.9-16.9); Immature Granulocytes % 1.7 % (0-4); Lymphocytes # 0.5 K/mcL (0.6-4.6); Lymphocytes % 4.8 %; Mean Corpuscular HGB Conc 32.7 g/dL (31.6-35.5); Mean Corpuscular Hemoglobin 30.6 pg (28.0-33.3); Mean Corpuscular Volume 93.4 fL (83.0-100.0); Mean Platelet Volume 8.9 fL (9.4-12.4); Monocytes # 0.8 K/mcL (0.0-1.3); Monocytes % 7.6 %; Neutrophils # 9.4 K/mcL (1.6-8.9); Platelet Count 250 K/mcL (140-400); Red Blood Count 4.09 M/mcL (4.19-5.50); Red Cell Distribution Width 12.5 % (11.5-14.5); Segmented Neutrophils % 85.5 %
[2017-11-13] MEDS: Levalbuterol Neb 1.25 MG/3 ML IH SCH ×2 (04:00→10:45)
[2017-11-13 04:05] LABS: BUN/Creatinine Ratio 38 (6-26); Blood Urea Nitrogen 18 mg/dL (8-23); Calcium 8.9 mg/dL (8.6-10.3); Carbon Dioxide 43 mEq/L (23-29); Chloride 88 mEq/L (98-107); Glucose 134 mg/dL (70-105); Osmolality,Calculated 276 (280-300); Potassium 4.9 mEq/L (3.5-5.1); Sodium 131 mEq/L (136-145); eGFR For African Americans > 60 (> 60); eGFR For Non-African Americans > 60 (> 60)
[2017-11-13] MEDS: Famotidine 20 MG/2 ML VIAL IVP SCH (05:05)
[2017-11-13] MEDS: *HR* Heparin 5,000 UNIT/ML VIAL SQ SCH (05:05)
[2017-11-13] MEDS: *HR* LORazepam 1 MG TABLET PO PRN ×2 (05:14→13:34)
[2017-11-13] MEDS: Acetaminophen 325 MG TABLET PO PRN (05:17)
[2017-11-13] MEDS: predniSONE 10 MG TABLET PO SCH (08:22)
[2017-11-13] MEDS: amLODIPine 5 MG TABLET PO SCH (08:22)
[2017-11-13] MEDS: Aspirin 81 MG TAB.CHEW PO SCH (08:23)
[2017-11-13] MEDS: Fluticasone Propionate Nasal 50 MCG/SPRAY BOTTLE NS SCH (08:23)
[2017-11-13] MEDS: Loratadine 10 MG TABLET PO SCH (08:23)
[2017-11-13] MEDS: Levofloxacin 750 MG/150 ML 750 MG/150 ML BAG IVPB SCH (08:23)
[2017-11-13] MEDS: Budesonide/Formoterol 160/4.5 MDI IH SCH (10:45)
[2017-11-13 11:41] VITALS: BP 141/87
--- NOTE | 2017-11-13 12:07 | Discharge Summary ---
Date of Encounter: 11/13/17 Time of Encounter: 12:06 Hospital course: Mr. Schmidt is a 66 year old male with a PMH COPD, testicular cancer ( orchiectomy 2003) who presented to [facility] complaining of difficulty in breathing for the past 4 days. He is currently undergoing pulmonary rehab for lung volume reduction surgery to be done at [facility] and just had a pulmonary rehab session yesterday. His afternoon babysitter at [facility] is Dr. Alanis. He stated that he feels that it is harder to breathe and he is been coughing with more brown sputum production along with occasional fevers. His afternoon babysitter gave him azithromycin and prednisone to take should he develop dyspnea and cough, he has been taking this medication for 4 days. On 2L oxygen continuous and BiPAP at night. His was just diagnosed with bacterial pneumonia. Denies chest pain , palpitations, wheezing, abdominal pain, nausea, vomiting. He denies recent travel, trauma/falls, history of DVT or PE. CXR demonstrated COPD, no acute cardiopulmonary process. ABG: pH 7.15 CO2 123 O2 147 HCO3 43. He was placed on BiPAP and admitted to te ICU where he was evaluated by Pulmonary medicine and Cardiology. Initially his troponins were elevated but no significant ischemic changes were noted on his ECG or telemetry. Cardiology determined his troponin elevation was likely secondary to demand ischemia and not ACS. He was treated with high dose solumedrol which improved his wheezing but made him very anxious and tachycardic. He was given Ativan and his HR improved. He was also very hypertensive and Lisinopril and Norvasc wer added to control his BP. He was discharged in stable condition today and will f/u with his pulmonolgist at [facility]. He was given a hand written script for a prednisone taper and will take 20 mg tablets; 3 for 3 days, then 2 for 3 days, then 1 for 3 days and then return to his normal home dose of 10 mg/day. Discharge discussed with: patient, family, nurse, case management Time spent discussing smoking cessation with patient: more than 10 minutes - Time Spent with Patient Total time spent providing and/or coordinating discharge services: Greater than 30 minutes - Discharge Medications Prescriptions: Fluticasone Propionate Nasal [Flonase] 50 mcg NS DAILY 6 Days #1 bottle Lisinopril [Zestril] 5 mg PO DAILY 30 Days #30 tablet Loratadine [Claritin] 10 mg PO DAILY 6 Days #6 tablet Home Medications: ALPRAZolam [Xanax 0.5 MG Tablet] 0.5 mg PO BID 05/17/17 [History] Oxygen 2 l NS AD 05/17/17 [History] Albuterol Sulfate [Ventolin Hfa] 2 puff IH Q4H PRN 06/12/17 [History] Ipratropium/Albuterol Neb [Duoneb] 3 ml IH TID 06/12/17 [History] Azithromycin 250 mg PO DAILY 11/07/17 [History] Budesonide/Formoterol 160/4.5 [Symbicort 160/4.5] 2 puff IH BIDR 11/07/17 [ History] Ergocalciferol (VITAMIN D2) [Vitamin D2] 50,000 unit PO QWEEK 11/07/17 [History] Umeclidinium [place] [Incruse Ellipta] 62.5 mcg IH DAILY 11/07/17 [History] predniSONE [PredniSONE] 10 mg PO DAILY 11/07/17 [History] Aspirin 81 mg PO DAILY tab.chew 11/13/17 [Rx] Fluticasone Propionate Nasal [Flonase] 50 mcg NS DAILY 6 Days #1 bottle [Rx] Lisinopril [Zestril] 5 mg PO DAILY 30 Days #30 tablet 11/13/17 [Rx] Loratadine [Claritin] 10 mg PO DAILY 6 Days #6 tablet 11/13/17 [Rx] Allergies/Adverse Reactions: 3 Allergy/AdvReac Type Severity Reaction Status Date / Time Penicillins [PCN] Allergy Mild Hives Verified 05/17/17 12:00 Date of admission: 11/07/17 19:25 Primary care physician: Layton Box MD Consults: 11/08/17 08:57 Consult to Cardiology [CONS] Routine Comment: Consulting Provider: Cardiology Debbie Reason for Consult: elevated troponins (NSTEMI vs possible demand ischemia with copd exacerbation) Time Notified: 08:59 Call Completed: No - Constitutional Vitals: Temp Pulse Resp BP Pulse Ox 98.7 F 85 16 141/87 92 11/13/17 11:37 11/13/17 11:57 11/13/17 11:37 11/13/17 11:37 11/13/17 11:37 General appearance: Present: A&O X 3, pleasant, no acute distress, underweight, answers questions appropriately - Head Head exam: Present: atraumatic, normocephalic - Eye Eye exam: Present: PERRL, conjuntiva pink, sclera anicteric Pupils: Present: PERRL - Neck Neck exam general surgery: Present: supple, trachea midline. Absent: lymphadenopathy - Respiratory Respiratory exam: Present: CTAB. Absent: accessory muscle use, rales, rhonchi, wheezes - Cardiovascular Cardiovascular exam: Present: RRR, +S1, +S2. Absent: diastolic murmur, gallop, rubs, systolic murmur - GI/Abdominal GI/Abdominal exam: Present: normal bowel sounds, soft, no peritoneal signs. Absent: distended, tenderness - Extremities Exam Extremities exam: Present: warm, radial pulses palpable and symmetrical. Absent : calf tenderness, cyanotic, pedal edema - Neurological Exam Neurological exam: Present: CN II-XII intact, oriented X3, no focal deficits. Absent: pronater drift, facial droop, speech deficit - Psychiatric Psychiatric exam: Present: anxious - Skin Skin exam: Present: dry, intact - Patient Status Disposition: Home, Self-Care Condition: Fair - Discharge Instructions Instructions: Chronic Obstructive Pulmonary Disease (DC) Follow Up With: [facility] [Other] (OFFICE WILL CALL YOU WITH A FOLLOW UP APPOINTMENT) Layton Box MD [Primary Care Provider] - 11/20/17 1:15 pm Teodora Flaherty MD [Partnered Physician] - 11/23/17 9:00 am - VTE Documentation of Mechanical Device: Intermittent pneumatic compression device
[2017-11-13] MEDS ORDERED: Famotidine 20 MG TABLET PO SCH (21:00)
[2017-11-14] MEDS ORDERED: levoFLOXacin 750 MG TABLET PO SCH (09:00)
== END 2017-11-13 13:53 | disposition home or self-care (01) | DRG 190 ==
LOC: EMEROO 17:20 → ICNU 19:25 → 2NNU 11-10 11:11
PROVIDERS: ADMIT Pediatrics; ATTEND Pediatrics

== ENCOUNTER 2019-06-02 04:41 | Inpatient (IN) ==
[2019-06-02] MEDS ORDERED: Ipratropium/Albuterol Neb 3 ML IH ONE (05:04)
[2019-06-02] MEDS ORDERED: predniSONE 20 MG TABLET PO ONE (05:17)
[2019-06-02 05:25] LABS: Basophils % 0.5 %; Eosinophils # 0.5 K/mcL (0.0-0.6); Eosinophils % 7.3 %; Hemoglobin 12.1 g/dL (12.9-16.9); Immature Granulocytes % 0.3 % (0-4); Lymphocytes # 0.9 K/mcL (0.6-4.6); Lymphocytes % 14.2 %; Mean Corpuscular Hemoglobin 29.7 pg (28.0-33.3); Mean Corpuscular Volume 95.6 fL (83.0-100.0); Mean Platelet Volume 9.1 fL (9.4-12.4); Monocytes % 14.8 %; Platelet Count 182 K/mcL (140-400); Red Blood Count 4.08 M/mcL (4.19-5.50); Red Cell Distribution Width 13.3 % (11.5-14.5); Segmented Neutrophils % 62.9 %; White Blood Count 6.4 K/mcL (4.3-11.1)
--- NOTE | 2019-06-02 05:35 | Emergency Department Note ---
Disposition Clinical Impression: COPD exacerbation Pneumonia Qualifiers: Pneumonia type: due to unspecified organism Laterality: unspecified laterality Lung location: unspecified part of lung Qualified Code(s): J18.9 - Pneumonia, unspecified organism Disposition: Admitted As Inpatient Condition: Good Referrals: Layton Box MD [Primary Care Provider] - Forms: ED Satisfaction Letter Time of Disposition: 06:41 General Adult HPI - General Chief complaint: ED Shortness of Breath/Dyspnea Stated complaint: EVERETT Time Seen by Provider: 06/02/19 05:02 Source: patient, EMS Limitations: no limitations Nursing Notes Reviewed: Yes Vital Signs Reviewed: Yes - History of Present Illness Pain Scale: 0 - Related Data Home Medications Medication Instructions Recorded Confirmed ALPRAZolam [Xanax 0.5 MG Tablet] 0.5 mg PO BID 05/17/17 11/07/17 Oxygen 2 l NS AD 05/17/17 11/07/17 Albuterol Sulfate [Ventolin Hfa] 2 puff IH Q4H PRN 06/12/17 11/07/17 Ipratropium/Albuterol Neb [Duoneb] 3 ml IH TID 06/12/17 11/07/17 Budesonide/Formoterol 160/4.5 2 puff IH BIDR 11/07/17 11/07/17 [Symbicort 160/4.5] Ergocalciferol (VITAMIN D2) 50,000 unit PO QWEEK 11/07/17 11/07/17 [Vitamin D2] Umeclidinium [place] [Incruse 62.5 mcg IH DAILY 11/07/17 11/07/17 Ellipta] predniSONE [PredniSONE] 10 mg PO DAILY 11/07/17 11/07/17 Previous Rx's Medication Instructions Recorded Aspirin 81 mg PO DAILY tab.chew 11/13/17 Fluticasone Propionate Nasal 50 mcg NS DAILY 6 Days #1 bottle 11/13/17 [Flonase] Lisinopril [Zestril] 5 mg PO DAILY 30 Days #30 tablet 11/13/17 Loratadine [Claritin] 10 mg PO DAILY 6 Days #6 tablet 11/13/17 Guaifenesin/Dm/Pseudoephedrine 1 each PO BID #20 tablet 06/24/18 [Capmist Dm Tablet] Levofloxacin [Levaquin] 750 mg PO DAILY #10 tablet 06/24/18 PredniSONE [Deltasone] 20 mg PO DAILY #12 tablet 06/24/18 Allergies Allergy/AdvReac Type Severity Reaction Status Date / Time Penicillins [PCN] Allergy Mild Hives Verified 06/24/18 13:30 Past Medical History - Past Medical History Medical history: Reports: COPD Surgical history: Reports: other (Orchiectomy 2004) Psychiatric history: Reports: anxiety - Social History Smoking Status: Former smoker Smokeless Tobacco Status: No Alcohol use: Reports: occasionally Drug use: Reports: none Physical Exam - General Limitations: no limitations General appearance: alert, anxious Course Vital Signs Temperature 99.4 F 06/02/19 04:45 Pulse Rate 83 06/02/19 04:45 Respiratory Rate 20 06/02/19 04:45 Blood Pressure 155/65 06/02/19 04:45 O2 Sat by Pulse Oximetry 100 06/02/19 04:45 Temperature 99.4 F 06/02/19 04:45 Pulse Rate 88 06/02/19 05:01 Respiratory Rate 21 06/02/19 06:46 Blood Pressure 158/66 06/02/19 05:01 O2 Sat by Pulse Oximetry 95 06/02/19 07:04 Oxygen Delivery Oxygen Delivery Nasal Cannula Medical Decision Making - Medical Records Medical records reviewed: Yes I reviewed the patient's medical records. - Lab Data Lab results reviewed: Yes I reviewed the patient's lab results. Result diagrams: 06/02/19 04:51 06/02/19 04:51 Lab Results 06/02/19 06/02/19 06/02/19 Range/Units 04:51 04:51 07:20 WBC 6.4 (4.3-11.1) K/mcL RBC 4.08 L (4.19-5.50) M/mcL Hgb 12.1 L (12.9-16.9) g/dL Hct 39.0 (37.5-50.1) % MCV 95.6 (83.0-100.0) fL MCH 29.7 (28.0-33.3) pg MCHC 31.0 L (31.6-35.5) g/dL RDW 13.3 (11.5-14.5) % Plt Count 182 (140-400) K/mcL MPV 9.1 L (9.4-12.4) fL Immature Gran % 0.3 (0-4) % Seg Neutrophils % 62.9 % Lymphocytes % 14.2 % Monocytes % 14.8 % Eosinophils % 7.3 % Basophils % 0.5 % Neutrophils # 4.0 (1.6-8.9) K/mcL Lymphocytes # 0.9 (0.6-4.6) K/mcL Monocytes # 1.0 (0.0-1.3) K/mcL Eosinophils # 0.5 (0.0-0.6) K/mcL Basophils # 0.0 (0.0-0.2) K/mcL VBG pH 7.36 (7.32-7.42) pH Units VBG pCO2 78 H* (41-51) mmHg VBG pO2 147 H (25-50) mmHg VBG HCO3 44 H (21-27) mEq/L Sodium 125 L (136-145) mEq/L Potassium 5.1 (3.5-5.1) mEq/L Chloride 84 L (98-107) mEq/L Carbon Dioxide > 45 H* (23-29) mEq/L BUN 13 (8-23) mg/dL Creatinine 0.41 L (0.70-1.30) mg/dL Est GFR ( Amer) > 60 (> 60) Est GFR (Non-Af Amer) > 60 (> 60) BUN/Creatinine Ratio 32 H (6-26) Glucose 134 H (70-105) mg/dL Calculated Osmolality 262 L (280-300) Calcium 9.0 (8.6-10.3) mg/dL Person Notif of Misha TOURE - Radiology Data Radiology results reviewed: Yes I reviewed the patient's radiology results. Chest X-Ray 06/02/19 05:32 IMPRESSION: Suspected multifocal pneumonia within the bilateral upper lobes and right lung base. RECOMMENDATION: Suggest appropriate clinical treatment, and chest x-ray follow-up in 2-4 weeks to ensure resolution of these multifocal opacities. D/ / Jovan Mckeon MD / Jovan Mckeon MD Interpreting Provider: Jovan Mckeon MD - EKG Data EKG #1 EKG attestation: Yes I reviewed and interpreted this EKG. EKG results narrative: EKG shows normal sinus rhythm with ventricular rate of 86. No significant ST segment elevation or depression. No arrhythmia or ectopy. No significant change from prior EKG dated 11/08/2017. Critical Care Time Critical Care Time: Yes Total Critical Care Time: 35 Attestation: Critical care performed: Time is exclusive of separately billable procedures. Time includes: direct patient care, patient reassessment, coordination of patient care, interpretation of data (laboratory data, radiology data, and respiratory data), review of patient's medical records, medical consultation and documentation of patient care. Procedures included in critical care time: Procedures excluded from critical care time: Attestation Statement - Attestation Attestation: I, Adam Man MD, personally evaluated this patient and discussed their management with the resident physician. I reviewed the resident's note and agree with the documented findings, medical decision making, and plan of care. I reviewed the residents documentation and agree with the residents assessment and plan of care. I have personally had face to face time with the patient. I personally supervised and was present for the hernandez/critical portions of the following procedures completed by the resident: EKG interpretation. 68-year-old male presents to the emergency department by EMS with a complaint of shortness of breath which started yesterday morning and has gotten progressively worse over the past 24 hours. History of COPD. Patient received a nebulizer treatment per EMS in route to the ER with significant improvement. On examination patient is a well-developed well-nourished well-appearing elderly male in no acute distress. He is alert and oriented 3. There is no cyanosis or diaphoresis. Patient does appear somewhat anxious. Breath sounds are decreased bilaterally but no rales or wheezes are noted. Heart regular rate and rhythm. Abdomen is soft and nontender with normal bowel sounds. No pedal edema. EKG shows normal sinus rhythm with ventricular rate of 86. No significant ST segment elevation or depression. No arrhythmia or ectopy. No significant change from prior EKG dated 11/08/2017. Chest x-ray shows suspected multifocal pneumonia within the bilateral upper lobes and right lung base. Labs reviewed. Blood cultures obtained and patient started on IV antibiotics. The hospitalist, Dr. Pratt, was consulted and accepted admission of the patient.
--- NOTE | 2019-06-02 06:06 | Emergency Department Note ---
Disposition Clinical Impression: COPD exacerbation Pneumonia Qualifiers: Pneumonia type: due to unspecified organism Laterality: unspecified laterality Lung location: unspecified part of lung Qualified Code(s): J18.9 - Pneumonia, unspecified organism Disposition: Admitted As Inpatient Condition: Good Referrals: Layton Box MD [Primary Care Provider] - Forms: ED Satisfaction Letter Time of Disposition: 06:41 SOB HPI - General Chief Complaint: ED Shortness of Breath/Dyspnea Stated Complaint: [place]ETT Time Seen by Provider: 06/02/19 05:02 Source: patient, EMS Mode of arrival: EMS Limitations: no limitations Nursing Notes Reviewed: Yes Vital Signs Reviewed: Yes - History of Present Illness 68-year-old male history of COPD on 2.5 L home oxygen supplementation presents to the emergency department via EMS for difficulty in breathing. States over the past week and a half or so he is been having increased worker breathing. He feels like he is gasping for air. This has gradually gotten worse over the past few days. He recently saw his primary care provider who diagnosis COPD and place them on the [place] he states no significant improvement. His sputum has changed in color and is now darker than usual. He denies any fevers. He denies any chest pain. He takes his daily inhaler without any missed doses. He is been using his [facility] home more frequently and reports improvement with it. EMS did give him a breathing treatment prior to arrival which she states significant improvement. Of note he also recently was evaluated by his physician and had a CT scan of his whole body. This was performed approximately 3 days ago he says his chest was clear but there were concern for a lesion in his colon. He denies a history of blood clots. Denies history of cardiac ischemic disease. He states this kind of feels like his COPD acting up but he is not quite sure. He has not been hospitalized or on steroids recently. His last episode of his COPD exacerbation was approximately a year ag o. Pt Subjective Complaint: shortness of breath, cough - Related Data Home Medications Medication Instructions Recorded Confirmed ALPRAZolam [Xanax 0.5 MG Tablet] 0.5 mg PO BID 05/17/17 11/07/17 Oxygen 2 l NS AD 05/17/17 11/07/17 Albuterol Sulfate [Ventolin Hfa] 2 puff IH Q4H PRN 06/12/17 11/07/17 Ipratropium/Albuterol Neb [Duoneb] 3 ml IH TID 06/12/17 11/07/17 Budesonide/Formoterol 160/4.5 2 puff IH BIDR 11/07/17 11/07/17 [Symbicort 160/4.5] Ergocalciferol (VITAMIN D2) 50,000 unit PO QWEEK 11/07/17 11/07/17 [Vitamin D2] Umeclidinium [place] [Incruse 62.5 mcg IH DAILY 11/07/17 11/07/17 Ellipta] predniSONE [PredniSONE] 10 mg PO DAILY 11/07/17 11/07/17 Previous Rx's Medication Instructions Recorded Aspirin 81 mg PO DAILY tab.chew 11/13/17 Fluticasone Propionate Nasal 50 mcg NS DAILY 6 Days #1 bottle 11/13/17 [Flonase] Lisinopril [Zestril] 5 mg PO DAILY 30 Days #30 tablet 11/13/17 Loratadine [Claritin] 10 mg PO DAILY 6 Days #6 tablet 11/13/17 Guaifenesin/Dm/Pseudoephedrine 1 each PO BID #20 tablet 06/24/18 [Capmist Dm Tablet] Levofloxacin [Levaquin] 750 mg PO DAILY #10 tablet 06/24/18 PredniSONE [Deltasone] 20 mg PO DAILY #12 tablet 06/24/18 Allergies Allergy/AdvReac Type Severity Reaction Status Date / Time Penicillins [PCN] Allergy Mild Hives Verified 06/24/18 13:30 All systems ED: reviewed and negative except as stated. Review of Systems: As Per HPI Constitutional: Denies: fever, chills ENT ED: Denies: congestion Cardiovascular: Denies: chest pain Respiratory: Reports: cough, dyspnea Gastrointestinal: Denies: abdominal pain, nausea, vomiting Musculoskeletal: Denies: back pain Neurological: Denies: headache Psychiatric: Reports: anxiety Past Medical History - Past Medical History Attestation: Yes The following information was validated with the patient. Source: patient Medical history: Reports: COPD Surgical history: Reports: other (Orchiectomy 2004) Psychiatric history: Reports: anxiety - Social History Smoking Status: Former smoker Smokeless Tobacco Status: No Alcohol use: Reports: occasionally Drug use: Reports: none Physical Exam - General Limitations: no limitations General appearance: alert, anxious - Head Head exam: atraumatic, normocephalic, normal inspection - Eye Eye exam: Present: normal appearance, EOMI - ENT ENT exam: normal exam, normal oropharynx, mucous membranes moist - Chest Chest inspection: Present: normal inspection, symmetric chest wall rise - Respiratory Respiratory exam: Present: normal lung sounds bilaterally, wheezes (Minimal). Absent: respiratory distress - Cardiovascular Cardiovascular exam: Present: regular rate, normal rhythm, normal heart sounds - Abdominal Exam Abdominal exam: Present: soft, Non-Tender. Absent: tenderness, distention, guarding, rebound, rigidity - Extremities Exam Extremities exam: Present: normal inspection, full ROM. Absent: tenderness, pedal edema - Neurological Exam Neurological exam: Present: alert, oriented X3 - Psychiatric Psychiatric exam: Present: normal affect, anxious - Skin Skin exam: Present: warm, dry, intact, normal color. Absent: rash, cyanosis, diaphoresis Course Course Narrative: Patient presents for difficulty in breathing that he states his gradually worsened over the past week or so up until tonight. He does appear quite anxious on exam and admits that he has been anxious senses CT imaging results. He is not hypoxic on monitor. He is afebrile. His lungs were quite clear on my exam but he did reports improvement with breathing treatment given by EMS. I suspect he could have a component of the COPD exacerbation as he states his allergies have been getting worse. Will obtain a chest x-ray given breathing treatments check some labs. Disposition pending workup. Prednisone given. - Reevaluation(s) Reevaluation #1: Review of his labs shows that his CO2 is elevated over 45. His sodium is slightly low at 125 this is lower than it has ever been. He does not have a leukocytosis. His labs are otherwise unremarkable. His chest x-ray today show suspected multifocal pneumonia. His is also at bedside provides little more history. States that earlier tonight he woke her up saying that he was not feeling well and his breathing was bad requesting to be evaluated here. Recently he has not been able to tolerate his BiPAP at home. He also seems to be a little more somnolent not sharp as he normally is. She states this typically as when he has elevated blood gases she reports. I do suspect he seems a little more somnolent right now than before and appears a little more anxious and this could be the cause but given that he is not tolerating the BiPAP he could also be retaining his CO2. Given his severe emphysema and the suspected pneumonia will plan to admit the patient. He is requesting BiPAP at this time. Otherwise we will place him on states Rocephin and azithromycin. Oppression is COPD exacerbation and pneumonia. Time: 06:37 - Consultations Consultation #1: Spoke with on-call hospitalist elisa Goncalves to admit for COPD exacerbation and pneumonia. At this time requesting procalcitonin level. Time: 07:23 Vital Signs Temperature 99.4 F 06/02/19 04:45 Pulse Rate 83 06/02/19 04:45 Respiratory Rate 20 06/02/19 04:45 Blood Pressure 155/65 06/02/19 04:45 O2 Sat by Pulse Oximetry 100 06/02/19 04:45 Temperature 99.4 F 06/02/19 04:45 Pulse Rate 88 06/02/19 05:01 Respiratory Rate 21 06/02/19 06:46 Blood Pressure 158/66 06/02/19 05:01 O2 Sat by Pulse Oximetry 95 06/02/19 07:04 Oxygen Delivery Oxygen Delivery Nasal Cannula Shortness of Breath/Dyspnea - MDM Narrative Medical decision making narrative: Patient was discussed with my attending physician who agrees with ED management and final disposition. They independently evaluated the patient. Please refer to their attestation to this encounter for additional information. This note was generated by [employer] voice recognition software and as a result grammatical or spelling errors may occur using this program. - Medical Records Medical records reviewed: Yes I reviewed the patient's medical records. - Lab Data Lab results reviewed: Yes I reviewed the patient's lab results. Result diagrams: 06/02/19 04:51 06/02/19 04:51 Lab Results 06/02/19 06/02/19 Range/Units 04:51 04:51 WBC 6.4 (4.3-11.1) K/mcL RBC 4.08 L (4.19-5.50) M/mcL Hgb 12.1 L (12.9-16.9) g/dL Hct 39.0 (37.5-50.1) % MCV 95.6 (83.0-100.0) fL MCH 29.7 (28.0-33.3) pg MCHC 31.0 L (31.6-35.5) g/dL RDW 13.3 (11.5-14.5) % Plt Count 182 (140-400) K/mcL MPV 9.1 L (9.4-12.4) fL Immature Gran % 0.3 (0-4) % Seg Neutrophils % 62.9 % Lymphocytes % 14.2 % Monocytes % 14.8 % Eosinophils % 7.3 % Basophils % 0.5 % Neutrophils # 4.0 (1.6-8.9) K/mcL Lymphocytes # 0.9 (0.6-4.6) K/mcL Monocytes # 1.0 (0.0-1.3) K/mcL Eosinophils # 0.5 (0.0-0.6) K/mcL Basophils # 0.0 (0.0-0.2) K/mcL Sodium 125 L (136-145) mEq/L Potassium 5.1 (3.5-5.1) mEq/L Chloride 84 L (98-107) mEq/L Carbon Dioxide > 45 H* (23-29) mEq/L BUN 13 (8-23) mg/dL Creatinine 0.41 L (0.70-1.30) mg/dL Est GFR ( Amer) > 60 (> 60) Est GFR (Non-Af Amer) > 60 (> 60) BUN/Creatinine Ratio 32 H (6-26) Glucose 134 H (70-105) mg/dL Calculated Osmolality 262 L (280-300) Calcium 9.0 (8.6-10.3) mg/dL - Radiology Data Radiology results reviewed: Yes I reviewed the patient's radiology results. Chest X-Ray 06/02/19 05:32 IMPRESSION: Suspected multifocal pneumonia within the bilateral upper lobes and right lung base. RECOMMENDATION: Suggest appropriate clinical treatment, and chest x-ray follow-up in 2-4 weeks to ensure resolution of these multifocal opacities. D/ / Jovan Mckeon MD / Jovan Mckeon MD Interpreting Provider: Jovan Mckeon MD - EKG Data EKG attestation: Yes I reviewed and interpreted this EKG. EKG results narrative: EKG performed 0456 normal sinus rhythm 86 beats per minute with right axis deviation and incomplete right bundle branch block, ST elevation noted in V3 before possible early repolarization without any ST depression or reciprocal change. Compared to prior EKG performed 11/08/2017 shows similar consistent findings. No acute ischemic changes.
[2019-06-02] MEDS ORDERED: *HR* LORazepam 2 MG/ML VIAL IVP ONE (06:11)
[2019-06-02 06:20] LABS: BUN/Creatinine Ratio 32 (6-26); Blood Urea Nitrogen 13 mg/dL (8-23); Carbon Dioxide > 45 mEq/L (23-29); Chloride 84 mEq/L (98-107); Glucose 134 mg/dL (70-105); Osmolality,Calculated 262 (280-300); Potassium 5.1 mEq/L (3.5-5.1); Sodium 125 mEq/L (136-145); eGFR For African Americans > 60 (> 60); eGFR For Non-African Americans > 60 (> 60)
[2019-06-02] MEDS ORDERED: cefTRIAXone 1,000 MG in Water for inj. (sterile) 10 ML IVP ONE (06:30)
[2019-06-02] MEDS ORDERED: Azithromycin 500 MG in 0.9 % Sodium Chloride 250 ML IVPB ONE (06:30)
[2019-06-02 07:25] LABS: VBG HCO3 44 mEq/L (21-27); VBG PCO2 78 mmHg (41-51); VBG PH 7.36 pH Units (7.32-7.42); VBG PO2 147 mmHg (25-50)
[2019-06-02] MEDS ORDERED: Ondansetron 4 MG/2 ML VIAL IVP PRN (08:59)
[2019-06-02] MEDS ORDERED: Acetaminophen 325 MG TABLET PO PRN (08:59)
[2019-06-02] MEDS ORDERED: Naloxone 0.4 MG/ML INJ IVP PRN (08:59)
--- NOTE | 2019-06-02 09:17 | Internal Med History&Physical ---
Date of Encounter: 06/02/19 Time of Encounter: 08:45 Internal Medicine - H&P: HPI Admitted From: Emergency Dept Plans for Post Hospital Care: Home History of present illness: Mr. Schmidt is a 68 year old male history of advanced COPD status post lung volume reduction surgery of the left lung, chronic hypoxic/hypercapnic respiratory failure on 2.5 L oxygen with baseline hypercapnia in the 50s who presents to the ED with complaints of progressive dyspnea. According to Amelia who can be reached at cell phone [phone] patient is not really compliant with his BiPAP therapy. Patient attributed to intolerance from the positive ventilation. He is also complaining of bilateral lower extremity weakness but denies any recent falls. He steadily recently saw his primary care physician who initiated oral antibiotic therapy which helped improve his initial symptoms of cough with productive sputum. He also underwent a whole-body CT sca n and there is concern for possible chronic malignancy. He admits to having had prior colonoscopies but could not remember the last time. His complaint of chronic constipation but denies any melena hematochezia. Past Med Surg Social Fam HX - Past Medical History Medical history: COPD, other (Chronic hypoxic hypercapnic respiratory failure) Additional medical history: home o2 @ [facility] Psychiatric history: anxiety - Past Surgical History Surgical History: other (Orchiectomy 2003) Additional surgical history: Bronchiectomy in 2003/chemo afters - Social History Smoking Status: Former smoker Smokeless Tobacco Status: No Alcohol use: occasionally Drug use: none - Family History Brother Hx Family Cancer: Yes (Bladder cancer) Internal Medicine - H&P: Meds ALPRAZolam [Xanax 0.5 MG Tablet] 0.5 mg PO BID 05/17/17 [History] Albuterol Sulfate [Ventolin Hfa] 2 puff IH Q4H PRN 06/12/17 [History] Ipratropium/Albuterol Neb [Duoneb] 3 ml IH QID 06/12/17 [History] Budesonide/Formoterol 160/4.5 [Symbicort 160/4.5] 2 puff IH BIDR 11/07/17 [History] Umeclidinium [place] [Incruse Ellipta] 1 puff IH DAILY 11/07/17 [History] Aspirin 81 mg PO DAILY tab.chew 03/12/18 [Rx] Clarithromycin [Biaxin] 500 mg PO BID 06/02/19 [History] Fluticasone/Umeclidin/Vilanter [Trelegy Ellipta 100-62.5-25] 1 puff IH DAILY 06/02/19 [History] Ipratropium [place] 2 spray NS DAILY 06/02/19 [History] Levocetirizine Dihydrochloride [Allergy Relief (Xyzal)] 5 mg PO DAILY 06/02/19 [History] Mirtazapine [Remeron] 15 mg PO Q48H 06/02/19 [History] Tamsulosin HCl 0.4 mg PO DAILY 06/02/19 [History] Allergy/AdvReac Type Severity Reaction Status Date / Time Penicillins [PCN] Allergy Mild Hives Verified 06/24/18 13:30 All Systems PM: GENERAL: Denies fever, chills, reports generalized fatigue and weakness DERMATOLOGIC: Denies itch, rash or lesions HEENT: Denies headache, blurriness, diplopia or decreased visual acuity, ear pain, tinnitus, rhinorrhea, sinus tenderness or sore throat RESPIRATORY: Reports SOB, cough, denies hemoptysis or pleuritic chest pain CARDIOVASCULAR: Denies chest pain, LE edema, palpitation or syncope GASTRO INTESTINAL: Denies cramps, nausea/vomiting, diarrhea reports constipation MUSCULOSKELATAL: Denies muscle pain/weakness, joint tenderness/pain or swelling PSYCH: Denies worsening anxiety, or depression NEURO: Denies vertigo, dizziness, or ataxia GENITURINARY: Denies dysuria, nocturia or urinary incontinence - Constitutional Vitals: Temp Pulse Resp BP Pulse Ox 98.3 F 85 24 145/65 97 06/02/19 08:18 06/02/19 08:18 06/02/19 08:18 06/02/19 08:18 06/02/19 08:18 Exam: GENERAL: A cachectic-looking male, appears to be tolerating his BiPAP mask A&O x3, pleasant and conversant, at his bedside. No conversational dyspnea SKIN: Jerome warm dry No skin lesions or rashes, non-jaundiced EYES: EOMI, PERRLA, no sclera icterus HENT: Head atraumatic, no facial asymmetry, frontal and maxillary sinus non- tender, normal hearing, oropharynx and mucosa moist and without any exudates NECK: No cervical lymphadenopathy, trachea midline, thyroid is palpable does not appear enlarged LUNGS: Pectus carinatum noted, overall diminished breath sounds with diffuse wheezing and crackles but non labored respirations HEART: Normal rate and rhythm, no murmurs or rubs ABDOMEN: soft, non-tender, non-distended, bowel sounds x 4 normoactive EXTRMITIES: No LE asymmetry, No LE edema, pedal pulses 1+ and radial pulses 2 + and equal bilaterally NEURO: Speech and comprehension appears intact. PSYCH: Cooperative, non- anxious or irritable, mood and affect is appropriate Internal Med - H&P Results - Labs CBC & Chem 7: 06/02/19 04:51 06/02/19 10:53 Labs: Short CBC 06/02/19 Range/Units 04:51 WBC 6.4 (4.3-11.1) K/mcL Hgb 12.1 L (12.9-16.9) g/dL Hct 39.0 (37.5-50.1) % Plt Count 182 (140-400) K/mcL Neutrophils # 4.0 (1.6-8.9) K/mcL BMP 06/02/19 04:51 Sodium 125 L Potassium 5.1 Chloride 84 L Carbon Dioxide > 45 H* BUN 13 Creatinine 0.41 L Glucose 134 H Calcium 9.0 - ABG Interpretation ABG results: 06/02/19 07:20 VBG pH 7.36 VBG pCO2 78 H* VBG pO2 147 H VBG HCO3 44 H - Impressions ITS Impressions Chest X-Ray 06/02/19 05:32 IMPRESSION: Suspected multifocal pneumonia within the bilateral upper lobes and right lung base. RECOMMENDATION: Suggest appropriate clinical treatment, and chest x-ray follow-up in 2-4 weeks to ensure resolution of these multifocal opacities. D/ / Jovan Mckeon MD / Jovan Mckeon MD Interpreting Provider: Jovan Mckeon MD - Assessment and Plan (1) Acute on chronic respiratory failure with hypoxia and hypercapnia Current Visit: Yes Status: Acute Assessment and plan: VBG does reveal hypercapnia 70, his stated that patient normally runs baseline in the mid 50s (2) COPD exacerbation Current Visit: Yes Status: Acute Assessment and plan: His pro-calcitonin was negative. Chest x-ray likely revelation of advanced COPD status post lung volume reduction surgery is afebrile with no leukocytosis D uoNeb as needed hold home inhalers, methylpred for two days and then transitioned to oral prednisone 40 mg he will benefit from a long prednisone taper to prevent frequent hospitalization (3) HTN (hypertension) Current Visit: Yes Status: Acute Assessment and plan: BPs elevated would resume his home meds Qualifiers: Hypertension type: essential hypertension Qualified Code(s): I10 - Essential (primary) hypertension (4) Chronic hyponatremia Current Visit: Yes Status: Acute Assessment and plan: Secondary to poor intake. Appears euvolemic dates back to 2018 no drug causes TSH is within normal limits otherwise asymptomatic repeat BMP in the morning anticipates to improve as his oral intake improves (5) DVT prophylaxis Current Visit: Yes Status: Acute Assessment and plan: Heparin per protocol - Time Spent With Patient Total time spent is greater than 50% in coordination of care (as documented) at patient's floor/unit and/or counseling patient:
[2019-06-02] MEDS: Ipratropium/Albuterol Neb 3 ML IH SCH ×3 (11:08→22:21)
[2019-06-02 11:41] LABS: BUN/Creatinine Ratio 28 (6-26); Blood Urea Nitrogen 10 mg/dL (8-23); Carbon Dioxide 42 mEq/L (23-29); Chloride 83 mEq/L (98-107); Glucose 141 mg/dL (70-105); Osmolality,Calculated 259 (280-300); Potassium 5.1 mEq/L (3.5-5.1); Sodium 124 mEq/L (136-145); eGFR For African Americans > 60 (> 60); eGFR For Non-African Americans > 60 (> 60)
[2019-06-02] MEDS ORDERED: ALPRAZolam 0.5 MG TABLET PO ONE (12:37)
[2019-06-02 15:40] LABS: BUN/Creatinine Ratio 24 (6-26); Blood Urea Nitrogen 8 mg/dL (8-23); Calcium 9.1 mg/dL (8.6-10.3); Carbon Dioxide 40 mEq/L (23-29); Chloride 86 mEq/L (98-107); Glucose 146 mg/dL (70-105); Osmolality,Calculated 259 (280-300); Sodium 124 mEq/L (136-145); eGFR For African Americans > 60 (> 60); eGFR For Non-African Americans > 60 (> 60)
[2019-06-02 16:52] LABS: VBG HCO3 41 mEq/L (21-27); VBG PCO2 74 mmHg (41-51); VBG PH 7.36 pH Units (7.32-7.42); VBG PO2 225 mmHg (25-50)
[2019-06-02] MEDS: ALPRAZolam 0.5 MG TABLET PO SCH (21:07)
[2019-06-02] MEDS: *HR* Heparin 5,000 UNIT/ML VIAL SQ SCH (21:07)
[2019-06-02 21:48] LABS: BUN/Creatinine Ratio 25 (6-26); Blood Urea Nitrogen 8 mg/dL (8-23); Calcium 9.1 mg/dL (8.6-10.3); Carbon Dioxide 43 mEq/L (23-29); Chloride 91 mEq/L (98-107); Glucose 128 mg/dL (70-105); Osmolality,Calculated 268 (280-300); Potassium 4.7 mEq/L (3.5-5.1); Sodium 129 mEq/L (136-145); eGFR For African Americans > 60 (> 60); eGFR For Non-African Americans > 60 (> 60)
[2019-06-03] MEDS: Ipratropium/Albuterol Neb 3 ML IH SCH ×4 (04:16→22:17)
[2019-06-03 05:20] LABS: Hematocrit 36.5 % (37.5-50.1); Hemoglobin 11.5 g/dL (12.9-16.9); Mean Corpuscular HGB Conc 31.5 g/dL (31.6-35.5); Mean Corpuscular Hemoglobin 29.6 pg (28.0-33.3); Mean Corpuscular Volume 94.1 fL (83.0-100.0); Mean Platelet Volume 8.9 fL (9.4-12.4); Platelet Count 167 K/mcL (140-400); Red Blood Count 3.88 M/mcL (4.19-5.50); Red Cell Distribution Width 13.4 % (11.5-14.5); White Blood Count 5.1 K/mcL (4.3-11.1)
[2019-06-03] MEDS: *HR* Heparin 5,000 UNIT/ML VIAL SQ SCH ×3 (05:31→20:56)
[2019-06-03 05:48] LABS: BUN/Creatinine Ratio 29 (6-26); Blood Urea Nitrogen 11 mg/dL (8-23); Calcium 9.1 mg/dL (8.6-10.3); Carbon Dioxide 45 mEq/L (23-29); Chloride 89 mEq/L (98-107); Glucose 111 mg/dL (70-105); Magnesium 2.2 mg/dL (1.6-2.6); Osmolality,Calculated 278 (280-300); Potassium 4.3 mEq/L (3.5-5.1); Sodium 134 mEq/L (136-145); eGFR For African Americans > 60 (> 60); eGFR For Non-African Americans > 60 (> 60)
[2019-06-03 06:24] LABS: Eosinophils # 0.2 K/mcL (0.0-0.6); Lymphocytes # 1.8 K/mcL (0.6-4.6); Monocytes # 0.5 K/mcL (0.0-1.3); Neutrophils # 2.6 K/mcL (1.6-8.9); Platelet Estimate Normal (Normal)
[2019-06-03 06:25] LABS: Reactive Lymphocytes Present (Not Present)
[2019-06-03] MEDS ORDERED: MethylPREDNISolone 40 MG/ML VIAL IVP SCH (09:00)
[2019-06-03] MEDS: Aspirin 81 MG TAB.CHEW PO SCH (09:43)
[2019-06-03] MEDS: Loratadine 10 MG TABLET PO SCH (09:43)
[2019-06-03] MEDS: ALPRAZolam 0.5 MG TABLET PO SCH ×2 (09:44→20:56)
[2019-06-03] MEDS ORDERED: Ipratropium/Albuterol Neb 3 ML IH PRN (10:26)
[2019-06-03] MEDS: levoFLOXacin 750 MG/150 ML 750 MG/150 ML BAG IVPB SCH (11:38)
[2019-06-03] MEDS: Budesonide/Formoterol 80/4.5 1 PUFF INH IH SCH ×2 (12:52→14:51)
--- NOTE | 2019-06-03 16:44 | Internal Med Progress Note ---
Hospitalist Progress Note - Encounter Date of Encounter: 06/03/19 Time of Encounter: 11:00 - Subjective Interval History: Patient was seen at bedside. His respiratory status is still the same as yesterday. Is currently comfortable on BiPAP. Denies chest pain. Denies fever, chills, rigors. No other events overnight. - Exam Vitals: Temp Pulse Resp BP Pulse Ox 98.2 F 98 22 133/58 97 06/03/19 15:23 06/03/19 15:23 06/03/19 15:23 06/03/19 15:23 06/03/19 15:23 Exam: General: Alert and oriented, moderate physical distress, able to follow co mmands. HEENT: No thyromegaly, no lymphadenopathy, no discharge. Eyes: No discharge. Normal conjuctiva, no icterus Respiratory: Diminished breath sounds with diffuse wheezing, nonlabored respiration on BiPAP.. CVS: Normal heart sounds, no murmurs, regular rhthm, no edema Extremities: No peripheral edema, peripheral pulses intact. Lymph nodes: No lymphadenopathy Gastrointestinal: Soft, nontender abdomen, normal abdominal sounds. No distention noted. Genitourinary: No paravertebral tenderness. Skin: No rash, ulcers or wound. Neurological: Alert and oriented. No focal deficits. Cranial nerves II-XII intact. - Assessment and Plan (1) Acute on chronic respiratory failure with hypoxia and hypercapnia Current Visit: Yes Status: Acute Assessment and Plan: VBG does reveal hypercapnia 70, his stated that patient normally runs baseline in the mid 50s Repeat VBG with a similar findings. Patient is currently on BiPAP. Repeat VBG tomorrow morning. (2) COPD exacerbation Current Visit: Yes Status: Acute Assessment and Plan: His pro-calcitonin was negative. Chest x-ray likely revelation of advanced COPD status post lung volume reduction surgery Repeat chest x-ray was done today which again showed the similar findings without any new infiltrates. We will add levofloxacin considering the COPD exacerbation. Increase the dose of steroids because the patient is improving very slowly. Continue breathing treatments. (3) HTN (hypertension) Current Visit: Yes Status: Acute Assessment and Plan: Blood pressure within reasonable limits. Continue home meds. (4) Chronic hyponatremia Current Visit: Yes Status: Acute Assessment and Plan: Sodium of 134 today. Likely because of hypovolemia. Continue to monitor. Nutritional onboard. (5) DVT prophylaxis Current Visit: Yes Status: Acute Assessment and Plan: Heparin per protocol - Time Spent with Patient Total time spent is greater than 50% in coordination of care (as documented) at patient's floor/unit and/or counseling patient: Internal Medicine: Result - Labs CBC & Chem 7: 06/03/19 05:05 06/03/19 05:05 Labs: Short CBC 06/03/19 Range/Units 05:05 WBC 5.1 (4.3-11.1) K/mcL Hgb 11.5 L (12.9-16.9) g/dL Hct 36.5 L (37.5-50.1) % Plt Count 167 (140-400) K/mcL Neutrophils # 2.6 (1.6-8.9) K/mcL BMP 06/02/19 06/03/19 20:58 05:05 Sodium 129 L 134 L Potassium 4.7 4.3 Chloride 91 L 89 L Carbon Dioxide 43 H* 45 H* BUN 8 11 Creatinine 0.32 L 0.38 L Glucose 128 H 111 H Calcium 9.1 9.1 - Impressions Impressions Chest X-Ray 06/02/19 05:32 IMPRESSION: Suspected multifocal pneumonia within the bilateral upper lobes and right lung base. RECOMMENDATION: Suggest appropriate clinical treatment, and chest x-ray follow-up in 2-4 weeks to ensure resolution of these multifocal opacities. D/ / 06/02/2019 09:36:24 Jovan Mckeon MD / Carley Vasquez Interpreting Provider: Jovan Mckeon MD Chest X-Ray 06/03/19 14:32 IMPRESSION: 1. Improved bilateral lung infiltrates since the previous study. 2. Suspected trace bilateral pleural effusions. 3. Emphysema. D/ / 06/03/2019 14:55:32 Dawit Stevens MD / karis Interpreting Provider: Dawit Stevens MD Consult Discharge Plan - Plan Referrals: Layton Box MD [Primary Care Provider] - (3) HTN (hypertension) Qualifiers: Hypertension type: essential hypertension Qualified Code(s): I10 - Essential (primary) hypertension
--- NOTE | 2019-06-03 16:47 | Electrocardiograph Report ---
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
[2019-06-03] MEDS: MethylPREDNISolone 40 MG/ML VIAL IVP SCH (20:56)
[2019-06-03] MEDS ORDERED: Mirtazapine 15 MG TABLET PO SCH (21:00)
[2019-06-03] MEDS: Budesonide/Formoterol 160/4.5 1 PUFF INH IH SCH (22:17)
[2019-06-04] MEDS: Ipratropium/Albuterol Neb 3 ML IH SCH ×4 (03:49→21:46)
[2019-06-04] MEDS: *HR* Heparin 5,000 UNIT/ML VIAL SQ SCH ×3 (05:13→21:43)
[2019-06-04 06:37] LABS: Basophils % 0.2 %; Hematocrit 39.2 % (37.5-50.1); Hemoglobin 12.5 g/dL (12.9-16.9); Immature Granulocytes % 0.5 % (0-4); Lymphocytes # 0.5 K/mcL (0.6-4.6); Lymphocytes % 8.5 %; Mean Corpuscular HGB Conc 31.9 g/dL (31.6-35.5); Mean Corpuscular Hemoglobin 29.3 pg (28.0-33.3); Mean Platelet Volume 9.7 fL (9.4-12.4); Monocytes # 0.2 K/mcL (0.0-1.3); Platelet Count 206 K/mcL (140-400); Red Blood Count 4.26 M/mcL (4.19-5.50); Red Cell Distribution Width 13.4 % (11.5-14.5); Segmented Neutrophils % 86.8 %; White Blood Count 5.8 K/mcL (4.3-11.1)
[2019-06-04 07:00] LABS: BUN/Creatinine Ratio 33 (6-26); Blood Urea Nitrogen 12 mg/dL (8-23); Calcium 9.3 mg/dL (8.6-10.3); Carbon Dioxide 43 mEq/L (23-29); Chloride 89 mEq/L (98-107); Glucose 138 mg/dL (70-105); Osmolality,Calculated 282 (280-300); Potassium 4.7 mEq/L (3.5-5.1); Sodium 135 mEq/L (136-145); eGFR For African Americans > 60 (> 60); eGFR For Non-African Americans > 60 (> 60)
[2019-06-04 07:16] LABS: VBG HCO3 47 mEq/L (21-27); VBG PCO2 89 mmHg (41-51); VBG PH 7.33 pH Units (7.32-7.42); VBG PO2 53 mmHg (25-50)
[2019-06-04] MEDS ORDERED: NON-FORMULARY MEDICATION 1 EACH EACH (Levocetirizine Dihydrochloride [Allergy Relief (Xyza PO SCH (09:00)
[2019-06-04] MEDS ORDERED: Saline Nasal Spray 44 ML BOTTLE NS PRN (09:09)
[2019-06-04] MEDS: levoFLOXacin 750 MG/150 ML 750 MG/150 ML BAG IVPB SCH (09:10)
[2019-06-04] MEDS: Loratadine 10 MG TABLET PO SCH (09:10)
[2019-06-04] MEDS: Aspirin 81 MG TAB.CHEW PO SCH (09:10)
[2019-06-04] MEDS: ALPRAZolam 0.5 MG TABLET PO SCH ×2 (09:11→20:33)
[2019-06-04] MEDS: MethylPREDNISolone 40 MG/ML VIAL IVP SCH ×3 (09:11→23:44)
--- NOTE | 2019-06-04 09:26 | Pulmonology Consult Note ---
<Juan Manuel Girard - Last Filed: 06/04/19 13:05> Date of Encounter: 06/04/19 Time of Encounter: 09:00 (estimated) Assessment and Plan (1) Acute on chronic respiratory failure with hypoxia and hypercapnia Current Visit: Yes Status: Acute (2) COPD exacerbation Current Visit: Yes Status: Acute (3) Pneumonia Current Visit: Yes Status: Acute Qualifiers: Pneumonia type: due to unspecified organism Laterality: unspecified laterality Lung location: unspecified part of lung Qualified Code(s): J18.9 - Pneumonia, unspecified organism (4) Hyponatremia Current Visit: Yes Status: Acute History of Present Illness History of present illness: Includes patient-provided information and information gathered from EMR: Course: Mr. Schmidt is a 68-year-old male who presented to the ED on 06/02 for shortness of breath. Past medical history: Testicular cancer, COPD, chronic bronchitis, emphysema, benign prostatic hypertrophy, epidermal inclusion cyst, rhinitis, anxiety. Early vitals significant for requirements of BiPAP. Early labs significant for: Anemia at 12.1 which is close to baseline. VBG showing hypercapnia at 74, bicarbonate elevation at 41. Hyponatremia at 125. CXR read as: Suspected Bilateral upper lobe and right lung base multifocal pneumonia. Patient was admitted for #acute on chronic respiratory failure, #COPD exacerbation, #hypertension, #chronic hyponatremia. Pulmonology was consulted on 06/04 for persistent hypercapnia CC: "Breathing" History of present illness: Patient presents for shortness of breath acutely worsened over duration of around 3 hours on Monday. He was treated last Monday for upper respiratory like symptoms including increased mucus production and purulence. It was difficult for the patient to assess the source of this purulent mucus as he noted excretion from both nose and mouth. The medications (which included antibiotics) given to him "dried "him up, however breathing became more difficult. He reached the point of "gasping" for air and realized that he needed to go to the emergency department at that time. Reports being around 70% of his baseline. Reports baseline orthopnea since "forever". No PND. Ankle swelling intermittently that has progressed within the past 1 or 2 months. Denies known history of blood clots in legs or lungs. Denies recent immobility or surgery within the past 3 months. Reports significant lung issues since 2014. Also reports lung issues beginning around 2004. At his best baseline he can mow his yard on a riding mower. 2.5 L on home oxygen delivery device. When he uses his portable oxygen he uses 3 L. BiPAP at night. Lung reduction surgery on the left side by [facility] in January. They d id not reduce the right side secondary to excess scar tissue per the patient. Follows Dr. Alanis at [facility]. Reports previous exacerbation around November of this year. Reports around 2 exacerbations yearly. One pack per day smoker for around 47 years. Quit 5 years ago. 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 Exposure to cardboard dust. Glue. Various Vapors. Cannot find PFTs on record. He states that he gets these at [facility]. PMH: Testicular cancer in 2003 treated with left orchiectomy and 12 weeks of chemotherapy, 2 weeks on and 1 week off. No radiation. Reports no treatment since that time. Others as above. Medications: Ventolin. Trelegy. Ipratropium nebulizer. Home oxygen. tamsulosin. xanax usually bid. albuterol bromide nasal spray. saline nasal spray. Past Med Surg Social Fam HX - Past Medical History Medical history: COPD, other Additional medical history: Enlarged prostate, testicular cancer, 9 weeks of chemo. Psychiatric history: anxiety, depression - Past Surgical History Surgical History: other (Orchiectomy 2003) Additional surgical history: Bronchiectomy in 2003/chemo after, orchiectomy - Social History Smoking Status: Former smoker Smokeless Tobacco Status: No Alcohol use: occasionally Drug use: none - Family History Brother Age: 70 Living Status: Still Living Hx Family Cardiac Disorders: Yes (Nephrectomy) Hx Family Cancer: Yes (Bladder cancer) Father Living Status: Age at : 84 Cause of : Lung disease Hx Family Respiratory Disorders: Yes (Unknown lung disease) Medications and Allergies ALPRAZolam [Xanax 0.5 MG Tablet] 0.5 mg PO BID 05/17/17 [History] Albuterol Sulfate [Ventolin Hfa] 2 puff IH Q4H PRN 06/12/17 [History] Ipratropium/Albuterol Neb [Duoneb] 3 ml IH QID 06/12/17 [History] Budesonide/Formoterol 160/4.5 [Symbicort 160/4.5] 2 puff IH BIDR 11/07/17 [History] Umeclidinium [place] [Incruse Ellipta] 1 puff IH DAILY 11/07/17 [History] Aspirin 81 mg PO DAILY tab.chew 11/13/17 [Rx] Clarithromycin [Biaxin] 500 mg PO BID 06/02/19 [History] Fluticasone/Umeclidin/[place] [Trelegy Ellipta 100-62.5-25] 1 puff IH DAILY 06/02/19 [History] Ipratropium [place] 2 spray NS DAILY 06/02/19 [History] Levocetirizine Dihydrochloride [Allergy Relief (Xyzal)] 5 mg PO DAILY 06/02/19 [History] Mirtazapine [Remeron] 15 mg PO Q48H 06/02/19 [History] Tamsulosin HCl 0.4 mg PO DAILY 06/02/19 [History] Allergy/AdvReac Type Severity Reaction Status Date / Time Penicillins [PCN] Allergy Mild Hives Verified 06/24/18 13:30 All Systems: The remainder of the systems were reviewed and are negative Review of Systems: Admits: Significant temperature fluctuations. Occasional heart flutters which may be PVCs as well as a sensation that the patient cannot describe other than a "sharp hunger pain" and this pain or sensation is not new for him. Weakness. Dyspnea. Gaseous abdominal pain. Denies: Significant weight loss, hemoptysis, diarrhea, hematochezia, hematuria, syncope. *some information in note auto-populated* Physical Examination Vital Signs: Vital Signs, Last 4 Hours Temp Pulse Resp BP Pulse Ox 06/04/19 07:12 98.4 F 97 18 153/82 96 Objective PE Gen.: Middle-aged male. Reclining in bed Skin: Erythematous appearance of facies and upper chest wall. Good turgor. Eyes: Moist. Hyperemic. Neck: No obvious JVD or hepatojugular reflux. No carotid bruits heard. Cardiac: S1, S2. No obvious murmurs gallops rubs Respiratory: Significantly decreased respiratory effort worse on the left. Crackles and wheezing of the right lung posteriorly. Crackles bilateral upper anterior gomez. Extremities: Clubbing. Capillary refill less than 2 seconds bilateral upper extremities. No lower extremity edema at least on the right. Neuro: No obvious tremor Psych: Appropriate mood and behavior. Answers questions coherently. A/P #Acute on chronic respiratory failure with hypercapnia and hypoxia Consider decompensation from baseline COPD in the setting of recent suspected URI-like illness Increased dyspnea and mucus production recently Wells score for PE: 0 VBG CO2: 74 on 06/02 > 89 on 06/04 05/[address] read as: Emphysema -chronic hypercapnia -treatment of suspected etiologies as below #COPD exacerbation Consider worsened baseline of this chronic condition cannot find PFT's on file. done at [facility]. CT scan showing panacinar emphysema. history of chronic bronchitis. -ICS/LABA -MARIAM/MICHELLE -theophylline -increase IV steroid to 80mg q8 #Pneumonia suspected CXR 06/02 read as: Suspected Bilateral upper lobe and right lung base multifocal pneumonia -covered with levofloxacin #Hyponatremia -Per primary Results - Laboratory Findings CBC and BMP: 06/04/19 04:36 06/04/19 04:36 Abnormal lab findings: Abnormal lab results RBC 3.88 M/mcL (4.19-5.50) L 06/03/19 05:05 Hgb 12.5 g/dL (12.9-16.9) L 06/04/19 04:36 Hct 36.5 % (37.5-50.1) L 06/03/19 05:05 MCHC 31.5 g/dL (31.6-35.5) L 06/03/19 05:05 MPV 8.9 fL (9.4-12.4) L 06/03/19 05:05 Lymphocytes # 0.5 K/mcL (0.6-4.6) L 06/04/19 04:36 Reactive Lymphocytes Present (Not Present) A 06/03/19 05:05 VBG pCO2 89 mmHg (41-51) H* 06/04/19 07:09 VBG pO2 53 mmHg (25-50) H 06/04/19 07:09 VBG HCO3 47 mEq/L (21-27) H 06/04/19 07:09 Sodium 135 mEq/L (136-145) L 06/04/19 04:36 Chloride 89 mEq/L (98-107) L 06/04/19 04:36 Carbon Dioxide 43 mEq/L (23-29) H* 06/04/19 04:36 Creatinine 0.36 mg/dL (0.70-1.30) L 06/04/19 04:36 BUN/Creatinine Ratio 33 (6-26) H 06/04/19 04:36 Glucose 138 mg/dL (70-105) H 06/04/19 04:36 Calculated Osmolality 278 (280-300) L 06/03/19 05:05 - Microbiology Findings Microbiology Findings: Microbiology, Last 48 Hours 06/02/19 07:08 Blood Culture - Preliminary Peripheral Venipuncture Culture is incubating and being continuously monitored for growth. Final report to follow. 06/02/19 07:08 Blood Culture - Preliminary Peripheral Venipuncture Culture is incubating and being continuously monitored for growth. Final report to follow. - Clinical Findings Intake & Output: Intake & Output 06/03/19 06/04/19 06/04/19 23:59 07:59 15:59 Intake Total 300 / 420 120 / 420 Output Total 400 / 865 300 / 300 Balance -400 / -415 0 / 120 120 / 120 Weight 63 kg Consult Discharge Plan - Plan Referrals: Layton Box MD [Primary Care Provider] - <Torrey Miles - Last Filed: 06/04/19 16:40> Date of Encounter: 06/04/19 All Systems: The remainder of the systems were reviewed and are negative Results - Laboratory Findings CBC and BMP: 06/04/19 04:36 06/04/19 04:36 Abnormal lab findings: Abnormal lab results RBC 3.88 M/mcL (4.19-5.50) L 06/03/19 05:05 Hgb 12.5 g/dL (12.9-16.9) L 06/04/19 04:36 Hct 36.5 % (37.5-50.1) L 06/03/19 05:05 MCHC 31.5 g/dL (31.6-35.5) L 06/03/19 05:05 MPV 8.9 fL (9.4-12.4) L 06/03/19 05:05 Lymphocytes # 0.5 K/mcL (0.6-4.6) L 06/04/19 04:36 Reactive Lymphocytes Present (Not Present) A 06/03/19 05:05 VBG pCO2 89 mmHg (41-51) H* 06/04/19 07:09 VBG pO2 53 mmHg (25-50) H 06/04/19 07:09 VBG HCO3 47 mEq/L (21-27) H 06/04/19 07:09 Sodium 135 mEq/L (136-145) L 06/04/19 04:36 Chloride 89 mEq/L (98-107) L 06/04/19 04:36 Carbon Dioxide 43 mEq/L (23-29) H* 06/04/19 04:36 Creatinine 0.36 mg/dL (0.70-1.30) L 06/04/19 04:36 BUN/Creatinine Ratio 33 (6-26) H 06/04/19 04:36 Glucose 138 mg/dL (70-105) H 06/04/19 04:36 Calculated Osmolality 278 (280-300) L 06/03/19 05:05 - Clinical Findings Intake & Output: Intake & Output 06/04/19 06/04/19 06/04/19 07:59 15:59 23:59 Intake Total 300 / 810 510 / 810 Output Total 300 / 300 Balance 0 / 510 510 / 510 Weight 63 kg - Attending Attestation I examined this patient and my medical decision-making was reviewed with the Resident Physician. I agree with the documented findings, disposition and treatment plan as described except to the extent set forth below. Patient seen and examined. Labs, radiology, chart personally reviewed. 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 Patient has extensive history of pulmonary disease and he follows up at [facility] status post left lung volume reduction surgery and he stated that his right side was opened up but due to scarring was not able to do anything. Patient started to have more sinus disease recently and has been having more shortness of breath. We will increase systemic steroid and he is on appropriate bronchodilator at this time. I do not think patient has pneumonia and he is covered with empiric antibiotic for suspected COPD exacerbation. I will add low-dose theophylline since patient has an advanced disease. Patient has pulmonary function test at [facility] recently and he stated his FEV1 is in the severe range. 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 Overall poor and he might elect palliative care.
[2019-06-04] MEDS: Budesonide/Formoterol 160/4.5 1 PUFF INH IH SCH ×2 (10:33→21:46)
--- NOTE | 2019-06-04 14:06 | Internal Med Progress Note ---
Hospitalist Progress Note - Encounter Date of Encounter: 06/04/19 Time of Encounter: 11:00 - Subjective Interval History: Patient seen at bedside. Feeling almost the same as yesterday. No acute events overnight. thinks that the patient is a little bit more confused. VBG showed increased hypercapnia. - Exam Vitals: Temp Pulse Resp BP Pulse Ox 98.4 F 97 20 131/67 98 06/04/19 07:12 06/04/19 11:47 06/04/19 11:47 06/04/19 11:47 06/04/19 11:47 Exam: General: Alert and oriented, moderate physical distress, able to follow commands. HEENT: No thyromegaly, no lymphadenopathy, no discharge. Eyes: No discharge. Normal conjuctiva, no icterus Respiratory: Diminished breath sounds with diffuse wheezing, nonlabored respiration on BiPAP.. CVS: Normal heart sounds, no murmurs, regular rhthm, no edema Gastrointestinal: Soft, nontender abdomen, normal abdominal sounds. No distention noted. Genitourinary: No paravertebral tenderness. Skin: No rash, ulcers or wound. Neurological: Alert and oriented. No focal deficits. Cranial nerves II-XII intact. - Assessment and Plan (1) Acute on chronic respiratory failure with hypoxia and hypercapnia Current Visit: Yes Status: Acute Assessment and Plan: VBG does reveal hypercapnia in 70s at the time of admission, repeat VBG showed PCO2 of 89, his stated that patient normally runs baseline in the mid 50s Patient is currently on BiPAP. COntinue the current management, continue to manaage COPD Pulmonolgoy consult for the recomemndations. (2) COPD exacerbation Current Visit: Yes Status: Acute Assessment and Plan: His pro-calcitonin was negative. Chest x-ray likely revelation of advanced COPD status post lung volume reduction surgery Repeat chest x-ray was done today which again showed the similar findings without any new infiltrates. We will add levofloxacin considering the COPD exacerbation. Dose of sterodis further increased by the pulmonology. Continue breathing treatments. Continue inhalers (3) HTN (hypertension) Current Visit: Yes Status: Acute Assessment and Plan: Blood pressure within reasonable limits. Continue home meds. (4) Chronic hyponatremia Current Visit: Yes Status: Acute Assessment and Plan: Sodium of 135 today, improved from 129 at admission. Continue to monitor. Agree wiht the fluid restriction. Nutritional onboard. (5) DVT prophylaxis Current Visit: Yes Status: Acute Assessment and Plan: Heparin per protocol - Time Spent with Patient Total time spent is greater than 50% in coordination of care (as documented) at patient's floor/unit and/or counseling patient: Internal Medicine: Result - Labs CBC & Chem 7: 06/04/19 04:36 06/04/19 04:36 Labs: Short CBC 06/04/19 Range/Units 04:36 WBC 5.8 (4.3-11.1) K/mcL Hgb 12.5 L (12.9-16.9) g/dL Hct 39.2 (37.5-50.1) % Plt Count 206 (140-400) K/mcL Neutrophils # 5.0 (1.6-8.9) K/mcL BMP 06/04/19 04:36 Sodium 135 L Potassium 4.7 Chloride 89 L Carbon Dioxide 43 H* BUN 12 Creatinine 0.36 L Glucose 138 H Calcium 9.3 - Impressions Impressions Chest X-Ray 06/03/19 14:32 IMPRESSION: 1. Improved bilateral lung infiltrates since the previous study. 2. Suspected trace bilateral pleural effusions. 3. Emphysema. D/ / 06/03/2019 14:55:32 Dawit Stevens MD / karis Interpreting Provider: Dawit Stevens MD Consult Discharge Plan - Plan Referrals: Layton Box MD [Primary Care Provider] - (3) HTN (hypertension) Qualifiers: Hypertension type: essential hypertension Qualified Code(s): I10 - Essential (primary) hypertension
[2019-06-05] MEDS: Ipratropium/Albuterol Neb 3 ML IH SCH ×3 (03:41→15:23)
[2019-06-05 04:51] LABS: Basophils % 0.1 %; Hematocrit 37.5 % (37.5-50.1); Immature Granulocytes % 0.4 % (0-4); Lymphocytes # 0.5 K/mcL (0.6-4.6); Lymphocytes % 6.5 %; Mean Corpuscular Hemoglobin 29.9 pg (28.0-33.3); Mean Corpuscular Volume 93.3 fL (83.0-100.0); Mean Platelet Volume 9.2 fL (9.4-12.4); Monocytes # 0.2 K/mcL (0.0-1.3); Neutrophils # 6.3 K/mcL (1.6-8.9); Platelet Count 202 K/mcL (140-400); Red Blood Count 4.02 M/mcL (4.19-5.50); Red Cell Distribution Width 13.4 % (11.5-14.5)
[2019-06-05 04:53] LABS: VBG HCO3 42 mEq/L (21-27); VBG PCO2 74 mmHg (41-51); VBG PH 7.37 pH Units (7.32-7.42); VBG PO2 65 mmHg (25-50)
[2019-06-05 05:19] LABS: BUN/Creatinine Ratio 31 (6-26); Blood Urea Nitrogen 14 mg/dL (8-23); Calcium 9.5 mg/dL (8.6-10.3); Carbon Dioxide 42 mEq/L (23-29); Chloride 89 mEq/L (98-107); Glucose 140 mg/dL (70-105); Osmolality,Calculated 279 (280-300); Potassium 4.7 mEq/L (3.5-5.1); Sodium 133 mEq/L (136-145); eGFR For African Americans > 60 (> 60); eGFR For Non-African Americans > 60 (> 60)
[2019-06-05] MEDS: *HR* Heparin 5,000 UNIT/ML VIAL SQ SCH (05:45)
[2019-06-05] MEDS: ALPRAZolam 0.5 MG TABLET PO SCH (09:39)
[2019-06-05] MEDS: MethylPREDNISolone 40 MG/ML VIAL IVP SCH (09:40)
[2019-06-05] MEDS: Aspirin 81 MG TAB.CHEW PO SCH (09:41)
[2019-06-05] MEDS: Loratadine 10 MG TABLET PO SCH (09:42)
[2019-06-05] MEDS: levoFLOXacin 750 MG/150 ML 750 MG/150 ML BAG IVPB SCH (09:42)
[2019-06-05] MEDS: Budesonide/Formoterol 160/4.5 1 PUFF INH IH SCH (10:47)
[2019-06-05 12:15] VITALS: BP 143/76
--- NOTE | 2019-06-05 12:27 | Discharge Summary ---
- NOTES TO OUTPATIENT PROVIDER Notes to Outpatient Provider: Presented wiht the SOB, had COPD exacerbation and hypercapnia, discharging on steroids. Orders not resulted at time of discharge: Pending orders 06/02/19 07:08 Blood Culture [Culture,Blood] [BC] Stat Date of Encounter: 06/05/19 Time of Encounter: 09:45 - Discharge Diagnosis (1) Acute on chronic respiratory failure with hypoxia and hypercapnia Priority: Primary Status: Acute (2) COPD exacerbation Priority: Secondary Status: Acute (3) HTN (hypertension) Priority: Secondary Status: Acute Qualifiers: Hypertension type: essential hypertension Qualified Code(s): I10 - Essential (primary) hypertension (4) Chronic hyponatremia Priority: Secondary Status: Acute (5) DVT prophylaxis Priority: Secondary Status: Acute Hospital course: Mr. Schmidt is a 68 year old male with a past medical history significant for stage IV COPD status post lung reduction surgery, presented to the hospital because of worsening shortness of breath. Patient was found to be hypercapnic on blood gases. He was admitted for further management of exacerbation of COPD and was started on BiPAP. Patient blood gases were repeated in the hospital but they were actually worse. Blood gases today in the morning are showing PCO2 of 74, discussed with the patient seems like this is patient's baseline pCO2. Pulmonology was also consulted, started the patient on theophyline. He also got levofloxacin for 3 days for COPD exacerbation. Chest x-ray is not concerning for pneumonia. Today, patient is feeling much better. He is alert, oriented. Able to follow commands.. His breathing status is close to his baseline. He is being discharged in stable condition back to home. He will be on prednisone taper for the next 2-3 weeks instructions provided. He will also be discharged on theophylline. Discussed the plan with the patient and the who are agreeable to that plan. - Time Spent with Patient Total time spent providing and/or coordinating discharge services: 25 minutes - Discharge Medications Prescriptions: New predniSONE [PredniSONE] See Taper PO DAILY #65 tablet Theophylline Anhydrous [Ricki-24] 100 mg PO DAILY #30 cap.er.24h Continued ALPRAZolam [Xanax 0.5 MG Tablet] 0.5 mg PO BID Ipratropium/Albuterol Neb [Duoneb] 3 ml IH QID Albuterol Sulfate [Ventolin Hfa] 2 puff IH Q4H PRN PRN Reason: Shortness Of Breath Aspirin 81 mg PO DAILY tab.chew Ipratropium [place] 2 spray NS DAILY Fluticasone/Umeclidin/Vilanter [Trelegy Ellipta 100-62.5-25] 1 puff IH DAILY Tamsulosin HCl 0.4 mg PO DAILY Mirtazapine [Remeron] 15 mg PO Q48H Levocetirizine Dihydrochloride [Allergy Relief (Xyzal)] 5 mg PO DAILY Discontinued Budesonide/Formoterol 160/4.5 [Symbicort 160/4.5] 2 puff IH BIDR Umeclidinium [place] [Incruse Ellipta] 1 puff IH DAILY Clarithromycin [Biaxin] 500 mg PO BID Home Medications: ALPRAZolam [Xanax 0.5 MG Tablet] 0.5 mg PO BID 05/17/17 [History] Albuterol Sulfate [Ventolin Hfa] 2 puff IH Q4H PRN 06/12/17 [History] Ipratropium/Albuterol Neb [Duoneb] 3 ml IH QID 06/12/17 [History] Aspirin 81 mg PO DAILY tab.chew 11/13/17 [Rx] Fluticasone/Umeclidin/Vilanter [Trelegy Ellipta 100-62.5-25] 1 puff IH DAILY 06/02/19 [History] Ipratropium [place] 2 spray NS DAILY 06/02/19 [History] Levocetirizine Dihydrochloride [Allergy Relief (Xyzal)] 5 mg PO DAILY 06/02/19 [History] Mirtazapine [Remeron] 15 mg PO Q48H 06/02/19 [History] Tamsulosin HCl 0.4 mg PO DAILY 06/02/19 [History] Theophylline Anhydrous [Ricki-24] 100 mg PO DAILY #30 cap.er.24h 06/05/19 [Rx] predniSONE [PredniSONE] See Taper PO DAILY #65 tablet 06/05/19 [Rx] Allergies/Adverse Reactions: Allergy/AdvReac Type Severity Reaction Status Date / Time Penicillins [PCN] Allergy Mild Hives Verified 06/24/18 13:30 Date of admission: 06/03/19 20:09 Primary care physician: Layton Box MD Consults: 06/02/19 09:11 consult to gym attendant [Consult to Nutrition] [CONS] Routine Comment: Consulting Provider: NUTRITION Reason for Dietary Consult: Diet Education Other:: protein malnutrition, suspect increased catabolism from Advanced COPD 06/04/19 07:43 Consult to Pulmonology [CONS] Routine Consulting Provider: [facility] [place] Reason for Consult: Exacerbation of COPD, stage IV. Persistent hypercapnia Call Completed: Yes - Constitutional Vitals: Temp Pulse Resp BP Pulse Ox 98.6 F 84 16 143/76 98 06/05/19 10:55 06/05/19 10:55 06/05/19 10:55 06/05/19 10:55 06/05/19 10:55 Exam: General: Alert and oriented, moderate physical distress, able to follow commands. HEENT: No thyromegaly, no lymphadenopathy, no discharge. Eyes: No discharge. Normal conjuctiva, no icterus Respiratory: Diminished breath sounds with mild vein, improved,, nonlabored respiration, saturating in the low 90s on room air. CVS: Normal heart sounds, no murmurs, regular rhthm, no edema Gastrointestinal: Soft, nontender abdomen, normal abdominal sounds. No distention noted. Genitourinary: No paravertebral tenderness. Skin: No rash, ulcers or wound. Neurological: Alert and oriented. No focal deficits. Cranial nerves II-XII intact. - Patient Status Disposition: Home, Self-Care Condition: Good Overall status at discharge: patient is progressing back to baseline - Discharge Instructions Follow Up With: Layton Box MD [Primary Care Provider] - Additional Instructions: Fluid restriction of 1500 ml per day. - Diet and Activity Activity: increase activity as tolerated Diet: advance to your usual diet
--- NOTE | 2019-06-05 13:55 | Pulmonology Progress Note ---
<Juan Manuel Girard - Last Filed: 06/05/19 13:46> Date of Encounter: 06/05/19 Time of Encounter: 10:00 (guessed) Assessment and Plan (1) Acute on chronic respiratory failure with hypoxia and hypercapnia Status: Acute (2) COPD exacerbation Status: Acute Subjective Interval history: Subjective Patient seen and examined at bedside. He feels better. Objective PE Gen.: Middle-aged male. Sitting on side of bed Skin: Erythematous appearance of facies and anterior chest wall. Eyes: Moist. Anicteric Cardiac: S1, S2. No obvious murmurs gallops rubs heard. Respiratory: Diffuse crackles posteriorly. Seems to be moving air better than yesterday. No wheezing heard. A/P #Acute on chronic respiratory failure with hypercapnia and hypoxia Consider decompensation from baseline COPD in the setting of recent suspected URI-like illness Increased dyspnea and mucus production recently Wells score for PE 06/04: 0 VBG CO2: 74 on 06/02 > 89 on 06/04 05/[address] read as: Emphysema -chronic hypercapnia -treatment of suspected etiologies as below -Follow up with [facility] primary care provider. -Pulmonology will sign off. Thank you for the consult. #COPD exacerbation Consider worsened baseline of this chronic condition cannot find PFT's on file. done at [facility]. CT scan showing panacinar emphysema. history of chronic bronchitis. -ICS/LABA -MARIAM/MICHELLE -Theophylline. Recommend continuation outpatient. -Transition to oral steroids and taper 40 mg daily for 5 days Objective PUL Vital signs: Last Vital Signs Temp 98.6 F 06/05/19 10:55 Pulse 84 06/05/19 10:55 Resp 16 06/05/19 10:55 BP 143/76 06/05/19 10:55 Pulse Ox 98 06/05/19 10:55 Results - Laboratory Findings CBC and BMP: 06/05/19 04:32 06/05/19 04:32 Abnormal lab findings: Abnormal lab results RBC 4.02 M/mcL (4.19-5.50) L 06/05/19 04:32 Hgb 12.0 g/dL (12.9-16.9) L 06/05/19 04:32 Hct 36.5 % (37.5-50.1) L 06/03/19 05:05 MCHC 31.5 g/dL (31.6-35.5) L 06/03/19 05:05 MPV 9.2 fL (9.4-12.4) L 06/05/19 04:32 Lymphocytes # 0.5 K/mcL (0.6-4.6) L 06/05/19 04:32 Reactive Lymphocytes Present (Not Present) A 06/03/19 05:05 VBG pCO2 74 mmHg (41-51) H* 06/05/19 04:46 VBG pO2 65 mmHg (25-50) H 06/05/19 04:46 VBG HCO3 42 mEq/L (21-27) H 06/05/19 04:46 Sodium 133 mEq/L (136-145) L 06/05/19 04:32 Chloride 89 mEq/L (98-107) L 06/05/19 04:32 Carbon Dioxide 42 mEq/L (23-29) H* 06/05/19 04:32 Creatinine 0.45 mg/dL (0.70-1.30) L 06/05/19 04:32 BUN/Creatinine Ratio 31 (6-26) H 06/05/19 04:32 Glucose 140 mg/dL (70-105) H 06/05/19 04:32 Calculated Osmolality 279 (280-300) L 06/05/19 04:32 - Microbiology Findings Microbiology Findings: Microbiology, Last 48 Hours 06/04/19 15:44 Influenza Types A,B Antigen - Final Nasopharyngeal - Clinical Findings Intake & Output: Intake & Output 06/04/19 06/05/19 06/05/19 23:59 07:59 15:59 Intake Total 120 / 930 270 / 270 Balance 120 / 630 270 / 270 Weight 63.2 kg Consult Discharge Plan - Plan Instructions: Acute Respiratory Distress Syndrome (DC), Chronic Obstructive Pulmonary Disease (DC) Additional Instructions: Fluid restriction of 1500 ml per day. Referrals: Layton Box MD [Primary Care Provider] - (patient is to call there office to set up a appt) Prescriptions: predniSONE [PredniSONE] See Taper PO DAILY #65 tablet Transmission Status: Received by [id number] Theophylline Anhydrous [Ricki-24] 100 mg PO DAILY #30 cap.er.24h Transmission Status: Received by [facility] <Torrey Miles M - Last Filed: 06/05/19 16:36> Date of Encounter: 06/05/19 Objective PUL Vital signs: Last Vital Signs Temp 98.6 F 06/05/19 10:55 Pulse 84 06/05/19 10:55 Resp 16 06/05/19 15:23 BP 143/76 06/05/19 10:55 Pulse Ox 96 06/05/19 15:23 Results - Laboratory Findings CBC and BMP: 06/05/19 04:32 06/05/19 04:32 Abnormal lab findings: Abnormal lab results RBC 4.02 M/mcL (4.19-5.50) L 06/05/19 04:32 Hgb 12.0 g/dL (12.9-16.9) L 06/05/19 04:32 Hct 36.5 % (37.5-50.1) L 06/03/19 05:05 MCHC 31.5 g/dL (31.6-35.5) L 06/03/19 05:05 MPV 9.2 fL (9.4-12.4) L 06/05/19 04:32 Lymphocytes # 0.5 K/mcL (0.6-4.6) L 06/05/19 04:32 Reactive Lymphocytes Present (Not Present) A 06/03/19 05:05 VBG pCO2 74 mmHg (41-51) H* 06/05/19 04:46 VBG pO2 65 mmHg (25-50) H 06/05/19 04:46 VBG HCO3 42 mEq/L (21-27) H 06/05/19 04:46 Sodium 133 mEq/L (136-145) L 06/05/19 04:32 Chloride 89 mEq/L (98-107) L 06/05/19 04:32 Carbon Dioxide 42 mEq/L (23-29) H* 06/05/19 04:32 Creatinine 0.45 mg/dL (0.70-1.30) L 06/05/19 04:32 BUN/Creatinine Ratio 31 (6-26) H 06/05/19 04:32 Glucose 140 mg/dL (70-105) H 06/05/19 04:32 Calculated Osmolality 279 (280-300) L 06/05/19 04:32 - Microbiology Findings Microbiology Findings: Microbiology, Last 48 Hours 06/04/19 15:44 Influenza Types A,B Antigen - Final Nasopharyngeal - Clinical Findings Intake & Output: Intake & Output 06/05/19 06/05/19 06/05/19 07:59 15:59 23:59 Intake Total 270 / 270 Balance 270 / 270 Weight 63.2 kg - Attending Attestation I examined this patient and my medical decision-making was reviewed with the Resident Physician. I agree with the documented findings, disposition and treatment plan as described except to the extent set forth below. Patient seen and examined. Labs, radiology, chart personally reviewed. 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 Patient to continue low dose theophylline at this time and will follow-up with his primary care provider at [facility]. I have told him we will be happy to take care of him if he wants to follow-up with [facility]. Thank you for consultation.
== END 2019-06-05 16:03 | disposition home or self-care (01) | DRG 190 ==
LOC: SUATTDRO → EMEROOARM 04:41 → 2NENU 07:38 → SUATTDRO 07:38 → INTOOBSV 07:38 → 2NENU 08:09
PROVIDERS: ADMIT Pharmacist; ATTEND Internal Medicine

== ENCOUNTER 2020-07-08 13:04 | Inpatient (IN) ==
[2020-07-08] MEDS ORDERED: methylPREDNISolone 125 MG/2 ML VIAL IVP ONE (13:14)
[2020-07-08] MEDS ORDERED: Ipratropium/Albuterol Neb 3 ML IH ONE (13:14)
[2020-07-08 13:49] LABS: Basophils # 0.1 K/mcL (0.0-0.2); Basophils % 0.7 %; Eosinophils # 0.3 K/mcL (0.0-0.6); Eosinophils % 4.4 %; Hematocrit 41.6 % (37.5-50.1); Hemoglobin 12.8 g/dL (12.9-16.9); Immature Granulocytes % 0.3 % (0-4); Lymphocytes # 0.9 K/mcL (0.6-4.6); Lymphocytes % 13.6 %; Mean Corpuscular HGB Conc 30.8 g/dL (31.6-35.5); Mean Corpuscular Hemoglobin 29.1 pg (28.0-33.3); Mean Corpuscular Volume 94.5 fL (83.0-100.0); Mean Platelet Volume 9.9 fL (9.4-12.4); Monocytes # 0.9 K/mcL (0.0-1.3); Neutrophils # 4.6 K/mcL (1.6-8.9); Platelet Count 157 K/mcL (140-400); Red Cell Distribution Width 13.7 % (11.5-14.5); White Blood Count 6.8 K/mcL (4.3-11.1)
[2020-07-08 14:21] LABS: BUN/Creatinine Ratio 28 (6-26); Blood Urea Nitrogen 10 mg/dL (8-23); Calcium 9.5 mg/dL (8.6-10.3); Carbon Dioxide 45 mEq/L (23-29); Chloride 86 mEq/L (98-107); Glucose 119 mg/dL (70-105); Osmolality,Calculated 280 (280-300); Potassium 4.8 mEq/L (3.5-5.1); Sodium 135 mEq/L (136-145); eGFR For African Americans > 60 (> 60); eGFR For Non-African Americans > 60 (> 60)
[2020-07-08] MEDS ORDERED: Azithromycin 500 MG in 0.9 % Sodium Chloride 250 ML IVPB ONE (15:29)
[2020-07-08] MEDS ORDERED: Naloxone 0.4 MG/ML INJ IVP PRN (17:21)
[2020-07-08 17:52] LABS: ABG Base Excess 15 mEq/L (-2 to 3); ABG HCO3 46 mEq/L (21-27); ABG Oxygen Saturation 96 % (95-98); ABG PCO2 90 mmHg (35-45); ABG PH 7.32 pH Units (7.32-7.45); ABG PO2 96 mmHg (85-104); ABG TCO2 49 mEq/L (20-26)
[2020-07-08] MEDS ORDERED: Mirtazapine 15 MG TABLET PO SCH (18:30)
[2020-07-08] MEDS: Levalbuterol Neb 1.25 MG/3 ML IH SCH ×3 (19:39→22:57)
[2020-07-08] MEDS: ALPRAZolam 0.5 MG TABLET PO SCH (20:25)
[2020-07-08] MEDS: *HR* Heparin 5,000 UNIT/ML VIAL SQ SCH (20:28)
[2020-07-08 23:20] LABS: ABG Base Excess 14 mEq/L (-2 to 3); ABG HCO3 46 mEq/L (21-27); ABG Oxygen Saturation 99 % (95-98); ABG PCO2 99 mmHg (35-45); ABG PH 7.27 pH Units (7.32-7.45); ABG PO2 143 mmHg (85-104); ABG TCO2 49 mEq/L (20-26)
[2020-07-09 00:37] LABS: Blood Gas VT 500 cc; Mixed Venous Blood pCO2 78 mmHg (44-46); Mixed Venous Blood pH 7.36 pH Units (7.34-7.36); Mixed Venous Blood pO2 51 mmHg (35-45)
[2020-07-09] MEDS: Levalbuterol Neb 1.25 MG/3 ML IH SCH ×6 (04:19→23:44)
[2020-07-09] MEDS: *HR* Heparin 5,000 UNIT/ML VIAL SQ SCH ×3 (06:04→20:09)
[2020-07-09 06:24] LABS: Hematocrit 37.2 % (37.5-50.1); Hemoglobin 11.6 g/dL (12.9-16.9); Mean Corpuscular HGB Conc 31.2 g/dL (31.6-35.5); Mean Corpuscular Hemoglobin 28.5 pg (28.0-33.3); Mean Corpuscular Volume 91.4 fL (83.0-100.0); Mean Platelet Volume 9.6 fL (9.4-12.4); Platelet Count 156 K/mcL (140-400); Red Blood Count 4.07 M/mcL (4.19-5.50); Red Cell Distribution Width 13.7 % (11.5-14.5)
[2020-07-09 06:48] LABS: BUN/Creatinine Ratio 31 (6-26); Blood Urea Nitrogen 9 mg/dL (8-23); Carbon Dioxide 43 mEq/L (23-29); Chloride 90 mEq/L (98-107); Chol/HDL Ratio 1.8 (0-4.9); Cholesterol 189 mg/dL (< 200); Glucose 128 mg/dL (70-105); HDL Cholesterol 104 mg/dL (40-59); LDL Cholesterol,Calculated 73 mg/dL (< 100); Osmolality,Calculated 282 (280-300); Potassium 4.5 mEq/L (3.5-5.1); Sodium 136 mEq/L (136-145); Triglycerides 61 mg/dL (< 150); eGFR For African Americans > 60 (> 60); eGFR For Non-African Americans > 60 (> 60)
[2020-07-09] MEDS: ALPRAZolam 0.5 MG TABLET PO SCH ×3 (08:06→20:08)
[2020-07-09] MEDS: Loratadine 10 MG TABLET PO SCH (08:07)
[2020-07-09] MEDS: Aspirin 81 MG TAB.CHEW PO SCH (08:07)
[2020-07-09] MEDS ORDERED: NON-FORMULARY MEDICATION 1 EACH EACH (Fluticasone/Umeclidin/Vilanter [Trelegy Ellipta 100- IH SCH (09:00)
[2020-07-09] MEDS: polyethylene glycoL 3350 17 GM POWD.PACK PO SCH (10:42)
[2020-07-09] MEDS: Tiotropium 18 MCG inhalation IH SCH (11:33)
[2020-07-09] MEDS: Budesonide/Formoterol 160/4.5 1 PUFF INH IH SCH ×2 (11:35→19:57)
[2020-07-09 12:08] LABS: ABG Base Excess 18 mEq/L (-2 to 3); ABG HCO3 49 mEq/L (21-27); ABG Oxygen Saturation 88 % (95-98); ABG PCO2 83 mmHg (35-45); ABG PH 7.38 pH Units (7.32-7.45); ABG PO2 59 mmHg (85-104); ABG TCO2 > 50 mEq/L (20-26)
[2020-07-09] MEDS ORDERED: Simethicone 80 MG TAB.CHEW PO PRN (12:30)
[2020-07-09] MEDS: Cefepime HCl 2,000 MG in Water for inj. (sterile) 20 ML IVP SCH ×2 (15:37→23:37)
[2020-07-09] MEDS ORDERED: Azithromycin 500 MG in 0.9 % Sodium Chloride 250 ML IVPB SCH (16:00)
[2020-07-09] MEDS: MethylPREDNISolone 40 MG/ML VIAL IVP SCH (17:15)
[2020-07-09 19:39] LABS: Adenovirus Not Detected (Not Detect); Coronavirus 229E Not Detected (Not Detect); Coronavirus HKU1 Not Detected (Not Detect); Coronavirus NL63 Not Detected (Not Detect); Coronavirus OC43 Not Detected (Not Detect); Human Metapneumovirus Not Detected (Not Detect); Human Rhinovirus/Enterovirus Not Detected (Not Detect); Influenza A Subtype 2009 H1 Not Detected (Not Detect); Influenza B Not Detected (Not Detect); Parainfluenza Virus 1 Not Detected (Not Detect); SARS-CoV-2 Not Detected (Not Detect)
[2020-07-09 19:40] LABS: Bordetella Pertussis Not Detected (Not Detect); Chlamydophila pneumoniae Not Detected (Not Detect); Mycoplasma pneumoniae Not Detected (Not Detect); Parainfluenza Virus 2 Not Detected (Not Detect); Parainfluenza Virus 3 Not Detected (Not Detect); Parainfluenza Virus 4 Not Detected (Not Detect); Respiratory Syncytial Virus Not Detected (Not Detect)
[2020-07-09] MEDS: Mirtazapine 15 MG TABLET PO SCH (20:08)
[2020-07-10 01:11] LABS: Basophils % 0.1 %; Hematocrit 39.3 % (37.5-50.1); Immature Granulocytes % 0.3 % (0-4); Lymphocytes # 0.3 K/mcL (0.6-4.6); Lymphocytes % 4.3 %; Mean Corpuscular HGB Conc 30.5 g/dL (31.6-35.5); Mean Corpuscular Hemoglobin 29.3 pg (28.0-33.3); Mean Corpuscular Volume 96.1 fL (83.0-100.0); Mean Platelet Volume 9.3 fL (9.4-12.4); Monocytes # 0.2 K/mcL (0.0-1.3); Monocytes % 2.7 %; Neutrophils # 6.5 K/mcL (1.6-8.9); Platelet Count 170 K/mcL (140-400); Red Blood Count 4.09 M/mcL (4.19-5.50); Red Cell Distribution Width 13.7 % (11.5-14.5); Segmented Neutrophils % 92.6 %
[2020-07-10 01:31] LABS: Phosphorous 3.4 mg/dL (2.7-4.5)
[2020-07-10 01:33] LABS: BUN/Creatinine Ratio 32 (6-26); Blood Urea Nitrogen 15 mg/dL (8-23); Carbon Dioxide 43 mEq/L (23-29); Chloride 89 mEq/L (98-107); Glucose 224 mg/dL (70-105); Osmolality,Calculated 292 (280-300); Sodium 137 mEq/L (136-145); eGFR For African Americans > 60 (> 60); eGFR For Non-African Americans > 60 (> 60)
[2020-07-10] MEDS: Levalbuterol Neb 1.25 MG/3 ML IH SCH ×5 (03:34→20:26)
[2020-07-10] MEDS: *HR* Heparin 5,000 UNIT/ML VIAL SQ SCH ×3 (05:30→20:47)
[2020-07-10] MEDS: MethylPREDNISolone 40 MG/ML VIAL IVP SCH ×2 (05:30→16:57)
[2020-07-10] MEDS: Tiotropium 18 MCG inhalation IH SCH (07:49)
[2020-07-10] MEDS: Budesonide/Formoterol 160/4.5 1 PUFF INH IH SCH ×2 (07:50→20:29)
[2020-07-10] MEDS: Cefepime HCl 2,000 MG in Water for inj. (sterile) 20 ML IVP SCH ×2 (09:32→15:04)
[2020-07-10] MEDS: polyethylene glycoL 3350 17 GM POWD.PACK PO SCH (09:33)
[2020-07-10] MEDS: Aspirin 81 MG TAB.CHEW PO SCH (09:33)
[2020-07-10] MEDS: ALPRAZolam 0.5 MG TABLET PO SCH ×3 (09:33→20:46)
[2020-07-10] MEDS: Loratadine 10 MG TABLET PO SCH (09:34)
[2020-07-10] MEDS: Acetaminophen 325 MG TABLET PO PRN ×2 (12:37→20:46)
[2020-07-10] MEDS: lisinopriL 5 MG TABLET PO SCH (15:05)
[2020-07-10] MEDS: Mirtazapine 15 MG TABLET PO SCH (20:46)
[2020-07-11] MEDS: Levalbuterol Neb 1.25 MG/3 ML IH SCH ×3 (00:32→07:55)
[2020-07-11] MEDS: Cefepime HCl 2,000 MG in Water for inj. (sterile) 20 ML IVP SCH ×2 (00:40→09:26)
[2020-07-11] MEDS: MethylPREDNISolone 40 MG/ML VIAL IVP SCH (04:53)
[2020-07-11] MEDS: *HR* Heparin 5,000 UNIT/ML VIAL SQ SCH (04:54)
[2020-07-11 06:08] LABS: BUN/Creatinine Ratio 41 (6-26); Blood Urea Nitrogen 18 mg/dL (8-23); Calcium 9.4 mg/dL (8.6-10.3); Carbon Dioxide 45 mEq/L (23-29); Chloride 90 mEq/L (98-107); Glucose 126 mg/dL (70-105); Magnesium 2.1 mg/dL (1.6-2.6); Osmolality,Calculated 289 (280-300); Phosphorous 4.2 mg/dL (2.7-4.5); Potassium 4.9 mEq/L (3.5-5.1); Sodium 138 mEq/L (136-145); eGFR For African Americans > 60 (> 60); eGFR For Non-African Americans > 60 (> 60)
[2020-07-11 07:12] VITALS: BP 127/62
[2020-07-11] MEDS: Tiotropium 18 MCG inhalation IH SCH (07:55)
[2020-07-11] MEDS: Budesonide/Formoterol 160/4.5 1 PUFF INH IH SCH (07:55)
[2020-07-11] MEDS: ALPRAZolam 0.5 MG TABLET PO SCH (09:25)
[2020-07-11] MEDS: Aspirin 81 MG TAB.CHEW PO SCH (09:25)
[2020-07-11] MEDS: lisinopriL 5 MG TABLET PO SCH (09:26)
[2020-07-11] MEDS: Loratadine 10 MG TABLET PO SCH (09:26)
[2020-07-11] MEDS: polyethylene glycoL 3350 17 GM POWD.PACK PO SCH (09:26)
== END 2020-07-11 11:30 | disposition home or self-care (01) | DRG 190 ==
LOC: 3BNU 13:04 → EMEROOARM 13:04 → SUATTDRO 15:55 → 3BNU 16:55
PROVIDERS: ADMIT Family Medicine; ATTEND Internal Medicine